=== PATIENT | female | born 1970 | race African-American/Black ===

== ENCOUNTER 2016-07-04 17:17 | Emergency (ER) | payer OTHER ==
[~2016-07-04] VITALS: Ht 149.9 cm; Wt 104.3 kg
[~2016-07-04 17:17] MED LIST: ALPR2TAB2 PO; ASPI-498 PO; CARI-277 PO; CITA-77 PO; DOCU100T15 PO; ENAL20TA70 PO; GABA-339 PO; HYDR25TA4 PO; IBUP-1174 PO; INSLANTI; LIRA18IN2 SUBCUT; LUBI8CAP4 PO; MELO-86 PO; METF-312 PO; PREG50CA PO; SIME80CH6 PO; TEMA30CA PO; ZIPR80CA8 PO
[2016-07-04] MEDS ORDERED: DEXTROSE (50%) 50ML SYRG IV PRN (18:30)
[2016-07-04] MEDS ORDERED: IBUPROFEN 600 MG TAB PO PRN (22:00)
[2016-07-04] MEDS: ACCU-CHEK COMFORT CURVE STRIP VI SCH (22:00)
[2016-07-04] MEDS: AMITIZA 8 MCG PO SCH ×2 (22:00→22:45)
[2016-07-04] MEDS: INSULIN DETEMIR(LEVEMIR) 1unit/0.01ml Soln (100units/ml) SC SCH (22:00)
[2016-07-05] MEDS: metFORMIN HYDROCHLORIDE 500 MG TAB PO SCH ×3 (02:57→20:31)
[2016-07-05] MEDS: GABAPENTIN 400 MG CAP PO SCH ×4 (02:58→22:45)
[2016-07-05] MEDS: PREGABALIN CAPSULE 75 MG CAP PO SCH ×4 (02:58→22:45)
[2016-07-05] MEDS: CARISOPRODOL 350 MG TAB PO SCH ×2 (02:59→10:00)
[2016-07-05] MEDS: InsuLIN REG 1unit/0.01ml Soln (100units/ml) SC SCH ×5 (02:59→22:45)
[2016-07-05] MEDS: ACCU-CHEK COMFORT CURVE STRIP VI SCH ×4 (07:30→22:06)
[2016-07-05] MEDS: HCTZ 25 MG TAB PO SCH (07:45)
[2016-07-05] MEDS: ENALAPRIL MALEATE 10 MG TAB PO SCH (07:45)
[2016-07-05] MEDS: ASPirin-EC 81 mg tab PO SCH (07:45)
[2016-07-05] MEDS: CITALOPRAM HYDROBR 20 MG TAB PO SCH (07:45)
[2016-07-05] MEDS: INSULIN DETEMIR(LEVEMIR) 1unit/0.01ml Soln (100units/ml) SC SCH ×2 (08:30→22:44)
[2016-07-05] MEDS ORDERED: PRE FILLED SC SCH (10:00)
[2016-07-05] MEDS ORDERED: VICTOZA 18 MG/3 ML SC SCH (10:00)
[2016-07-05] MEDS: HYDROcodone-ACET 5/325MG TAB PO PRN (10:00)
[2016-07-05] MEDS: AMITIZA 8 MCG PO SCH (10:08)
[2016-07-05] MEDS: MELOXICAM 15MG PO SCH (10:08)
[2016-07-05 21:04] VITALS: BP 144/86
[2016-07-05] MEDS: VICTOZA 18 MG/3 ML SC SCH (22:45)
[2016-07-05] MEDS: PRE FILLED SC SCH (22:45)
[2016-07-06] MEDS ORDERED: GABAPENTIN 400 MG CAP ONE (06:27)
[2016-07-06] MEDS: GABAPENTIN 400 MG CAP PO SCH ×3 (06:34→23:00)
[2016-07-06] MEDS: PREGABALIN CAPSULE 75 MG CAP PO SCH ×3 (06:34→23:00)
[2016-07-06] MEDS: ACCU-CHEK COMFORT CURVE STRIP VI SCH ×4 (06:40→23:00)
[2016-07-06] MEDS: InsuLIN REG 1unit/0.01ml Soln (100units/ml) SC SCH ×4 (06:40→22:00)
[2016-07-06] MEDS: metFORMIN HYDROCHLORIDE 500 MG TAB PO SCH ×2 (08:58→18:17)
[2016-07-06] MEDS: HYDROcodone-ACET 5/325MG TAB PO PRN ×2 (09:40→23:01)
[2016-07-06] MEDS: AMITIZA 8 MCG PO SCH ×2 (09:41→23:00)
[2016-07-06] MEDS: MELOXICAM 15MG PO SCH (09:41)
[2016-07-06] MEDS: CITALOPRAM HYDROBR 20 MG TAB PO SCH (09:44)
[2016-07-06] MEDS: HCTZ 25 MG TAB PO SCH (09:46)
[2016-07-06] MEDS: ASPirin-EC 81 mg tab PO SCH (09:46)
[2016-07-06] MEDS: ENALAPRIL MALEATE 10 MG TAB PO SCH (09:46)
[2016-07-06] MEDS: INSULIN DETEMIR(LEVEMIR) 1unit/0.01ml Soln (100units/ml) SC SCH ×2 (09:49→22:00)
[2016-07-06] MEDS: ALPRAZolam 0.5 MG TAB PO PRN ×2 (09:53→23:01)
[2016-07-06] MEDS ORDERED: TEMAZEPAM 15 MG CAP PO ONE (22:45)
[2016-07-06] MEDS: VICTOZA 18 MG/3 ML SC SCH (23:00)
[2016-07-06] MEDS: CARISOPRODOL 350 MG TAB PO SCH (23:00)
[2016-07-06] MEDS: PRE FILLED SC SCH (23:00)
[2016-07-07] MEDS: PREGABALIN CAPSULE 75 MG CAP PO SCH ×2 (06:08→15:18)
[2016-07-07] MEDS: GABAPENTIN 400 MG CAP PO SCH ×2 (06:08→15:18)
[2016-07-07] MEDS: InsuLIN REG 1unit/0.01ml Soln (100units/ml) SC SCH ×2 (10:10→15:18)
[2016-07-07] MEDS: ACCU-CHEK COMFORT CURVE STRIP VI SCH ×2 (10:10→15:18)
[2016-07-07] MEDS: ASPirin-EC 81 mg tab PO SCH (10:30)
[2016-07-07] MEDS: AMITIZA 8 MCG PO SCH (10:30)
[2016-07-07] MEDS: metFORMIN HYDROCHLORIDE 500 MG TAB PO SCH (10:30)
[2016-07-07] MEDS: CITALOPRAM HYDROBR 20 MG TAB PO SCH (10:30)
[2016-07-07] MEDS: ENALAPRIL MALEATE 10 MG TAB PO SCH (10:30)
[2016-07-07] MEDS: INSULIN DETEMIR(LEVEMIR) 1unit/0.01ml Soln (100units/ml) SC SCH (10:30)
[2016-07-07] MEDS: HCTZ 25 MG TAB PO SCH (10:30)
[2016-07-07] MEDS: MELOXICAM 15MG PO SCH (10:30)
[2016-07-07] MEDS: HYDROcodone-ACET 5/325MG TAB PO PRN (15:19)
[2016-07-07 16:55] VITALS: BP 111/67
== END 2016-07-07 17:00 | disposition home or self-care (01) ==
LOC: ER 17:21
DX: F32.9 Major depressive disorder, single episode, unspecified (principal); F20.9 Schizophrenia, unspecified; M19.90 Unspecified osteoarthritis, unspecified site; R45.851 Suicidal ideations; E11.9 Type 2 diabetes mellitus without complications; E78.5 Hyperlipidemia, unspecified; I10 Essential (primary) hypertension; Z90.49 Acquired absence of other specified parts of digestive tract
CPT/HCPCS: 82962; 94660; 96372; 99285; J1815

== ENCOUNTER 2016-10-02 14:36 | Emergency (ER) | payer OTHER ==
[~2016-10-02] VITALS: Ht 162.6 cm; Wt 107.0 kg
[~2016-10-02 14:36] MED LIST changes: -METF-312 PO; +METF-370 PO
[2016-10-02] MEDS ORDERED: ONDANSETRON HCL 4 MG/2 ML VIAL IV ONE (19:45)
[2016-10-02] MEDS ORDERED: HYDROmorphone HCL 2 MG/ML VL IM ONE (19:45)
[2016-10-02] MEDS ORDERED: cefTRIAXone SOD 1,000 MG VL IM ONE (19:45)
[2016-10-02 20:04] VITALS: BP 124/87
== END 2016-10-02 20:44 | disposition home or self-care (01) ==
LOC: EDBD 14:36 → ER 14:43
DX: M54.12 Radiculopathy, cervical region (principal); M25.512 Pain in left shoulder; M79.602 Pain in left arm; G89.29 Other chronic pain; M19.90 Unspecified osteoarthritis, unspecified site; E11.9 Type 2 diabetes mellitus without complications; E78.5 Hyperlipidemia, unspecified; I10 Essential (primary) hypertension; Z90.49 Acquired absence of other specified parts of digestive tract; Z79.82 Long term (current) use of aspirin; Z79.4 Long term (current) use of insulin
CPT/HCPCS: 72040; 72070; 96372; 96374; 99284; J0696; J1170; J2405

== ENCOUNTER 2017-01-24 18:27 | Emergency (ER) | payer OTHER ==
[~2017-01-24] VITALS: Ht 167.6 cm; Wt 99.8 kg
[~2017-01-24 18:27] MED LIST changes: -MELO-86 PO; +MELO15TA4 PO
[2017-01-24] MEDS ORDERED: SODIUM CHLORIDE 0.9% 1,000 ML IVB ONE (18:32)
[2017-01-24] MEDS ORDERED: LORazepam 2MG/ML-1ML VIAL IV ONE (18:45)
[2017-01-24 18:55] VITALS: BP 133/68
[2017-01-24 19:54] LABS: Basophils # (auto) 0 uL; Basophils % (auto) 0.5 % (0.0-2.0); Eosinophils # (auto) 0.2 uL; Hematocrit 37.3 % (36.0-46.0); Hemoglobin 12.2 g/dL (12.2-16.2); Lymphocytes # (auto) 3.6 uL; Lymphocytes % (auto) 46.2 % (10.0-50.0); Mean Corpuscular Hemoglobin 30.1 pg (28.0-32.0); Mean Corpuscular Hgb Conc. 32.6 g/dL (32.0-36.0); Mean Corpuscular Volume 92.3 fL (80.0-100.0); Mean Platelet Volume 8.3 fL (6.9-10.8); Monocytes # (auto) 0.4 uL; Monocytes % (auto) 5.1 % (0.0-12.0); Neutrophils # (auto) 3.5 uL; Neutrophils % (auto) 45.2 % (37.0-80.0); Nucleated Red Blood Cells % 0.1 %; Platelet Count (auto) 324 10^3/uL (140-450); Red Cell Distribution Width 15.1 % (11.8-14.3); White Blood Cell 7.8 10^3/uL (4.4-10.8)
[2017-01-24 20:04] LABS: Albumin 3.5 g/dL (3.4-5.0); Anion Gap 10 (5-15); Aspartate Aminotransferase 19 U/L (15-37); BUN/Creatinine Ratio 20.6; Blood Urea Nitrogen 14 mg/dL (7-18); Calcium 8.7 mg/dL (8.5-10.1); Carbon Dioxide 23 mmol/L (21-32); Chloride 111 mmol/L (98-107); GFR African American 120 mL/min; GFR Non-African American 99 mL/min; Glucose 186 mg/dL (74-106); Potassium 3.5 mmol/L (3.5-5.1); Sodium 144 mmol/L (136-145)
[2017-01-24 20:06] LABS: Alkaline Phosphatase 76 U/L (45-117); Bilirubin, Total < 0.1 mg/dL (0.2-1.0); Total Protein 7.7 g/dL (6.4-8.2)
== END 2017-01-24 20:59 | disposition home or self-care (01) ==
LOC: EDBD 18:27 → ER 18:29
DX: F10.120 Alcohol abuse with intoxication, uncomplicated (principal); E11.9 Type 2 diabetes mellitus without complications; E78.5 Hyperlipidemia, unspecified; I10 Essential (primary) hypertension; M19.90 Unspecified osteoarthritis, unspecified site; Z90.49 Acquired absence of other specified parts of digestive tract; Z79.4 Long term (current) use of insulin; Z79.899 Other long term (current) drug therapy
CPT/HCPCS: 36415; 80053; 80320; 85025; 94761; 96361; 96374

== ENCOUNTER 2017-03-20 11:41 | Emergency (ER) | payer OTHER ==
[~2017-03-20] VITALS: Ht 149.9 cm; Wt 104.3 kg
[~2017-03-20 11:41] MED LIST changes: -MELO15TA4 PO; +MELO1TAB56 PO
[2017-03-20 11:50] VITALS: BP 135/76
[2017-03-20 12:53] LABS: Basophils # (auto) 0 uL; Basophils % (auto) 0.7 % (0.0-2.0); Eosinophils # (auto) 0.1 uL; Hematocrit 39.2 % (36.0-46.0); Hemoglobin 12.9 g/dL (12.2-16.2); Lymphocytes # (auto) 2.2 uL; Lymphocytes % (auto) 35.9 % (10.0-50.0); Mean Corpuscular Hemoglobin 29.8 pg (28.0-32.0); Mean Corpuscular Volume 90.3 fL (80.0-100.0); Monocytes # (auto) 0.5 uL; Monocytes % (auto) 8.9 % (0.0-12.0); Neutrophils # (auto) 3.2 uL; Neutrophils % (auto) 52.5 % (37.0-80.0); Nucleated Red Blood Cells % 0.1 %; Platelet Count (auto) 363 10^3/uL (140-450); Red Blood Cells 4.35 10^6/uL (4.0-5.20); Red Cell Distribution Width 16.2 % (11.8-14.3); White Blood Cell 6.2 10^3/uL (4.4-10.8)
[2017-03-20 13:40] LABS: Alanine Aminotransferase 19 U/L (13-56); Alkaline Phosphatase 70 U/L (45-117); Aspartate Aminotransferase 10 U/L (15-37); BUN/Creatinine Ratio 20.9; Bilirubin, Total 0.3 mg/dL (0.2-1.0); Blood Urea Nitrogen 14 mg/dL (7-18); Calcium 8.9 mg/dL (8.5-10.1); Chloride 105 mmol/L (98-107); GFR African American 122 mL/min; GFR Non-African American 101 mL/min; Glucose 103 mg/dL (74-106); Potassium 3.9 mmol/L (3.5-5.1); Sodium 141 mmol/L (136-145); Total Protein 7.5 g/dL (6.4-8.2)
[2017-03-20 13:41] LABS: Albumin 3.4 g/dL (3.4-5.0); Magnesium 2.3 mg/dL (1.6-2.6)
[2017-03-20 14:13] LABS: Anion Gap 10 (5-15); Carbon Dioxide 26 mmol/L (21-32)
== END 2017-03-20 14:00 | disposition left against medical advice (07) ==
LOC: ER 11:41 → EDBD 11:41 → ER 14:00
DX: R53.1 Weakness (principal); G89.29 Other chronic pain; M54.2 Cervicalgia; Z53.21 Procedure and treatment not carried out due to patient leaving prior to being seen by health care provider
CPT/HCPCS: 36415; 80053; 83735; 84484; 84702; 85025; 93005

== ENCOUNTER 2017-05-22 15:14 | Emergency (ER) | payer OTHER ==
[~2017-05-22] VITALS: Ht 149.9 cm; Wt 103.0 kg
[2017-05-22 15:33] VITALS: BP 138/95
[2017-05-22] MEDS ORDERED: HYDROcodone-ACET 10/325MG TAB PO ONE (17:45)
== END 2017-05-22 18:20 | disposition home or self-care (01) ==
LOC: ER 15:14 → EDBD 15:14 → ER 18:20
DX: J32.9 Chronic sinusitis, unspecified (principal); M54.2 Cervicalgia; E11.9 Type 2 diabetes mellitus without complications; I10 Essential (primary) hypertension; Z79.82 Long term (current) use of aspirin; Z79.4 Long term (current) use of insulin; Z90.49 Acquired absence of other specified parts of digestive tract; V49.50XA Passenger injured in collision with unspecified motor vehicles in traffic accident, initial encounter; Y93.89 Activity, other specified; Y92.488 Other paved roadways as the place of occurrence of the external cause; Y99.8 Other external cause status
CPT/HCPCS: 70450; 72125; 73502

== ENCOUNTER 2017-07-09 22:20 | Emergency (ER) | payer OTHER ==
[~2017-07-09] VITALS: Ht 149.9 cm; Wt 99.8 kg
[2017-07-09 22:41] VITALS: BP 141/68
[2017-07-10] MEDS ORDERED: cefTRIAXone SOD 1,000 MG VL IM ONE (01:15)
== END 2017-07-10 01:50 | disposition home or self-care (01) ==
LOC: ER 22:20
DX: N61.0 Mastitis without abscess (principal); I10 Essential (primary) hypertension; E11.9 Type 2 diabetes mellitus without complications; E78.5 Hyperlipidemia, unspecified; Z79.4 Long term (current) use of insulin; Z79.82 Long term (current) use of aspirin; Z90.49 Acquired absence of other specified parts of digestive tract
CPT/HCPCS: 82962; 96372; 99283; J0696

== ENCOUNTER 2019-02-10 17:00 | Emergency (ER) | payer OTHER ==
[~2019-02-10] VITALS: Ht 149.9 cm; Wt 107.5 kg
[~2019-02-10 17:00] MED LIST changes: +ENAL20TA PO; -ENAL20TA70 PO
[2019-02-10] MEDS ORDERED: KETOROLAC TROMETH 60MG/2ML VIAL IM ONE (21:30)
[2019-02-10] MEDS ORDERED: HYDROcodone-ACET 10/325MG TAB PO ONE ×2 (22:00)
[2019-02-10 23:50] VITALS: BP 151/70
== END 2019-02-10 23:54 | disposition home or self-care (01) ==
LOC: ER 17:00 → EDSEX 17:00 → EDBD 17:00 → ER 23:54
DX: M54.5 Low back pain (principal); G89.29 Other chronic pain; J45.909 Unspecified asthma, uncomplicated; I10 Essential (primary) hypertension; E11.9 Type 2 diabetes mellitus without complications; G62.9 Polyneuropathy, unspecified; F41.9 Anxiety disorder, unspecified; F32.9 Major depressive disorder, single episode, unspecified; F20.9 Schizophrenia, unspecified; E78.5 Hyperlipidemia, unspecified; Z79.899 Other long term (current) drug therapy; Z79.4 Long term (current) use of insulin; Z79.82 Long term (current) use of aspirin; Z90.49 Acquired absence of other specified parts of digestive tract; Z98.890 Other specified postprocedural states
CPT/HCPCS: 72128; 72131; 93005

== ENCOUNTER 2021-08-01 13:28 | Emergency (ER) | payer OTHER ==
[~2021-08-01] VITALS: Ht 149.9 cm; Wt 78.5 kg
[~2021-08-01 13:28] MED LIST changes: -ENAL20TA PO; +ENAL20TA8 PO; +ZIPR80CA37 PO; -ZIPR80CA8 PO
[2021-08-01 14:34] VITALS: BP 128/71
[2021-08-01] MEDS ORDERED: IBUP800T27 PO (14:34)
== END 2021-08-01 14:39 | disposition home or self-care (01) ==
LOC: ER 13:28
DX: S63.501A Unspecified sprain of right wrist, initial encounter (principal); I10 Essential (primary) hypertension; E11.9 Type 2 diabetes mellitus without complications; E78.5 Hyperlipidemia, unspecified; Z90.49 Acquired absence of other specified parts of digestive tract; Z79.82 Long term (current) use of aspirin; Z79.4 Long term (current) use of insulin; Z79.899 Other long term (current) drug therapy; Y92.89 Other specified places as the place of occurrence of the external cause; Y99.8 Other external cause status
CPT/HCPCS: 73110

== ENCOUNTER 2021-12-27 13:19 | Inpatient (IN) | payer OTHER ==
[~2021-12-27] VITALS: Ht 149.9 cm; Wt 79.8 kg
[~2021-12-27 13:19] MED LIST changes: +IBUP800T27 PO
[2021-12-27 14:00] LABS: Basophils # (auto) 0 10 ^3/uL (0-0.2); Basophils % (auto) 0.6 % (0.0-2.0); Eosinophils # (auto) 0 10 ^3/uL (0-0.8); Eosinophils % (auto) 0.6 % (0.0-7.0); Hematocrit 43.9 % (36.0-46.0); Hemoglobin 14.8 g/dL (12.2-16.2); Lymphocytes # (auto) 3.2 10 ^3/uL (0.4-5.4); Lymphocytes % (auto) 44.5 % (10.0-50.0); Mean Corpuscular Hemoglobin 32.5 pg (28.0-32.0); Mean Corpuscular Hgb Conc. 33.6 g/dL (32.0-36.0); Mean Corpuscular Volume 96.7 fL (80.0-100.0); Monocytes # (auto) 0.6 10 ^3/uL (0-1.3); Monocytes % (auto) 8.5 % (0.0-12.0); Neutrophils # (auto) 3.2 10 ^3/uL (1.6-8.6); Neutrophils % (auto) 45.8 % (37.0-80.0); Red Blood Cells 4.54 10^6/uL (4.0-5.20); Red Cell Distribution Width 13.9 % (11.8-14.3); White Blood Cell 7.1 10^3/uL (4.4-10.8)
[2021-12-27 14:17] LABS: INR 1.03 (0.9-1.15); Partial Thromboplastin Time 22.4 sec (24.6-33.4)
[2021-12-27 14:19] LABS: Albumin 3.3 g/dL (3.4-5.0); BUN/Creatinine Ratio 25.3; Calcium 8.3 mg/dL (8.5-10.1); Magnesium 2.6 mg/dL (1.6-2.6); Potassium 4.1 mmol/L (3.5-5.1)
[2021-12-27 14:21] LABS: Bilirubin, Total 0.3 mg/dL (0.2-1.0); Total Protein 6.6 g/dL (6.4-8.2)
[2021-12-27] MEDS ORDERED: LACTATED RINGER'S 1,000 ML IV ONE (14:30)
[2021-12-27] MEDS ORDERED: NITROGLYCERIN 0.4 MG SL TAB SL PRN (15:30)
[2021-12-27] MEDS ORDERED: ONDANSETRON HCL 4 MG/2 ML VIAL IV PRN (15:30)
[2021-12-27] MEDS ORDERED: ACETAMINOPHEN 325 MG TAB PO PRN (15:30)
[2021-12-27] MEDS ORDERED: MORPHINE SULFATE INJ 2 MG/ml SYRG IV PRN (15:30)
[2021-12-27] MEDS ORDERED: PANTOPRAZOLE 40 MG/10 ML VIAL INJ IV ONE (15:30)
[2021-12-27] MEDS ORDERED: KETOROLAC TROMETH 30 MG/ML 1ML VIAL IV ONE (16:00)
[2021-12-27] MEDS ORDERED: KETOROLAC TROMETH 30 MG/ML 1ML VIAL IV PRN (16:00)
[2021-12-27] MEDS ORDERED: ALBUTEROL SULF 2.5 MG/0.5ML(0.5%) NEB SOLN NEB PRN (16:15)
[2021-12-27] MEDS ORDERED: DEXTROSE (50%) 50ML SYRG IV PRN (16:15)
[2021-12-27] MEDS: SODIUM CHLORIDE 0.9% 1,000 ML IV SCH (16:21)
[2021-12-27 16:26] VITALS: BP 135/74
[2021-12-27 16:52] LABS: Cholesterol 149 mg/dL (< 200)
[2021-12-27 16:55] LABS: HDL Cholesterol 102 mg/dL (40-59); LDL Cholesterol 34 mg/dL (< 100); Triglycerides 106 mg/dL (< 150)
[2021-12-27] MEDS: InsuLIN REG 1unit/0.01ml Soln (100units/ml) SC SCH ×2 (18:31→21:44)
[2021-12-27] MEDS: ACCU-CHEK COMFORT CURVE STRIP VI SCH ×2 (18:32→21:44)
[2021-12-27] MEDS ORDERED: TRAZ100T3 PO (21:42)
[2021-12-27] MEDS ORDERED: EMPA1TAB PO (21:42)
[2021-12-27] MEDS ORDERED: POTA1TAB4 PO (21:42)
[2021-12-27] MEDS ORDERED: LISI-275 PO (21:42)
[2021-12-27] MEDS ORDERED: ATOR10TA52 PO (21:42)
[2021-12-27] MEDS ORDERED: PANT40T PO (21:42)
[2021-12-27] MEDS ORDERED: FURO40TA4 PO (21:42)
[2021-12-27 22:00] VITALS: BP 144/72
[2021-12-27] MEDS: ZIPRASIDONE HYDROCHLORIDE 80 MG PO SCH (22:00)
[2021-12-27] MEDS: PREGABALIN CAPSULE 75 MG CAP PO SCH (22:00)
[2021-12-27] MEDS: ATORVASTATIN 20 MG TAB PO SCH (22:02)
[2021-12-27] MEDS: METOPROLOL TARTRATE 25 MG TAB PO SCH (22:03)
[2021-12-28 05:00] VITALS: BP 138/77
[2021-12-28] MEDS: PREGABALIN CAPSULE 75 MG CAP PO SCH ×3 (05:52→20:38)
[2021-12-28 06:56] LABS: Basophils # (auto) 0 10 ^3/uL (0-0.2); Basophils % (auto) 0.5 % (0.0-2.0); Eosinophils # (auto) 0.1 10 ^3/uL (0-0.8); Hemoglobin 12.6 g/dL (12.2-16.2); Lymphocytes # (auto) 2.2 10 ^3/uL (0.4-5.4); Lymphocytes % (auto) 45.7 % (10.0-50.0); Mean Corpuscular Hemoglobin 33.1 pg (28.0-32.0); Mean Corpuscular Hgb Conc. 33.9 g/dL (32.0-36.0); Mean Corpuscular Volume 97.6 fL (80.0-100.0); Monocytes # (auto) 0.4 10 ^3/uL (0-1.3); Monocytes % (auto) 8.6 % (0.0-12.0); Neutrophils # (auto) 2.1 10 ^3/uL (1.6-8.6); Neutrophils % (auto) 43.2 % (37.0-80.0); Nucleated Red Blood Cells % 0.1 %; Red Blood Cells 3.79 10^6/uL (4.0-5.20); Red Cell Distribution Width 13.5 % (11.8-14.3); White Blood Cell 4.9 10^3/uL (4.4-10.8)
[2021-12-28] MEDS: ACCU-CHEK COMFORT CURVE STRIP VI SCH ×4 (06:57→21:04)
[2021-12-28] MEDS: InsuLIN REG 1unit/0.01ml Soln (100units/ml) SC SCH ×4 (06:57→21:29)
[2021-12-28 07:08] LABS: Albumin 2.6 g/dL (3.4-5.0); Calcium 7.9 mg/dL (8.5-10.1); Potassium 3.8 mmol/L (3.5-5.1)
[2021-12-28 07:12] LABS: Bilirubin, Total 0.4 mg/dL (0.2-1.0); Total Protein 5.6 g/dL (6.4-8.2)
[2021-12-28 08:00] VITALS: BP 147/82
[2021-12-28] MEDS: CITALOPRAM HYDROBR 20 MG TAB PO SCH (08:29)
[2021-12-28] MEDS: ENOXAPARIN SOD 40 MG/0.4 ML SYRINGE SC SCH (08:31)
[2021-12-28] MEDS: ENALAPRIL MALEATE 10 MG TAB PO SCH (08:32)
[2021-12-28] MEDS: ASPirin-EC 81 mg tab PO SCH (08:32)
[2021-12-28] MEDS: METOPROLOL TARTRATE 25 MG TAB PO SCH ×2 (08:32→21:03)
[2021-12-28] MEDS: CARISOPRODOL 350 MG TAB PO SCH (08:33)
[2021-12-28] MEDS: SODIUM CHLORIDE 0.9% 1,000 ML IV SCH (08:34)
[2021-12-28] MEDS ORDERED: HCTZ 25 MG TAB PO SCH (10:00)
[2021-12-28] MEDS ORDERED: PANTOPRAZOLE 40 MG/10 ML VIAL INJ IV SCH (10:00)
[2021-12-28] MEDS ORDERED: Meloxicam 15MG TAB PO SCH (10:00)
[2021-12-28 12:00] VITALS: BP 141/79
[2021-12-28 16:00] VITALS: BP 151/73
[2021-12-28] MEDS: GABAPENTIN 400 MG CAP PO SCH ×2 (17:50→21:04)
[2021-12-28] MEDS: FUROSEMIDE 40 MG TAB PO SCH (17:55)
[2021-12-28 19:10] VITALS: BP 149/82
[2021-12-28] MEDS: ATORVASTATIN 20 MG TAB PO SCH (20:38)
[2021-12-28] MEDS: ZIPRASIDONE HYDROCHLORIDE 80 MG PO SCH (20:38)
[2021-12-28 22:00] VITALS: BP 125/77
[2021-12-28] MEDS ORDERED: traZODone HCL 50 MG TAB PO SCH (22:00)
[2021-12-29 05:20] VITALS: BP 99/59
[2021-12-29] MEDS: GABAPENTIN 400 MG CAP PO SCH ×2 (05:36→12:32)
[2021-12-29] MEDS: PREGABALIN CAPSULE 75 MG CAP PO SCH (05:37)
[2021-12-29] MEDS: FUROSEMIDE 40 MG TAB PO SCH (05:37)
[2021-12-29] MEDS: ACCU-CHEK COMFORT CURVE STRIP VI SCH ×2 (06:19→12:29)
[2021-12-29] MEDS: InsuLIN REG 1unit/0.01ml Soln (100units/ml) SC SCH ×2 (06:20→11:30)
[2021-12-29] MEDS ORDERED: EMPAGLIFLOZIN 10 MG TAB PO SCH (07:00)
[2021-12-29 08:45] VITALS: BP 121/64
[2021-12-29] MEDS: ENOXAPARIN SOD 40 MG/0.4 ML SYRINGE SC SCH (09:47)
[2021-12-29] MEDS: ASPirin-EC 81 mg tab PO SCH (09:48)
[2021-12-29] MEDS: CITALOPRAM HYDROBR 20 MG TAB PO SCH (09:52)
[2021-12-29] MEDS: METOPROLOL TARTRATE 25 MG TAB PO SCH (09:52)
[2021-12-29] MEDS: CARISOPRODOL 350 MG TAB PO SCH (09:53)
[2021-12-29] MEDS: ENALAPRIL MALEATE 10 MG TAB PO SCH (09:53)
[2021-12-29] MEDS ORDERED: PANTOPRAZOLE 40 MG TAB PO SCH (10:00)
[2021-12-29] MEDS ORDERED: INSULIN LANTUS (GLARGINE) 1 /0.01ml (100units/ml) SC SCH (10:00)
[2021-12-29 12:36] VITALS: BP 130/78
[2021-12-29 13:00] VITALS: BP 130/78
== END 2021-12-29 15:23 | disposition home or self-care (01) | DRG 48 ==
LOC: EDUNIT# 13:19 → ER 13:19 → EDBD 13:19 → TELE 15:32 → TELE-WESTW 21:04
PROVIDERS: ADMIT Nurse Practitioner Family; ATTEND Student in an Organized Health Care Education/Training Program
DX: M54.12 Radiculopathy, cervical region (principal); E87.0 Hyperosmolality and hypernatremia; E11.40 Type 2 diabetes mellitus with diabetic neuropathy, unspecified; E86.0 Dehydration; I48.91 Unspecified atrial fibrillation; E11.319 Type 2 diabetes mellitus with unspecified diabetic retinopathy without macular edema; E11.9 Type 2 diabetes mellitus without complications; I50.9 Heart failure, unspecified; I11.0 Hypertensive heart disease with heart failure; E78.5 Hyperlipidemia, unspecified; I44.7 Left bundle-branch block, unspecified; F32.A Depression, unspecified; R20.0 Anesthesia of skin; Z20.822 Contact with and (suspected) exposure to COVID-19; F41.9 Anxiety disorder, unspecified; M19.90 Unspecified osteoarthritis, unspecified site; Z79.4 Long term (current) use of insulin; Z82.49 Family history of ischemic heart disease and other diseases of the circulatory system; Z82.5 Family history of asthma and other chronic lower respiratory diseases; Z83.3 Family history of diabetes mellitus; Z98.84 Bariatric surgery status; Z68.35 Body mass index [BMI] 35.0-35.9, adult; Z90.49 Acquired absence of other specified parts of digestive tract
CPT/HCPCS: 36415; 71045; 80053; 80061; 82962; 83036; 83735; 83880; 84443; 84484; 85025; 85379; 85610; 85730; 87426; 93005; 93306; 96361; 96374; 96375; C9113; G0378; J1815; J1885; J2405

== ENCOUNTER 2023-05-21 19:14 | Emergency (ER) | payer OTHER ==
[~2023-05-21] VITALS: Ht 149.9 cm; Wt 71.0 kg
[~2023-05-21 19:14] MED LIST changes: +ATOR10TA52 PO; -CARI-277 PO; +EMPA1TAB PO; +ENAL1TAB48 PO; -ENAL20TA8 PO; +FURO40TA4 PO; +IBUP-1456 PO; -IBUP800T27 PO; +LISI-275 PO; +MELO-335 PO; -MELO1TAB56 PO; +PANT40T PO; +POTA1TAB4 PO; -PREG50CA PO; +SIME80CH49 PO; -SIME80CH6 PO; +TRAZ-228 PO; -ZIPR80CA37 PO
[2023-05-21] MEDS: SODIUM CHLORIDE 0.9% 2,150 ML IV ONE (19:57)
[2023-05-21] MEDS: cefTRIAXone 1GM/50ML D5W 50 ML IV ONE (19:59)
[2023-05-21 20:18] LABS: Basophils # (auto) 0 10 ^3/uL (0-0.2); Basophils % (auto) 0.1 % (0.0-2.0); Eosinophils # (auto) 0 10 ^3/uL (0-0.8); Hematocrit 39.4 % (36.0-46.0); Hemoglobin 13.2 g/dL (12.2-16.2); Lymphocytes # (auto) 0.5 10 ^3/uL (0.4-5.4); Lymphocytes % (auto) 5.4 % (10.0-50.0); Mean Corpuscular Hemoglobin 33.4 pg (28.0-32.0); Mean Corpuscular Hgb Conc. 33.5 g/dL (32.0-36.0); Mean Corpuscular Volume 99.6 fL (80.0-100.0); Monocytes # (auto) 0.4 10 ^3/uL (0-1.3); Monocytes % (auto) 4.3 % (0.0-12.0); Neutrophils # (auto) 7.6 10 ^3/uL (1.6-8.6); Neutrophils % (auto) 90.2 % (37.0-80.0); Nucleated Red Blood Cells % 0.1 %; Red Blood Cells 3.96 10^6/uL (4.0-5.20); Red Cell Distribution Width 14.3 % (11.8-14.3); White Blood Cell 8.5 10^3/uL (4.4-10.8)
[2023-05-21 20:29] LABS: Alanine Aminotransferase 28 U/L (7-40); Albumin 3.9 g/dL (3.2-4.8); Alkaline Phosphatase 92 U/L (46-116); Anion Gap 9 (5-15); Aspartate Aminotransferase 48 U/L (13-40); BUN/Creatinine Ratio 14.7 (10.0-20.0); Bilirubin, Total 0.6 mg/dL (0.2-1.0); Blood Urea Nitrogen 21 mg/dL (9-23); Calcium 8.5 mg/dL (8.5-10.1); Carbon Dioxide 26 mmol/L (20-30); Chloride 105 mmol/L (98-107); Glucose 269 mg/dL (74-106); Potassium 3.8 mmol/L (3.5-5.1); Sodium 140 mmol/L (136-145); Total Protein 5.9 g/dL (5.7-8.2)
[2023-05-21] MEDS: ONDANSETRON ODT 4 MG TAB PO ONE (21:25)
[2023-05-21] MEDS: KETOROLAC TROMETH 30 MG/ML 1ML VIAL IV ONE (21:27)
[2023-05-21 21:49] LABS: Urine Bacteria NONE SEEN /hpf (None Seen); Urine Blood 1+ /uL (Negative); Urine Clarity HAZY (Clear); Urine Color Yellow (Yellow); Urine Protein, UAD 1+ (Negative); Urine Specific Gravity 1.018 (1.001-1.035); Urine Urobilinogen Normal (Negative); Urine WBC 233 /hpf (0 - 5); Urine WBC Clumps PRESENT /hpf (None Seen); Urine pH 5.5 (5.0-8.0)
[2023-05-21] MEDS ORDERED: ZOFR4T PO (22:51)
[2023-05-21] MEDS ORDERED: BACDST PO (22:51)
[2023-05-21] MEDS ORDERED: ACET500T58 PO (22:52)
[2023-05-21] MEDS: cefTRIAXone SOD 1,000 MG VL IM ONE (23:20)
[2023-05-21] MEDS: levoFLOXacin 250 MG TAB PO ONE (23:26)
[2023-05-21 23:29] VITALS: BP 93/59; PULSE 76; RESP 16; TEMP 98.3; O2SAT 95
== END 2023-05-21 23:40 | disposition home or self-care (01) ==
LOC: ER 19:14
DX: N12 Tubulo-interstitial nephritis, not specified as acute or chronic (principal); E11.9 Type 2 diabetes mellitus without complications; E78.5 Hyperlipidemia, unspecified; I10 Essential (primary) hypertension; Z90.49 Acquired absence of other specified parts of digestive tract
CPT/HCPCS: 36415; 80053; 81001; 83605; 85025; 87040; 87077; 87186; 96365; 96375; 99284; J0696; J1885; J7030; Q0162

== ENCOUNTER 2023-08-24 18:50 | Inpatient (IN) | payer OTHER ==
[~2023-08-24] VITALS: Ht 160 cm; Wt 73.9 kg
[~2023-08-24 18:50] MED LIST changes: +ACET500T58 PO; +BACDST PO; -MELO-335 PO; +MELO15TA29 PO; +ZOFR4T PO
[2023-08-24] MEDS: VANCOMYCIN 1GM/200ML 200 ML IV ONE (19:45)
[2023-08-24] MEDS: SODIUM CHLORIDE 0.9% 1,000 ML IV ONE ×3 (19:45→22:15)
[2023-08-24] MEDS: PIPERACILLIN-TAZOB 3.375GM 100 ML IV ONE (20:00)
[2023-08-24 20:09] LABS: Basophils # (auto) 0 10 ^3/uL (0-0.2); Basophils % (auto) 0.1 % (0.0-2.0); Eosinophils # (auto) 0.1 10 ^3/uL (0-0.8); Eosinophils % (auto) 0.5 % (0.0-7.0); Hematocrit 21.6 % (36.0-46.0); Hemoglobin 7.2 g/dL (12.2-16.2); Lymphocytes # (auto) 0.4 10 ^3/uL (0.4-5.4); Lymphocytes % (auto) 3.3 % (10.0-50.0); Mean Corpuscular Hemoglobin 32.9 pg (28.0-32.0); Mean Corpuscular Hgb Conc. 33.1 g/dL (32.0-36.0); Mean Corpuscular Volume 99.3 fL (80.0-100.0); Monocytes # (auto) 0.6 10 ^3/uL (0-1.3); Monocytes % (auto) 5.9 % (0.0-12.0); Neutrophils # (auto) 9.7 10 ^3/uL (1.6-8.6); Neutrophils % (auto) 90.2 % (37.0-80.0); Nucleated Red Blood Cells % 0.2 %; Red Blood Cells 2.18 10^6/uL (4.0-5.20); Red Cell Distribution Width 14.7 % (11.8-14.3); White Blood Cell 10.7 10^3/uL (4.4-10.8)
[2023-08-24 20:13] LABS: Urine Bacteria None Seen /hpf (None Seen)
[2023-08-24 20:15] VITALS: PULSE 88; RESP 16; O2SAT 96
[2023-08-24] MEDS: ACETAMINOPHEN 325 MG TAB PO ONE (20:17)
[2023-08-24 20:28] LABS: Alanine Aminotransferase 18 U/L (7-40); Albumin 2.7 g/dL (3.2-4.8); Alkaline Phosphatase 88 U/L (46-116); Anion Gap 7 (5-15); Aspartate Aminotransferase 23 U/L (13-40); BUN/Creatinine Ratio 15.3 (10.0-20.0); Blood Urea Nitrogen 13 mg/dL (9-23); Calcium 7.9 mg/dL (8.7-10.4); Carbon Dioxide 24 mmol/L (20-30); Chloride 109 mmol/L (98-107); Glucose 260 mg/dL (74-106); Sodium 140 mmol/L (136-145)
[2023-08-24 20:29] LABS: Bilirubin, Total 0.2 mg/dL (0.2-1.0); Total Protein 4.8 g/dL (5.7-8.2)
[2023-08-24 20:33] LABS: Urine Blood Negative /uL (Negative); Urine Clarity Clear (Clear); Urine Color Light-Yellow (Yellow); Urine Protein, UAD Negative (Negative); Urine Specific Gravity 1.021 (1.001-1.035); Urine Urobilinogen Normal (Negative); Urine WBC 1 /hpf (0 - 5); Urine pH 5.5 (5.0-9.0)
[2023-08-24 20:35] LABS: Potassium 5.7 mmol/L (3.5-5.1)
[2023-08-24] MEDS: IOHEXOL 300 MG/ML 100ML BOTTLE IJ ONE (21:29)
[2023-08-24 22:45] VITALS: BP 82/44; PULSE 86; RESP 20; TEMP 98.1
[2023-08-24] MEDS ORDERED: DEXTROSE (50%) 50ML SYRG IV PRN (22:45)
[2023-08-24] MEDS ORDERED: NITROGLYCERIN 0.4 MG SL TAB SL PRN (22:45)
[2023-08-24] MEDS ORDERED: DOCUSATE SOD 100 MG CAP PO PRN (22:45)
[2023-08-24] MEDS ORDERED: VANCOMYCIN PER PHARMACY 0 MG IV SCH (22:45)
[2023-08-24 23:10] VITALS: BP 90/55; PULSE 96; RESP 23; TEMP 98.2
[2023-08-24] MEDS: ALBUMIN 25% 100 ML IV ONE (23:15)
[2023-08-24] MEDS: ONDANSETRON HCL 4 MG/2 ML VIAL IV ONE (23:28)
[2023-08-24] MEDS: SODIUM ZIRCONIUM CYCL 10 GM PAK PO ONE (23:35)
[2023-08-25] VITALS (10 sets, daily range): BP systolic 104–128; BP diastolic 47–70; PULSE 82–106; RESP 14–24; TEMP 97.9–99; O2SAT 96–99
[2023-08-25] MEDS: ACCU-CHEK COMFORT CURVE STRIP VI SCH
[2023-08-25] MEDS: NOREPINEPHRINE 8 MG/250ML KIT 250 ML IV SCH (00:03)
[2023-08-25] MEDS: InsuLIN REG 1unit/0.01ml Soln (100units/ml) SC SCH (00:37)
[2023-08-25] MEDS: ACETAMINOPHEN 325 MG TAB PO PRN (02:45)
[2023-08-25] MEDS: PIPERACILLIN-TAZOB 3.375GM 100 ML IV SCH (06:08)
[2023-08-25 07:07] LABS: Basophils # (auto) 0 10 ^3/uL (0-0.2); Lymphocytes # (auto) 1.2 10 ^3/uL (0.4-5.4); Lymphocytes % (auto) 10.3 % (10.0-50.0); Mean Corpuscular Volume 95.2 fL (80.0-100.0); Monocytes # (auto) 0.9 10 ^3/uL (0-1.3)
[2023-08-25 07:11] LABS: Basophils % (auto) 0.1 % (0.0-2.0); Eosinophils # (auto) 0 10 ^3/uL (0-0.8); Eosinophils % (auto) 0.3 % (0.0-7.0); Hematocrit 28.5 % (36.0-46.0); Hemoglobin 9.7 g/dL (12.2-16.2); Mean Corpuscular Hemoglobin 32.3 pg (28.0-32.0); Neutrophils # (auto) 9.6 10 ^3/uL (1.6-8.6); Neutrophils % (auto) 81.3 % (37.0-80.0); Nucleated Red Blood Cells % 0.2 %; Red Blood Cells 2.99 10^6/uL (4.0-5.20); Red Cell Distribution Width 15.9 % (11.8-14.3); White Blood Cell 11.8 10^3/uL (4.4-10.8)
[2023-08-25 07:25] LABS: Alanine Aminotransferase 16 U/L (7-40); Albumin 3.3 g/dL (3.2-4.8); Alkaline Phosphatase 80 U/L (46-116); Anion Gap 7 (5-15); Aspartate Aminotransferase 21 U/L (13-40); BUN/Creatinine Ratio 10.6 (10.0-20.0); Bilirubin, Total 0.3 mg/dL (0.2-1.0); Blood Urea Nitrogen 7 mg/dL (9-23); Calcium 7.9 mg/dL (8.5-10.1); Carbon Dioxide 24 mmol/L (20-30); Chloride 112 mmol/L (98-107); Glucose 136 mg/dL (74-106); Potassium 4.4 mmol/L (3.5-5.1); Sodium 143 mmol/L (136-145); Total Protein 5.5 g/dL (5.7-8.2)
[2023-08-25] MEDS: MORPHINE SULFATE INJ 2 MG/ml SYRG IV PRN (08:21)
[2023-08-25] MEDS: ZINC SULFATE 220mg CAP or TAB PO SCH (09:28)
[2023-08-25] MEDS: ASCORBIC ACID 500 MG TAB PO SCH (09:29)
[2023-08-25] MEDS: MULTIPLE VITAMIN TAB PO SCH (09:29)
[2023-08-25] MEDS: ENOXAPARIN SOD 40 MG/0.4 ML SYRINGE SC SCH (09:48)
[2023-08-25] MEDS: FAMOTIDINE (10MG/ML) 2ML VL IV SCH (09:48)
[2023-08-25] MEDS: VANCOMYCIN 1GM/200ML 200 ML IV SCH (11:59)
[2023-08-25] MEDS: TEMAZEPAM 15 MG CAP PO ONE (23:48)
[2023-08-26] VITALS (10 sets, daily range): BP systolic 115–135; BP diastolic 51–67; PULSE 83–107; RESP 19–22; TEMP 98.1–102.3; O2SAT 92–100
[2023-08-26 06:18] LABS: Basophils # (auto) 0 10 ^3/uL (0-0.2); Basophils % (auto) 0.1 % (0.0-2.0); Eosinophils # (auto) 0.1 10 ^3/uL (0-0.8); Eosinophils % (auto) 1.5 % (0.0-7.0); Hematocrit 28.8 % (36.0-46.0); Hemoglobin 9.2 g/dL (12.2-16.2); Lymphocytes # (auto) 1.1 10 ^3/uL (0.4-5.4); Lymphocytes % (auto) 13.5 % (10.0-50.0); Mean Corpuscular Hemoglobin 32.2 pg (28.0-32.0); Mean Corpuscular Hgb Conc. 31.9 g/dL (32.0-36.0); Monocytes # (auto) 0.7 10 ^3/uL (0-1.3); Neutrophils # (auto) 6.6 10 ^3/uL (1.6-8.6); Neutrophils % (auto) 76.9 % (37.0-80.0); Nucleated Red Blood Cells % 0.1 %; Red Blood Cells 2.86 10^6/uL (4.0-5.20); Red Cell Distribution Width 16.7 % (11.8-14.3); White Blood Cell 8.5 10^3/uL (4.4-10.8)
[2023-08-26] MEDS: HYDROcodone-ACET 7.5/325MG TAB PO PRN (10:19)
[2023-08-26] MEDS: VANCOMYCIN 1GM/200ML 200 ML IV SCH (21:03)
[2023-08-26] MEDS: AMPICILLIN & SULBACTAM SODIUM 3 GM in SODIUM CHL 0.9% 100 ML IV SCH (22:00)
[2023-08-27] VITALS (8 sets, daily range): BP systolic 106–163; BP diastolic 61–68; PULSE 68–112; RESP 14–18; TEMP 98–98.5; O2SAT 95–99
[2023-08-27] MEDS: AMPICILLIN & SULBACTAM SODIUM 3 GM in SODIUM CHL 0.9% 100 ML IV SCH (06:04)
[2023-08-27] MEDS ORDERED: ACCU-CHEK COMFORT CURVE STRIP VI ONE (13:00)
[2023-08-27] MEDS ORDERED: InsuLIN REG 1unit/0.01ml Soln (100units/ml) SC ONE (13:00)
[2023-08-27] MEDS ORDERED: DOXY1CAP57 PO (16:16)
[2023-08-27] MEDS: IOHEXOL 300 MG/ML 100ML BOTTLE IJ ONE (17:25)
[2023-08-27] MEDS: ACCU-CHEK COMFORT CURVE STRIP VI SCH (20:18)
[2023-08-27] MEDS: InsuLIN REG 1unit/0.01ml Soln (100units/ml) SC SCH (20:19)
[2023-08-27] MEDS: LACTULOSE 20Gm/30ML SOLN PO SCH (21:25)
[2023-08-27] MEDS: VANCOMYCIN 1GM/200ML 200 ML IV SCH (21:25)
[2023-08-28] VITALS (8 sets, daily range): BP systolic 102–141; BP diastolic 49–81; PULSE 68–110; RESP 14–18; TEMP 98–99.7; O2SAT 94–98
[2023-08-28 06:36] LABS: Chloride 107 mmol/L (98-107); Potassium 4.9 mmol/L (3.5-5.1); Sodium 138 mmol/L (136-145)
[2023-08-28 06:37] LABS: Anion Gap 11 (5-15); Carbon Dioxide 20 mmol/L (20-30)
[2023-08-28 06:41] LABS: Calcium 8.4 mg/dL (8.5-10.1)
[2023-08-28 06:42] LABS: Glucose 94 mg/dL (74-106)
[2023-08-28 06:49] LABS: BUN/Creatinine Ratio 12.5 (10.0-20.0); Blood Urea Nitrogen < 5 mg/dL (9-23)
[2023-08-28] MEDS: AMPICILLIN & SULBACTAM SODIUM 3 GM in SODIUM CHL 0.9% 100 ML IV SCH (08:30)
[2023-08-28 10:16] LABS: Basophils # (auto) 0 10 ^3/uL (0-0.2); Basophils % (auto) 0.1 % (0.0-2.0); Eosinophils # (auto) 0.1 10 ^3/uL (0-0.8); Eosinophils % (auto) 1.4 % (0.0-7.0); Hemoglobin 9.7 g/dL (12.2-16.2); Lymphocytes # (auto) 1.1 10 ^3/uL (0.4-5.4); Lymphocytes % (auto) 16.7 % (10.0-50.0); Mean Corpuscular Hemoglobin 32.3 pg (28.0-32.0); Mean Corpuscular Hgb Conc. 33.5 g/dL (32.0-36.0); Mean Corpuscular Volume 96.4 fL (80.0-100.0); Monocytes # (auto) 1.1 10 ^3/uL (0-1.3); Monocytes % (auto) 16.6 % (0.0-12.0); Neutrophils # (auto) 4.1 10 ^3/uL (1.6-8.6); Neutrophils % (auto) 65.2 % (37.0-80.0); Nucleated Red Blood Cells % 0.1 %; White Blood Cell 6.3 10^3/uL (4.4-10.8)
[2023-08-29] VITALS (7 sets, daily range): BP systolic 106–138; BP diastolic 54–74; PULSE 89–108; RESP 16–20; TEMP 98–99; O2SAT 92–100
[2023-08-30] VITALS (7 sets, daily range): BP systolic 101–132; BP diastolic 61–67; PULSE 86–109; RESP 16–18; TEMP 97.8–98.6; O2SAT 94–100
[2023-08-30 06:23] LABS: Chloride 109 mmol/L (98-107); Potassium 4.4 mmol/L (3.5-5.1); Sodium 136 mmol/L (136-145)
[2023-08-30 06:24] LABS: Anion Gap 6 (5-15); Calcium 8.8 mg/dL (8.5-10.1); Carbon Dioxide 21 mmol/L (20-30)
[2023-08-30 06:29] LABS: Glucose 129 mg/dL (74-106)
[2023-08-30 06:30] LABS: BUN/Creatinine Ratio 12.8 (10.0-20.0); Blood Urea Nitrogen < 5 mg/dL (9-23)
[2023-08-30 10:54] LABS: Basophils # (auto) 0 10 ^3/uL (0-0.2); Basophils % (auto) 0.3 % (0.0-2.0); Eosinophils # (auto) 0.1 10 ^3/uL (0-0.8); Eosinophils % (auto) 2.2 % (0.0-7.0); Hematocrit 28.8 % (36.0-46.0); Hemoglobin 9.8 g/dL (12.2-16.2); Lymphocytes # (auto) 1.2 10 ^3/uL (0.4-5.4); Lymphocytes % (auto) 19.5 % (10.0-50.0); Mean Corpuscular Volume 94.1 fL (80.0-100.0); Monocytes # (auto) 1.2 10 ^3/uL (0-1.3); Neutrophils # (auto) 3.7 10 ^3/uL (1.6-8.6); Neutrophils % (auto) 59.4 % (37.0-80.0); Red Blood Cells 3.06 10^6/uL (4.0-5.20); White Blood Cell 6.3 10^3/uL (4.4-10.8)
[2023-08-30 11:02] LABS: Monocytes % (auto) 18.6 % (0.0-12.0)
[2023-08-31] VITALS (7 sets, daily range): BP systolic 99–126; BP diastolic 52–71; PULSE 78–102; RESP 16–20; TEMP 97.8–98.7; O2SAT 95–99
[2023-09-01] VITALS (7 sets, daily range): BP systolic 115–139; BP diastolic 63–80; PULSE 77–97; RESP 17–19; TEMP 97.4–98.6; O2SAT 96–99
[2023-09-01 13:52] LABS: Basophils # (auto) 0 10 ^3/uL (0-0.2); Basophils % (auto) 0.3 % (0.0-2.0); Eosinophils # (auto) 0.1 10 ^3/uL (0-0.8); Eosinophils % (auto) 2.4 % (0.0-7.0); Hematocrit 28.8 % (36.0-46.0); Hemoglobin 9.7 g/dL (12.2-16.2); Lymphocytes # (auto) 1.8 10 ^3/uL (0.4-5.4); Lymphocytes % (auto) 29.9 % (10.0-50.0); Mean Corpuscular Hemoglobin 31.8 pg (28.0-32.0); Mean Corpuscular Hgb Conc. 33.6 g/dL (32.0-36.0); Mean Corpuscular Volume 94.5 fL (80.0-100.0); Monocytes % (auto) 16.9 % (0.0-12.0); Neutrophils % (auto) 50.5 % (37.0-80.0); Red Blood Cells 3.05 10^6/uL (4.0-5.20); Red Cell Distribution Width 14.9 % (11.8-14.3)
[2023-09-01 14:01] LABS: Anisocytosis Slight; Platelet Estimate Markedly Increased
[2023-09-01] MEDS: ONDANSETRON HCL 4 MG/2 ML VIAL IV PRN (20:39)
[2023-09-02] VITALS (7 sets, daily range): BP systolic 109–137; BP diastolic 59–73; PULSE 69–102; RESP 17–18; TEMP 97.5–98.7; O2SAT 95–98
[2023-09-03 01:00] VITALS: BP 131/74; PULSE 87; RESP 18; TEMP 99.5; O2SAT 95
[2023-09-03] MEDS: AMPICILLIN & SULBACTAM SODIUM 3 GM in SODIUM CHL 0.9% 100 ML IV SCH ×2 (02:52→09:35)
[2023-09-03 05:00] VITALS: BP 132/65; PULSE 84; RESP 16; TEMP 97.9; O2SAT 97
[2023-09-03 08:00] VITALS: PULSE 79; PULSE 82; RESP 20; O2SAT 96
[2023-09-03 09:00] VITALS: BP 127/58; PULSE 79; RESP 20; TEMP 98.8; O2SAT 96
[2023-09-03 13:27] VITALS: BP 121/69; PULSE 95; RESP 20; TEMP 98.3; O2SAT 95
[2023-09-03] MEDS ORDERED: OMNIPAQUE 12mg/ml 500ml ORAL SOLUTION PO ONE (15:33)
[2023-09-03 17:22] VITALS: BP 145/77; PULSE 90; RESP 20; TEMP 97.6; O2SAT 99
== END 2023-09-03 20:00 | disposition left against medical advice (07) | DRG 721 ==
LOC: EDBD 18:50 → ER 18:50 → TELE 22:51 → UNDOADMIN 22:51 → TELE 23:45 → TELE-CENTR 08-25 16:51
PROVIDERS: ADMIT Nurse Practitioner Family; ATTEND Internal Medicine Geriatric Medicine
PROC: 30233N1 Transfusion of Nonautologous Red Blood Cells into Peripheral Vein, Percutaneous Approach (ICD-10-PCS; principal; 2023-08-24)
DX: T81.41XA Infection following a procedure, superficial incisional surgical site, initial encounter (principal); R65.21 Severe sepsis with septic shock; A41.89 Other specified sepsis; L76.32 Postprocedural hematoma of skin and subcutaneous tissue following other procedure; L02.211 Cutaneous abscess of abdominal wall; E11.9 Type 2 diabetes mellitus without complications; D64.9 Anemia, unspecified; Z53.29 Procedure and treatment not carried out because of patient's decision for other reasons; E78.00 Pure hypercholesterolemia, unspecified; I10 Essential (primary) hypertension; E86.1 Hypovolemia; Z98.84 Bariatric surgery status; Z90.49 Acquired absence of other specified parts of digestive tract; Z83.3 Family history of diabetes mellitus; Z82.5 Family history of asthma and other chronic lower respiratory diseases; Z82.49 Family history of ischemic heart disease and other diseases of the circulatory system; Y84.8 Other medical procedures as the cause of abnormal reaction of the patient, or of later complication, without mention of misadventure at the time of the procedure; Y92.89 Other specified places as the place of occurrence of the external cause
CPT/HCPCS: 36415; 74177; 74178; 76705; 80048; 80053; 80202; 81001; 82550; 82565; 82962; 83036; 83605; 84484; 85025; 86850; 86900; 86901; 86920; 87040; 87076; 87077; 87186; 87205; 93005; 96361; 96365; 96368; 96375; 99291; G0378; J1815; J2405; J2543; J3490; P9047

== ENCOUNTER 2023-12-24 12:04 | Inpatient (IN) | payer OTHER ==
[~2023-12-24] VITALS: Ht 149.9 cm; Wt 68.0 kg
[~2023-12-24 12:04] MED LIST changes: +DOXY1CAP57 PO
[2023-12-24 13:32] LABS: Basophils # (auto) 0 10 ^3/uL (0-0.2); Basophils % (auto) 0.4 % (0.0-2.0); Eosinophils # (auto) 0.1 10 ^3/uL (0-0.8); Eosinophils % (auto) 1.7 % (0.0-7.0); Hematocrit 43.8 % (36.0-46.0); Hemoglobin 14.8 g/dL (12.2-16.2); Lymphocytes % (auto) 31.2 % (10.0-50.0); Mean Corpuscular Hemoglobin 32.9 pg (28.0-32.0); Mean Corpuscular Hgb Conc. 33.8 g/dL (32.0-36.0); Mean Corpuscular Volume 97.2 fL (80.0-100.0); Monocytes # (auto) 0.6 10 ^3/uL (0-1.3); Monocytes % (auto) 9.3 % (0.0-12.0); Neutrophils # (auto) 3.7 10 ^3/uL (1.6-8.6); Neutrophils % (auto) 57.4 % (37.0-80.0); Platelet Count (auto) 303 10^3/uL (140-450); Red Cell Distribution Width 12.7 % (11.8-14.3); White Blood Cell 6.4 10^3/uL (4.4-10.8)
[2023-12-24 13:41] LABS: Alanine Aminotransferase 28 U/L (7-40); Albumin 4.3 g/dL (3.2-4.8); Alkaline Phosphatase 90 U/L (46-116); Anion Gap 4 (5-15); Aspartate Aminotransferase 21 U/L (13-40); Bilirubin, Total 0.3 mg/dL (0.2-1.0); Blood Urea Nitrogen 9 mg/dL (9-23); Calcium 9.8 mg/dL (8.7-10.4); Carbon Dioxide 30 mmol/L (20-31); Chloride 104 mmol/L (98-107); Glucose 133 mg/dL (74-106); Potassium 3.7 mmol/L (3.5-5.1); Sodium 138 mmol/L (136-145); Total Protein 7.4 g/dL (5.7-8.2)
[2023-12-24] MEDS: ONDANSETRON HCL 4 MG/2 ML VIAL IV ONE (15:15)
[2023-12-24] MEDS: IOHEXOL 300 MG/ML 100ML BOTTLE IJ ONE (15:15)
[2023-12-24] MEDS: PANTOPRAZOLE 40 MG/10 ML VIAL INJ IV ONE (15:15)
[2023-12-24] MEDS: SODIUM CHLORIDE 0.9% 1,000 ML IV ONE (15:15)
[2023-12-24] MEDS: MORPHINE SULFATE 4 MG/ML SYR/VIAL IV ONE ×2 (15:16→20:20)
[2023-12-24 16:00] VITALS: PULSE 101; RESP 16; O2SAT 97
[2023-12-24 16:49] LABS: Urine Bacteria FEW /hpf (None Seen); Urine Blood Negative /uL (Negative); Urine Clarity Clear (Clear); Urine Color Light-Yellow (Yellow); Urine Protein, UAD Negative (Negative); Urine Specific Gravity 1.019 (1.001-1.035); Urine Urobilinogen Normal (Negative); Urine WBC 3 /hpf (0 - 5)
[2023-12-24] MEDS: VANCOMYCIN 1GM/200ML PREMIX 200 ML IV ONE (17:38)
[2023-12-24] MEDS ORDERED: DOCUSATE SOD 100 MG CAP PO PRN (20:45)
[2023-12-24] MEDS ORDERED: VANCOMYCIN PER PHARMACY 0 MG IV SCH (20:45)
[2023-12-24] MEDS ORDERED: HYDROcodone-ACET 5/325MG TAB PO PRN (20:45)
[2023-12-24] MEDS ORDERED: ATOR40TA52 PO (20:49)
[2023-12-24] MEDS ORDERED: EMPA1TAB3 PO (21:09)
[2023-12-24] MEDS ORDERED: GABA800T97 PO (21:09)
[2023-12-24] MEDS ORDERED: CLOP75TA70 PO (21:09)
[2023-12-24] MEDS ORDERED: TRAZ-181 PO (21:13)
[2023-12-24 21:29] LABS: INR 1.02 (0.9-1.15); Partial Thromboplastin Time 25.6 SEC (24.5-34.5); Prothrombin Time 10.8 sec (9.3-11.8)
[2023-12-24] MEDS ORDERED: DEXTROSE (50%) 50ML SYRG IV PRN (21:30)
[2023-12-24] MEDS ORDERED: PATIENTS OWN MEDICATION (Gabapentin 1 TAB) PO SCH (22:00)
[2023-12-24] MEDS: InsuLIN REG 1unit/0.01ml Soln (100units/ml) SC SCH (22:00)
[2023-12-24] MEDS: ACCU-CHEK COMFORT CURVE STRIP VI SCH (22:17)
[2023-12-24] MEDS: FUROSEMIDE 40 MG TAB PO SCH (22:28)
[2023-12-24] MEDS: GABAPENTIN 400 MG CAP PO SCH (22:28)
[2023-12-24] MEDS: CLINDAMYCIN 600MG IV 50 ML IV SCH (22:28)
[2023-12-24 23:00] VITALS: PULSE 98; RESP 18; O2SAT 98
[2023-12-25 04:28] LABS: Alanine Aminotransferase 26 U/L (7-40); Albumin 4.1 g/dL (3.2-4.8); Alkaline Phosphatase 90 U/L (46-116); Anion Gap 6 (5-15); Aspartate Aminotransferase 22 U/L (13-40); BUN/Creatinine Ratio 10.7 (10.0-20.0); Blood Urea Nitrogen 8 mg/dL (9-23); Calcium 8.9 mg/dL (8.7-10.4); Carbon Dioxide 27 mmol/L (20-31); Chloride 106 mmol/L (98-107); Glucose 157 mg/dL (74-106); Potassium 3.1 mmol/L (3.5-5.1); Sodium 139 mmol/L (136-145)
[2023-12-25 04:29] LABS: Bilirubin, Total 0.3 mg/dL (0.2-1.0); Total Protein 6.8 g/dL (5.7-8.2)
[2023-12-25 04:30] LABS: Basophils # (auto) 0 10 ^3/uL (0-0.2); Basophils % (auto) 0.3 % (0.0-2.0); Eosinophils # (auto) 0.1 10 ^3/uL (0-0.8); Eosinophils % (auto) 1.7 % (0.0-7.0); Hematocrit 41.2 % (36.0-46.0); Hemoglobin 14.2 g/dL (12.2-16.2); Lymphocytes # (auto) 1.9 10 ^3/uL (0.4-5.4); Lymphocytes % (auto) 29.2 % (10.0-50.0); Mean Corpuscular Hemoglobin 33.7 pg (28.0-32.0); Mean Corpuscular Hgb Conc. 34.3 g/dL (32.0-36.0); Monocytes # (auto) 0.6 10 ^3/uL (0-1.3); Monocytes % (auto) 8.7 % (0.0-12.0); Neutrophils # (auto) 3.8 10 ^3/uL (1.6-8.6); Neutrophils % (auto) 60.1 % (37.0-80.0); Nucleated Red Blood Cells % 0.1 %; Platelet Count (auto) 273 10^3/uL (140-450); Red Blood Cells 4.21 10^6/uL (4.0-5.20); Red Cell Distribution Width 13.1 % (11.8-14.3); White Blood Cell 6.4 10^3/uL (4.4-10.8)
[2023-12-25 06:39] VITALS: BP 117/69; PULSE 98; RESP 16; TEMP 97.9; O2SAT 93
[2023-12-25] MEDS: VANCOMYCIN 750mg/150ml 150 ML IV SCH (06:59)
[2023-12-25] MEDS: InsuLIN REG 1unit/0.01ml Soln (100units/ml) SC SCH (07:07)
[2023-12-25 07:33] VITALS: PULSE 94; RESP 14; O2SAT 99
[2023-12-25] MEDS: PANTOPRAZOLE 40 MG TAB PO SCH (09:48)
[2023-12-25] MEDS: CLOPIDOGREL BISULFATE 75 MG TAB PO SCH (09:48)
[2023-12-25] MEDS ORDERED: PATIENTS OWN MEDICATION (Empagliflozin (Jardiance) 1 TAB) PO SCH (10:00)
[2023-12-25] MEDS ORDERED: INSULIN LANTUS (GLARGINE) 1 /0.01ml (100units/ml) SC SCH (10:00)
[2023-12-25] MEDS: INSULIN LANTUS (GLARGINE) 1 /0.01ml (100units/ml) SC SCH (10:34)
[2023-12-25] MEDS: ASPirin-EC 81 mg tab PO SCH (10:37)
[2023-12-25] MEDS: EMPAGLIFLOZIN 10 MG TAB PO SCH (10:37)
[2023-12-25] MEDS: ONDANSETRON HCL 4 MG/2 ML VIAL IV PRN (11:00)
[2023-12-25] MEDS: MORPHINE SULFATE INJ 2 MG/ml SYRG IV PRN (11:01)
[2023-12-25] MEDS ORDERED: levETIRAcetam 500 MG TAB PO SCH (12:30)
[2023-12-25] MEDS ORDERED: TOPIRAMATE 25 MG TAB PO SCH (12:30)
[2023-12-25 13:50] VITALS: BP 127/72; PULSE 90; RESP 17; TEMP 98; O2SAT 99
[2023-12-25] MEDS: traMADol HCL 50 MG TAB PO SCH (17:15)
[2023-12-25 21:49] VITALS: BP 127/78; PULSE 107; RESP 18; TEMP 98; O2SAT 92
[2023-12-25] MEDS ORDERED: ALBUAER3 IN (22:36)
[2023-12-25] MEDS ORDERED: INSU300I5 SC (22:36)
[2023-12-25] MEDS ORDERED: SEMA4INJ SC (22:36)
[2023-12-25] MEDS ORDERED: ARTISOL13 EACHEYE (22:36)
[2023-12-25] MEDS ORDERED: INSU100I4 SC (22:36)
[2023-12-25] MEDS ORDERED: TRAM50TA2 PO (22:36)
[2023-12-25] MEDS ORDERED: LATA0.008 OP (22:36)
[2023-12-25] MEDS ORDERED: UMEC1INH IN (22:36)
[2023-12-25] MEDS ORDERED: HYDR50TA69 PO (22:36)
[2023-12-25] MEDS: ATORVASTATIN 20 MG TAB PO SCH (23:02)
[2023-12-26] VITALS (9 sets, daily range): BP systolic 125–133; BP diastolic 73–84; PULSE 88–103; RESP 16–20; TEMP 97.6–98.2; O2SAT 92–98
[2023-12-26] MEDS: MELATONIN 5 MG TAB PO ONE (01:05)
[2023-12-26 05:31] LABS: Chloride 101 mmol/L (98-107); Potassium 3.4 mmol/L (3.5-5.1); Sodium 139 mmol/L (136-145)
[2023-12-26 05:32] LABS: Anion Gap 7 (5-15); Calcium 9.9 mg/dL (8.7-10.4); Carbon Dioxide 31 mmol/L (20-31)
[2023-12-26 05:37] LABS: BUN/Creatinine Ratio 16.7 (10.0-20.0); Blood Urea Nitrogen 16 mg/dL (9-23); Glucose 150 mg/dL (74-106)
[2023-12-26] MEDS: ACETAMINOPHEN 325 MG TAB PO PRN (09:10)
[2023-12-26] MEDS: VANCOMYCIN 750mg/150ml 150 ML IV SCH (09:11)
[2023-12-26] MEDS: ONDANSETRON HCL 4 MG/2 ML VIAL IV ONE (17:35)
[2023-12-27] VITALS (10 sets, daily range): BP systolic 119–137; BP diastolic 67–78; PULSE 91–102; RESP 14–18; TEMP 97.9–99.3; O2SAT 90–99
[2023-12-27 08:11] LABS: Basophils # (auto) 0 10 ^3/uL (0-0.2); Basophils % (auto) 0.4 % (0.0-2.0); Eosinophils # (auto) 0.2 10 ^3/uL (0-0.8); Hematocrit 40.9 % (36.0-46.0); Hemoglobin 13.6 g/dL (12.2-16.2); Lymphocytes # (auto) 2.3 10 ^3/uL (0.4-5.4); Lymphocytes % (auto) 41.9 % (10.0-50.0); Mean Corpuscular Hemoglobin 32.3 pg (28.0-32.0); Mean Corpuscular Hgb Conc. 33.2 g/dL (32.0-36.0); Mean Corpuscular Volume 97.4 fL (80.0-100.0); Monocytes # (auto) 0.6 10 ^3/uL (0-1.3); Monocytes % (auto) 10.5 % (0.0-12.0); Neutrophils # (auto) 2.4 10 ^3/uL (1.6-8.6); Neutrophils % (auto) 44.2 % (37.0-80.0); Nucleated Red Blood Cells % 0.1 %; Platelet Count (auto) 293 10^3/uL (140-450); Red Cell Distribution Width 13.1 % (11.8-14.3); White Blood Cell 5.5 10^3/uL (4.4-10.8)
[2023-12-27 08:30] LABS: Anion Gap 7 (5-15); Carbon Dioxide 33 mmol/L (20-31); Chloride 101 mmol/L (98-107); Potassium 3.9 mmol/L (3.5-5.1); Sodium 141 mmol/L (136-145)
[2023-12-27 08:32] LABS: Calcium 9.7 mg/dL (8.7-10.4)
[2023-12-27 08:36] LABS: BUN/Creatinine Ratio 19.3 (10.0-20.0); Blood Urea Nitrogen 16 mg/dL (9-23); Glucose 87 mg/dL (74-106)
[2023-12-27] MEDS: IPRATROPIUM BROM 0.5 MG/2.5ML INH SOL NEB PRN (12:10)
[2023-12-27] MEDS: ALBUTEROL SULF 2.5 MG/0.5ML(0.5%) NEB SOLN NEB PRN (12:10)
[2023-12-27] MEDS ORDERED: MAALOX PLUS or MAALOX 30 ML PO PRN (16:30)
[2023-12-27] MEDS: ONDANSETRON HCL 4 MG/2 ML VIAL IV ONE (17:04)
[2023-12-28] VITALS (12 sets, daily range): BP systolic 100–141; BP diastolic 65–82; PULSE 84–106; RESP 12–18; TEMP 97.4–98.8; O2SAT 91–100
[2023-12-28] MEDS: LIDOCAINE 1% HCL (LOCAL ANESTH.) INJ 20ML MDV ONE (10:08)
[2023-12-28] MEDS: BUPIVACAINE 0.5% P/F INJ 10 ML VIAL ONE (10:08)
[2023-12-28] MEDS ORDERED: KETAMINE 50mg/ML 1ml syringe ONE (10:10)
[2023-12-28] MEDS ORDERED: PROPOFOL 10 MG/ML 20 ML IV ONE (10:10)
[2023-12-28] MEDS ORDERED: KETOROLAC TROMETH 30 MG/ML 1ML VIAL ONE (11:52)
[2023-12-29] VITALS (9 sets, daily range): BP systolic 123–138; BP diastolic 71–76; PULSE 82–92; RESP 18–20; TEMP 97.9–98.5; O2SAT 94–99
[2023-12-29] MEDS ORDERED: CLIN-203 PO (10:42)
[2023-12-29] MEDS ORDERED: FAMO20TA10 PO (10:42)
[2023-12-29] MEDS ORDERED: IBU600T PO (10:42)
[2023-12-29] MEDS: ONDANSETRON ODT 4 MG TAB PO ONE (11:23)
== END 2023-12-29 14:30 | disposition home or self-care (01) | DRG 364 ==
LOC: ER 12:04 → OVERFLOW 20:31 → WEST WING 12-25 21:40
PROVIDERS: ADMIT Nurse Practitioner Family; ATTEND Student in an Organized Health Care Education/Training Program
PROC: 0W9F0ZZ Drainage of Abdominal Wall, Open Approach (ICD-10-PCS; principal; 2023-12-28 10:10)
DX: L02.211 Cutaneous abscess of abdominal wall (principal); I11.0 Hypertensive heart disease with heart failure; I50.9 Heart failure, unspecified; E11.9 Type 2 diabetes mellitus without complications; E78.5 Hyperlipidemia, unspecified; F41.9 Anxiety disorder, unspecified; J44.89 Other specified chronic obstructive pulmonary disease; G89.29 Other chronic pain; L03.311 Cellulitis of abdominal wall; Z90.49 Acquired absence of other specified parts of digestive tract; Z86.73 Personal history of transient ischemic attack (TIA), and cerebral infarction without residual deficits
CPT/HCPCS: 36415; 74177; 80048; 80053; 80202; 81001; 82962; 84484; 85025; 85610; 85730; 87070; 87075; 87077; 87186; 87205; 94640; 99291; G0378; J1815; J1885; J2003; J2405; J2470; J2704; J3490; Q0162

== ENCOUNTER 2024-05-04 09:26 | Inpatient (IN) | payer MEDICAID, OTHER ==
[~2024-05-04] VITALS: Ht 149.9 cm; Wt 68.3 kg
[~2024-05-04 09:26] MED LIST changes: -ACET500T58 PO; +ALBUAER3 IN; -ALPR2TAB2 PO; +ARTISOL13 EACHEYE; -ATOR10TA52 PO; +ATOR40TA52 PO; -BACDST PO; -CITA-77 PO; +CLIN-203 PO; +CLOP75TA70 PO; -DOCU100T15 PO; -DOXY1CAP57 PO; -EMPA1TAB PO; +EMPA1TAB3 PO; -ENAL1TAB48 PO; +FAMO20TA10 PO; -GABA-339 PO; +GABA800T97 PO; -HYDR25TA4 PO; +HYDR50TA69 PO; +IBU600T PO; -IBUP-1174 PO; -IBUP-1456 PO; -INSLANTI; +INSU100I4 SC; +INSU300I5 SC; +LATA0.008 OP; -LIRA18IN2 SUBCUT; -LUBI8CAP4 PO; -METF-370 PO; +SEMA4INJ SC; -SIME80CH49 PO; -TEMA30CA PO; +TRAM50TA2 PO; +TRAZ-181 PO; -TRAZ-228 PO; +UMEC1INH IN; -ZOFR4T PO
--- NOTE | 2024-05-04 09:31 | ECG ---
[facility] Test Date: 2024-05-04 Test Time: 09:28:02 Pat Name: TYESHA MUELLER Department: ER Room: [address] [place] [address] Gender: F Hearing Therapist: NAOMI : 1970 Requested By: ANGELO HEARN Order Number: [id number] Reading MD: Hao Mohan Measurements Intervals [place] Rate: 104 P: 53 NE: 131 QRS: 98 QRSD: 137 T: -21 QT: 364 QTc: 479 Interpretive Statements Sinus tachycardia Ventricular premature complex Aberrant complex Left bundle branch block Electronically Signed On 05-09-2024 17:10:55 PST by Hao Mohan Please click the below link to view image of tracing.
[2024-05-04 09:45] LABS: Basophils # (auto) 0 10 ^3/uL (0-0.2); Basophils % (auto) 0.9 % (0.0-2.0); Eosinophils # (auto) 0.1 10 ^3/uL (0-0.8); Eosinophils % (auto) 1.2 % (0.0-7.0); Hematocrit 41.8 % (36.0-46.0); Hemoglobin 13.9 g/dL (12.2-16.2); Lymphocytes # (auto) 1.8 10 ^3/uL (0.4-5.4); Lymphocytes % (auto) 36.3 % (10.0-50.0); Mean Corpuscular Hemoglobin 32.4 pg (28.0-32.0); Mean Corpuscular Hgb Conc. 33.3 g/dL (32.0-36.0); Mean Corpuscular Volume 97.3 fL (80.0-100.0); Monocytes # (auto) 0.5 10 ^3/uL (0-1.3); Monocytes % (auto) 10.1 % (0.0-12.0); Neutrophils # (auto) 2.5 10 ^3/uL (1.6-8.6); Neutrophils % (auto) 51.5 % (37.0-80.0); Nucleated Red Blood Cells % 0.2 %; Platelet Count (auto) 291 10^3/uL (140-450); Red Blood Cells 4.29 10^6/uL (4.0-5.20); Red Cell Distribution Width 13.5 % (11.8-14.3); White Blood Cell 4.9 10^3/uL (4.4-10.8)
[2024-05-04 09:53] VITALS: RESP 18; O2SAT 98
[2024-05-04 09:53] LABS: Chloride 105 mmol/L (98-107); Potassium 3.8 mmol/L (3.5-5.1); Sodium 142 mmol/L (136-145)
--- NOTE | 2024-05-04 09:53 | ED.PDOC ---
HPI Comments 53 year old female presents to the ED with a chief complaint of chest pain onset today (05/04/24). Patient was sitting in main lobby, came to [facility] to speak with medical records when she began experiencing chest pain, code ASSIST was called. Patient states she is experiencing chest pain rates 10/10 described as sharp pain, as well as anxiety. BP is 176/98, BS 247. PMHx TIA, DM, anxiety, asthma, HTN, depression, HLD. Denies headache, dizziness, blurry vision, nausea, vomitin g, diarrhea, abdominal pain. No other symptos or modifying factors present at this time. Chief Complaint: Chest Pain Time Seen by MD: 09:29 Primary Care Provider: DASHAWN Reviewed Notes: Medications, Allergies Allergies: Coded Allergies: NO KNOWN ALLERGIES (Unverified , 03/24/11) Home Meds Active Scripts Famotidine (PEPCID TABLET) 20 Mg Tb, 1 TAB PO BID PRN for 30 Days, #60 TAB 3 Refills Prov:HILARIO REAL MD 12/29/23 Ibuprofen Micronized (MOTRIN TABLET) 600 Mg Tb, 600 MG PO TID PRN for 7 Days, #21 TAB *Black box warning-NSAIDS can increase risk of KS & hypertension, GI irritation, ulceration, bleed, perferation. Do not use post cardiac surgery. Use short duration/lowest effective dose. Prov:HILARIO REAL MD 12/29/23 Clindamycin HCl (Clindamycin Hydrochloride) 300 Mg Cap, 300 MG PO QID for 7 Days, #28 CAP Prov:HILARIO REAL MD 12/29/23 Reported Medications Hydroxyzine Hcl (Hydroxyzine Hcl) 50 Mg Tab, 50 MG PO HS, TAB 12/25/23 Umeclidinium [place] (Incruse Ellipta) 62.5 Mcg/Inh Inh, 1 PUFF IN PRN for SHORTNESS OF BREATH, INHALER 12/25/23 Albuterol Sulfate (VENTOLIN MDI) 90 Mcg Ih, 2 PUFF IN PRN for SHORTNESS OF BREATH, INH 12/25/23 Artificial Tear Solution (ARTIFICIAL TEARS) Tears Blaire, 1 DROP EACHEYE QID for DRY EYES, ML 12/25/23 Latanoprost (LATANOPROST) 0.005 % Blaire, 0.005 % OP HS, ML 12/25/23 Tramadol Hcl (Tramadol Hcl) 50 Mg Tab, 1 TAB PO TID 12/25/23 Semaglutide (Ozempic) 4 Mg/3 Ml Inj, 0.1 UNIT SC QWEEKLY 12/25/23 Insulin Glargine (Insulin Glargine Solostar) 300 Unit/Ml Inj, 40 UNIT SC QAM 12/25/23 Insulin Lispro (Humalog Kwikpen) 100 Unit/Ml Inj, 8-12 UNITS SC TIDBM 12/25/23 Trazodone HCl (Trazodone Hydrochloride) 50 Mg Tab, 50 MG PO HS, TAB 12/24/23 Gabapentin (Gabapentin) 800 Mg Tab, 1 TAB PO QID 12/24/23 Empagliflozin (Jardiance) 25 Mg Tab, 1 TAB PO DAILY 12/24/23 Clopidogrel Bisulfate (CLOPIDOGREL) 75 Mg Tab, 1 TAB PO DAILY 12/24/23 Atorvastatin Calcium (ATORVASTATIN CALCIUM) 40 Mg Tab, 1 TAB PO HS 12/24/23 Furosemide (Furosemide) 40 Mg Tab, 1 TAB PO BID 12/27/21 Lisinopril (Lisinopril) 5 Mg Tab, 1 TAB PO DAILY 12/27/21 Potassium Chloride (K-Tab) 20 Meq Tab, 1 TAB PO DAILY 12/27/21 Pantoprazole Sodium Sesquihydr (Pantoprazole Sodium) 40 Mg Tab, 1 TAB PO DAILY 12/27/21 Meloxicam (Meloxicam) 15 Mg Tab, 7.5 MG PO DAILY, #30 TAB 07/01/16 Aspirin (ASPIRIN 81) 81 Mg Tab, 81 MG PO DAILY, TAB 11/10/14 Information Source: Patient Mode of Arrival: Ambulatory Severity: Moderate Timing: Minutes Duration: Since onset Prehospital treatment: None Location: Chest (L) Radiation: No Radiation Quality: Sharp Onset: At Rest Cardiac Risk Factors: Hyperlipidemia, HTN, Diabetes PE Risk Factors: None History of: Similar pain in past Modifying Factors: Nothing Past Medical History PAST MEDICAL HISTORY: Anxiety, Arthritis, Depression, DM, High Lipids, HTN, TIA Surgical History: Cholecystectomy, CROSS TIE TURNER History: No Pertinent CROSS TIE TURNER History Family History Family History: Unknown Social History Smoker: Non-Smoker Alcohol: Occasionally Drugs: Denies Drug Use Lives In: Home Constitutional: denies: chills, diaphoresis, fatigue, fever, malaise, sweats, weakness, others EENTM: denies: blurred vision, double vision, ear bleeding, ear discharge, ear drainage, ear pain, ear ringing, eye pain, eye redness, hearing loss, mouth pain, mouth swelling, nasal discharge, nose bleeding, nose congestion, nose pain, photophobia, tearing, throat pain, throat swelling, voice changes, others Respiratory: denies: cough, hemoptysis, orthopnea, SOB at rest, shortness of breath, SOB with excertion, stridor, wheezing, others Cardiovascular: reports: chest pain; denies: dizzy spells, diaphoresis, Dyspnea on exertion, edema, irregular heart beat, left arm pain, lightheadedness, palpitations, PND, syncope, others Gastrointestinal: denies: abdomen distended, abdominal pain, blood streaked bowels, constipated, diarrhea, dysphagia, difficulty swallowing, hematemesis, melena, nausea, poor appetite, poor fluid intake, rectal bleeding, rectal pain, vomiting, others Genitourinary: denies: abnormal vagina bleeding, burning, dyspareunia, dysuria, flank pain, frequency, hematuria, incontinence, pain, , vagina discharge, urgency, others Neurological: denies: dizziness, fainting, headache, left sided numbness, left sided weakness, numbness, paresthesia, pre-existing deficit, right sided numbness, right sided weakness, seizure, speech problems, tingling, tremors, weakness, others Musculoskeletal: denies: back pain, gout, joint pain, joint swelling, muscle pain, muscle stiffness, neck pain, others Integumetry: denies: bruises, change in color, change in hair/nails, dryness, laceration, lesions, lumps, rash, wounds, others Allergic/Immunocompromised: denies: Difficulty Healing, Frequent Infections, Hives, Itching, others Hematologic/Lymphatic: denies: anemia, blood clots, easy bleeding, easy bruising, swollen glands, others Endocrine: denies: excessive hunger, excessive sweating, excessive thirst, excessive urination, flushing, intolerance to cold, intolerance to heat, unexplained weight gain, unexplained weight loss, others Psychiatric: reports: anxiety; denies: bipolar disorder, depression, hopeless, panic disorder, schizophrenia, sleepless, suicidal, others All Other Systems: Reviewed and Negative Physical Exam General Appearance: Moderate Distress HEENT: Normal ENT Inspection, Pharynx Normal, TMs Normal Neck: Full Range of Motion, Non-Tender, Normal, Normal Inspection Respiratory: Chest Non-Tender, Lungs Clear, No Accessory Muscle Use, No Respiratory Distress, Normal Breath Sounds Cardiovascular: No Edema, No JVD, No Murmur, No Gallop, Normal Peripheral Pulses, Regular Rate/Rhythm Breast Exam: Deferred Gastrointestinal: No Organomegaly, Non Tender, No Pulsatile Mass, Normal Bowel Sounds, Soft Genitalia: Deferred Pelvic: Deferred Rectal: Deferred Extremities: No calf tenderness, Normal capillary refill, Normal inspection, Normal range of motion, Non-tender, No pedal edema Musculoskeletal : Apperance: Normal Neurologic: Alert, No Motor Deficits, No Sensory Deficits Cerebellar Function: NOT DONE Reflexes: NOT DONE Skin: Normal Color Peripheral Pulses: 3+ Radial (R), 3+ Radial (L) Lymphatic: No Adenopathy Was a procedure done? Was a procedure done?: No CP Differential Dx Differential Diagnosis: A-fib, A-Flutter, Angina, Anxiety / Panic Attack, Atrial Dysrhythmia, Electrolyte Disorder X-Ray, Labs, Meds, VS Vital Signs Date Time Temp Pulse Resp B/P (MAP) Pulse Ox O2 Delivery O2 Flow Rate FiO2 05/04/24 10:25 94 05/04/24 09:53 18 98 Room Air* 0 21 05/04/24 09:28 104 05/04/24 09:27 98.4 105 24 176/84 (114) 100 Lab Test 05/04/24 09:32 Range/Units White Blood Count 4.9 4.4-10.8 10^3/uL Red Blood Count 4.29 4.0-5.20 10^6/uL Hemoglobin 13.9 12.2-16.2 g/dL Hematocrit 41.8 36.0-46.0 % Mean Corpuscular Volume 97.3 80.0-100.0 fL Mean Corpuscular Hemoglobin 32.4 H 28.0-32.0 pg Mean Corpuscular Hemoglobin Concent 33.3 32.0-36.0 g/dL Red Cell Distribution Width 13.5 11.8-14.3 % Platelet Count 291 140-450 10^3/uL Mean Platelet Volume 8.1 6.9-10.8 fL Neutrophils (%) (Auto) 51.5 37.0-80.0 % Lymphocytes (%) (Auto) 36.3 10.0-50.0 % Monocytes (%) (Auto) 10.1 0.0-12.0 % Eosinophils (%) (Auto) 1.2 0.0-7.0 % Basophils (%) (Auto) 0.9 0.0-2.0 % Neutrophils # (Auto) 2.5 1.6-8.6 10 ^3/uL Lymphocytes # (Auto) 1.8 0.4-5.4 10 ^3/uL Monocytes # (Auto) 0.5 0-1.3 10 ^3/uL Eosinophils # (Auto) 0.1 0-0.8 10 ^3/uL Basophils # (Auto) 0 0-0.2 10 ^3/uL Nucleated Red Blood Cells 0.2 % Sodium Level 142 136-145 mmol/L Potassium Level 3.8 3.5-5.1 mmol/L Chloride Level 105 98-107 mmol/L Carbon Dioxide Level 24 20-31 mmol/L Anion Gap 13 5-15 Blood Urea Nitrogen 15 9-23 mg/dL Creatinine 1.12 H 0.550-1.02 mg/dL Glomerular Filtration Rate Calc 59 >90 mL/min BUN/Creatinine Ratio 13.4 10.0-20.0 Serum Glucose 235 H 74-106 mg/dL Calcium Level 9.3 8.7-10.4 mg/dL Troponin I High Sensitivity < 3 L </=34 ng/L Patient alert. Complaining of chest pain. Has cardiac risk factors. Vitals stable. Blood sugar elevated. Establish intravenous access. Was given fluids. WBC within normal limits. Blood pressure elevated. EKG does show left bundle branch block. Explained to the patient. Continue monitoring. Time of 1ST Reevaluation: 09:59 Reevaluation 1ST: Unchanged Patient Education/Counseling: Diagnosis, Treatment, Prognosis Family Education/Counseling: No Family Present Additional Information The following tests were ordered, and results were reviewed by me: EKG -x2, TROP, CBC, UA, BMP I discussed treatment and results with medical personnel and: patient Departure 1 Departure Time of Disposition: 12:26 Impression: Primary Impression: Chest pain of unknown etiology Additional Impressions: Hypertension Qualified Codes: I10 - Essential (primary) hypertension ST segment abnormality Uncontrolled diabetes mellitus Qualified Codes: E13.65 - Other specified diabetes mellitus with hyperglycemia Disposition: ADMITTED INPATIENT Admit to: Med Surg Condition: Guarded Critical Care Note Critical Care Time?: Yes (45 min-critical care time only) Critical care comment: Continues to have chest pain. Stability Stability form required: No Heart Score Heart Score: Heart Score Response (Comments) Value History Slightly Suspicious 0 EKG Normal 0 Age 45-64 1 Risk Factors >3 or Hx ASHD 2 Troponin Normal limit 0 Total 3 I personally scribed for ANGELO HEARN MD ([email or web address]) on 05/04/24 at 09:53. Electronically submitted by Ritu Thakur ([email or web address]). I personally scribed for ANGELO HEARN MD ([email or web address]) on 05/04/24 at 11:02. Electronically submitted by Ritu Thakur ([email or web address]). ANGELO HEARN MD May 04, 2024 09:53
[2024-05-04 09:54] LABS: Anion Gap 13 (5-15); Calcium 9.3 mg/dL (8.7-10.4); Carbon Dioxide 24 mmol/L (20-31)
[2024-05-04 09:59] LABS: BUN/Creatinine Ratio 13.4 (10.0-20.0); Blood Urea Nitrogen 15 mg/dL (9-23)
[2024-05-04 10:00] LABS: Glucose 235 mg/dL (74-106)
--- NOTE | 2024-05-04 10:27 | ECG ---
[facility] Test Date: 2024-05-04 Test Time: 10:25:36 Pat Name: TYESHA MUELLER Department: ER Room: [address] [place] [address] Gender: F Pastry Cook: LEIDA : 1970 Requested By: ANGELO HEARN Order Number: [id number] Reading MD: Hao Mohan Measurements Intervals [place] Rate: 94 P: 68 TN: 137 QRS: 115 QRSD: 138 T: -20 QT: 384 QTc: 481 Interpretive Statements Sinus rhythm Consider left ventricular hypertrophy Abnormal T, consider ischemia, diffuse leads ST elevation, consider lateral injury Electronically Signed On 05-09-2024 17:11:54 PST by Hao Mohan Please click the below link to view image of tracing.
[2024-05-04 12:54] LABS: Urine Bacteria MOD /hpf (None Seen); Urine Blood Negative /uL (Negative); Urine Clarity Clear (Clear); Urine Color Light-Yellow (Yellow); Urine Hyaline Cast MOD /lpf (0 - 2); Urine Mucus FEW (None Seen); Urine Protein, UAD Negative (Negative); Urine Specific Gravity 1.022 (1.001-1.035); Urine Squamous Epithelial Cell FEW /hpf (<5); Urine Urobilinogen Normal (Negative); Urine WBC 1 /HPF (0-5); Urine pH 5.5 (5.0-9.0)
[2024-05-04] MEDS ORDERED: DEXTROSE (50%) 50ML SYRG IV PRN (14:30)
[2024-05-04] MEDS ORDERED: NITROGLYCERIN 0.4 MG SL TAB SL PRN (14:30)
[2024-05-04] MEDS ORDERED: MORPHINE SULFATE INJ 2 MG/ml SYRG IV PRN (14:30)
[2024-05-04] MEDS ORDERED: MORPHINE SULFATE 4 MG/ML SYR/VIAL IV PRN (14:30)
[2024-05-04] MEDS ORDERED: IPRATROPIUM BROM 0.5 MG/2.5ML INH SOL NEB PRN (15:00)
[2024-05-04] MEDS ORDERED: ALBUTEROL SULF 2.5 MG/0.5ML(0.5%) NEB SOLN NEB PRN (15:00)
--- NOTE | 2024-05-04 15:08 | DVHHP2 ---
History of Present Illness Reason for Visit: Chest pain History of Present Illness Steffi Moon is a 53-year-old female with past medical history of hypertension, hyperlipidemia, diabetes type 2, asthma, anxiety, arthritis, hiatal hernia, osteoarthritis, CVA, TIA, depression, cholecystectomy, bilateral cataract removal, x4, gastric sleeve, panniculectomy on August 08, 2023, and abdominal I&D who presents to the ED with shortness of breath and chest pain that is radiating to her right jaw tingling sharp and pressure-like 8/10. Patient also reports that she has had nausea vomiting and diarrhea that has been brown now yellowish in color. Patient denies any recent trauma or injury, recent ingestion of spoiled food, fever, chills, lightheadedness, weakness, dizziness, abdominal pain, wheezing, urinary symptoms, or vomiting blood. Patient reports that she was obtaining medical records when the suddenly came about today. Cardiovascular: HTN, hyperipidemia Pulmonary: Asthma GI: Other (Hiatal hernia) Psych: Anxiety Endocrine: Diabetes Past Medical History Arthritis Osteoarthritis CVA TIA Depression Past Surgical History: Cholecystectomy, Cataract Removal, , Other (Gastric sleeve, gastric sleeve, and panniculectomy) Family History: None Smoke: No ALCOHOL: occassional Drugs: None Lives: with Family Domestic Violence: Neg Review of Systems ENT: Other (Right jaw pain and tingling) Respiratory: Shortness of breath Cardiovascular: Chest Pain Gastrointestinal: Nausea, Vomiting, Diarrhea Allergies: Coded Allergies: NO KNOWN ALLERGIES (Unverified , 03/24/11) Medications Current Medications Medications Dose Ordered Sig/Kevin Route Start Time Stop Time Status Last Admin Dose Admin Diagnostic Test (Pha) 1 strip ACHS 05/04/24 17:00 UNV Insulin Human Regular ACHS SC 05/04/24 17:00 UNV Dextrose 50 ml UD PRN IV 05/04/24 14:30 UNV Morphine Sulfate 2 mg Q30MP PRN IV 05/04/24 14:30 UNV Ondansetron HCl 4 mg Q4HP PRN IV 05/04/24 14:30 UNV Nitroglycerin 0.4 mg Q5MINP PRN SL 05/04/24 14:30 UNV Morphine Sulfate 2 mg Q30M PRN IV 05/04/24 14:30 UNV Sodium Chloride 1,000 ml @ 100 mls/hr Q10H IV 05/04/24 15:00 UNV Aspirin 81 mg DAILY PO 05/05/24 10:00 UNV Clopidogrel Bisulfate 75 mg DAILY PO 05/05/24 10:00 UNV Furosemide 40 mg BID PO 05/04/24 22:00 UNV Latanoprost 0.005 drop HS OP 05/04/24 22:00 UNV Lisinopril 5 mg DAILY PO 05/05/24 10:00 UNV Pantoprazole Sodium 40 mg DAILY PO 05/05/24 10:00 UNV Trazodone HCl 50 mg HS PO 05/04/24 22:00 UNV Patient Own Medication 1 drop QID EACHEYE 05/04/24 18:00 UNV Patient Own Medication 1 tab HS PO 05/04/24 22:00 UNV Patient Own Medication 1 tab DAILY PO 05/05/24 10:00 UNV Patient Own Medication 1 tab QID PO 05/04/24 18:00 UNV Patient Own Medication 50 mg HS PO 05/04/24 22:00 UNV Patient Own Medication 7.5 mg DAILY PO 05/05/24 10:00 UNV Patient Own Medication 1 tab DAILY PO 05/05/24 10:00 UNV Exam Vital Signs Vital Signs Date Time Temp Pulse Resp B/P (MAP) Pulse Ox O2 Delivery O2 Flow Rate FiO2 05/04/24 12:46 98.5 94 17 164/70 (101) 99 98.5 05/04/24 09:53 Room Air* 0 21 General Appearance: Alert, Oriented X3, Cooperative, No acute distress HEENT: Atraumatic, PERRLA, EOMI, Mucous membr. moist/pink Respiratory: Clear to auscultation, Normal air movement Cardiovascular: Normal S1, Normal S2, No murmurs Abdominal: Normal bowel sounds, Soft, No tenderness, No hepatospenomegaly, No masses Extremities: No clubbing, No cyanosis, No edema, Normal pulses, No tenderness/swelling Skin: No rashes, No breakdown, No significant lesion Neuro: Normal speech, Strength at 5/5 X4 ext, Normal tone, Sensation intact Psych/Mental Status: Mental status NL, Mood NL Labs/Xrays Labs Test 05/04/24 09:48 05/04/24 09:32 Range/Units Urine Color Light-yellow Yellow Urine Clarity Clear Clear Urine pH 5.5 5.0-9.0 Urine Specific Saline 1.022 1.001-1.035 Urine Protein Negative Negative Urine Ketones Negative Negative Urine Blood Negative Negative /uL Urine Nitrite Negative Negative Urine Bilirubin Negative Negative Urine Urobilinogen Normal Negative mg/dL Urine Leukocyte Esterase Negative Negative /uL Urine RBC <1 0 - 4 /hpf Urine Microscopic WBC 1 0-5 /HPF Urine Squamous Epithelial Cells Few <5 /hpf Urine Bacteria Mod H None Seen /hpf Urine Hyaline Casts Mod 0 - 2 /lpf Urine Mucus Few None Seen Urine Glucose Trace Normal mg/dL White Blood Count 4.9 4.4-10.8 10^3/uL Red Blood Count 4.29 4.0-5.20 10^6/uL Hemoglobin 13.9 12.2-16.2 g/dL Hematocrit 41.8 36.0-46.0 % Mean Corpuscular Volume 97.3 80.0-100.0 fL Mean Corpuscular Hemoglobin 32.4 H 28.0-32.0 pg Mean Corpuscular Hemoglobin Concent 33.3 32.0-36.0 g/dL Red Cell Distribution Width 13.5 11.8-14.3 % Platelet Count 291 140-450 10^3/uL Mean Platelet Volume 8.1 6.9-10.8 fL Neutrophils (%) (Auto) 51.5 37.0-80.0 % Lymphocytes (%) (Auto) 36.3 10.0-50.0 % Monocytes (%) (Auto) 10.1 0.0-12.0 % Eosinophils (%) (Auto) 1.2 0.0-7.0 % Basophils (%) (Auto) 0.9 0.0-2.0 % Neutrophils # (Auto) 2.5 1.6-8.6 10 ^3/uL Lymphocytes # (Auto) 1.8 0.4-5.4 10 ^3/uL Monocytes # (Auto) 0.5 0-1.3 10 ^3/uL Eosinophils # (Auto) 0.1 0-0.8 10 ^3/uL Basophils # (Auto) 0 0-0.2 10 ^3/uL Nucleated Red Blood Cells 0.2 % Sodium Level 142 136-145 mmol/L Potassium Level 3.8 3.5-5.1 mmol/L Chloride Level 105 98-107 mmol/L Carbon Dioxide Level 24 20-31 mmol/L Anion Gap 13 5-15 Blood Urea Nitrogen 15 9-23 mg/dL Creatinine 1.12 H 0.550-1.02 mg/dL Glomerular Filtration Rate Calc 59 >90 mL/min BUN/Creatinine Ratio 13.4 10.0-20.0 Serum Glucose 235 H 74-106 mg/dL Calcium Level 9.3 8.7-10.4 mg/dL Troponin I High Sensitivity < 3 L </=34 ng/L Assessment/Plan Assessment/Plan Assessment Chest pain tingling to the right jaw YAYO Diabetes type 2 uncontrolled History of hypertension History of hyperlipidemia History of asthma History of anxiety History of arthritis History of hiatal hernia History of osteoarthritis History of CVA no deficits History of TIA ?History of depression Plan Admit to tele ACS workup ACS protocol Echo ordered UA Troponin negative EKG noted IV fluids Hemoglobin A1c ISS and Accu-Cheks Chest x-ray ordered TSH ordered Lipid panel UDS Echo ordered Last echo on 12/27/2021 EF 55% Mag level Respiratory treatments Diet Antiemetics Pain management Home medications reconciled Plan discussed with: Patient, Spouse My Orders Orders - DARWIN QUIÑONES JUNK REMOVAL SPECIALIST Procedure Category Date Status Time Chest Xray 1 View XY 05/04/24 Logged 14:22 Thyroid Stimulating LAB 05/04/24 Logged Hormone 14:22 Lipid Panel LAB 05/04/24 Logged 14:22 Drug Screen LAB 05/04/24 Logged 14:22 Echo 2d Mode Cardiac US 05/04/24 Logged DOP 14:22 Glucose Blood PHA 05/04/24 Logged (Accu-Chek Comfort 17:00 Insulin R (Human) PHA 05/04/24 Logged (Insulin R) 17:00 Dextrose 50% Syringe PHA 05/04/24 Logged 14:30 Admit ADMIT 05/04/24 Transmitted 14:22 Code Status CODE 05/04/24 Transmitted 14:22 Vital Signs ESTRELLA 05/04/24 In Process 14:22 Ink Printer ESTRELLA 05/04/24 In Process 14:22 Cardiac DIET 05/04/24 Transmitted Diet-2gna,Lofat,Lochol Dinner Morphine Sulfate PHA 05/04/24 Logged Injection 14:30 Complete Blood Count LAB 05/05/24 Verified 04:00 Basic Metabolic Panel LAB 05/05/24 Verified 04:00 Magnesium LAB 05/05/24 Verified 04:00 Ondansetron Hcl PHA 05/04/24 Logged (Zofran) 14:30 Electrocardigram EKG 05/05/24 Logged 04:00 Alum & Mag PHA 05/04/24 Logged Hydrox-Simethicone 14:30 Troponin-I Hs LAB 05/04/24 Logged 14:22 Cardiac ESTRELLA 05/04/24 In Process Rehabilitation - Outpa Nitroglycerin PHA 05/04/24 Logged Sublingual (Ntrostat 14:30 Morphine Sulfate PHA 05/04/24 Logged Injection 14:30 Stat Ekg For Chest [facility] 05/04/24 In Process Pain 14:22 Notify Of Changes [facility] 05/04/24 In Process From Base 14:22 Machine Brush Maker For [facility] 05/04/24 In Process 24 Hours 14:22 Emergency Dysrhythmia [facility] 05/04/24 In Process Protocol 14:22 Rhythm Strips Once [facility] 05/04/24 In Process Every Shift 14:22 Oxygen By Nasal RT 05/04/24 Transmitted Cannula 14:22 Hemoglobin A1c LAB 05/04/24 In Process 14:51 Sodium Chloride 0.9% PHA 05/04/24 Logged 15:00 Magnesium LAB 05/04/24 Transmitted 14:52 Aspirin Enteric PHA 05/05/24 Logged Coated Tablet 10:00 Clopidogrel Bisulfate PHA 05/05/24 Logged (Plavix) 10:00 Furosemide Tablet PHA 05/04/24 Logged (Lasix Tablet) 22:00 Latanoprost (Xalatan) PHA 05/04/24 Logged 22:00 Lisinopril Tablet PHA 05/05/24 Logged (Zestril Tablet) 10:00 Pantoprazole Tablet PHA 05/05/24 Logged (Protonix Tablet) 10:00 Trazodone Hcl PHA 05/04/24 Logged (Desyrel) 22:00 (Nf) Artificial Tear PHA 05/04/24 Logged Solution (Artificia 18:00 (Nf) Atorvastatin PHA 05/04/24 Logged Calcium 22:00 (Nf) Empagliflozin PHA 05/05/24 Logged (Jardiance) 10:00 (Nf) Gabapentin PHA 05/04/24 Logged 18:00 (Nf) Hydroxyzine Hcl PHA 05/04/24 Logged 22:00 (Nf) Meloxicam PHA 05/05/24 Logged 10:00 (Nf) Potassium PHA 05/05/24 Logged Chloride (K-Tab) 10:00 Albuterol Medneb PHA 05/04/24 Verified (Ventolin Medneb) 15:00 Ipratropium Medneb PHA 05/04/24 Verified (Atrovent Medneb) 15:00 Budesonide PHA 05/04/24 Verified (Inhalation) 22:00 Date of Service: May 04, 2024 Billing Provider: DARWIN QUIÑONES Common Visit Codes: [id number] INP/OBS CARE (HIGH) DARWIN QUIÑONES May 04, 2024 15:08
--- NOTE | 2024-05-04 15:13 | DVH ---
CHEST RADIOGRAPH Indication: cp Technique: Single frontal view of the chest was obtained COMPARISON: EKG on DOS: 12/27/21, CHEST PORTABLE on DOS: 12/27/21, EKG on DOS: 12/27/21, CXRP on DOS: 12/27/21, EKG on DOS: 12/27/21 FINDINGS: Lines and Tubes: None Lungs: Clear Pleura: No effusion. No pneumothorax. Cardiomediastinal contours: Unremarkable Bones: Unremarkable IMPRESSION: No acute disease.
[2024-05-04 15:25] VITALS: BP 138/84; PULSE 98; RESP 20; O2SAT 99
[2024-05-04 15:25] LABS: Amphetamine Screen, Urine Neg (NEGATIVE); Barbiturate Scree,Urine Neg (NEGATIVE); Opiate Scree,Urine Neg (NEGATIVE); Phencyclidine Screen, Urine Neg (NEGATIVE)
[2024-05-04 15:26] LABS: Benzodiazephine Screen, Urine Neg (NEGATIVE); Cannabinoid Screen, Urine Neg (NEGATIVE); Cocaine Screen, Urine Neg (NEGATIVE)
[2024-05-04 15:32] LABS: LDL Cholesterol 20 mg/dL (< 100)
[2024-05-04 15:33] LABS: Cholesterol 126 mg/dL (< 200)
[2024-05-04 15:37] LABS: HDL Cholesterol 69 mg/dL (40-59); Triglycerides 265 mg/dL (< 150)
[2024-05-04] MEDS: MAALOX PLUS or MAALOX 30 ML PO ONE (15:59)
[2024-05-04] MEDS: SODIUM CHLORIDE 0.9% 1,000 ML IV SCH (16:36)
[2024-05-04] MEDS: POTASSIUM CHL 20 Meq TABLET PO ONE (17:08)
[2024-05-04] MEDS: InsuLIN REG 1unit/0.01ml Soln (100units/ml) SC SCH (17:08)
[2024-05-04] MEDS: ACCU-CHEK COMFORT CURVE STRIP VI SCH (17:08)
[2024-05-04] MEDS: ARTIFICIAL TEARS 15ml EACHEYE SCH (18:00)
[2024-05-04] MEDS: FUROSEMIDE 40 MG TAB PO SCH (18:13)
[2024-05-04] MEDS: GABAPENTIN 400 MG CAP PO SCH (18:13)
[2024-05-04 18:28] VITALS: O2SAT 98
[2024-05-04] MEDS: BUDESONIDE (INHALATION) 0.5 MG/2 ML NEB NEB SCH (18:30)
[2024-05-04] MEDS: LATANOPROST 0.005 % OPTH(EYE) SOL 2.5ML OP SCH (22:00)
[2024-05-04] MEDS: hydrOXYzine 25 MG TAB or CAP PO SCH (22:23)
[2024-05-04] MEDS: traZODone HCL 50 MG TAB PO SCH (22:23)
[2024-05-04] MEDS: ATORVASTATIN 20 MG TAB PO SCH (22:23)
[2024-05-04 22:53] VITALS: BP 147/79; PULSE 96; RESP 18; TEMP 98.2; O2SAT 97
[2024-05-05] VITALS (8 sets, daily range): BP systolic 113–147; BP diastolic 67–80; PULSE 81–97; RESP 16–19; TEMP 97.3–98.2; O2SAT 93–100
[2024-05-05 06:30] LABS: Basophils # (auto) 0 10 ^3/uL (0-0.2); Basophils % (auto) 0.3 % (0.0-2.0); Eosinophils # (auto) 0.1 10 ^3/uL (0-0.8); Eosinophils % (auto) 1.8 % (0.0-7.0); Hematocrit 39.8 % (36.0-46.0); Hemoglobin 12.9 g/dL (12.2-16.2); Lymphocytes # (auto) 1.8 10 ^3/uL (0.4-5.4); Lymphocytes % (auto) 42.3 % (10.0-50.0); Mean Corpuscular Hemoglobin 32.3 pg (28.0-32.0); Mean Corpuscular Hgb Conc. 32.5 g/dL (32.0-36.0); Mean Corpuscular Volume 99.5 fL (80.0-100.0); Monocytes # (auto) 0.4 10 ^3/uL (0-1.3); Monocytes % (auto) 10.7 % (0.0-12.0); Neutrophils # (auto) 1.9 10 ^3/uL (1.6-8.6); Neutrophils % (auto) 44.9 % (37.0-80.0); Nucleated Red Blood Cells % 0.1 %; Platelet Count (auto) 224 10^3/uL (140-450); Red Cell Distribution Width 13.3 % (11.8-14.3); White Blood Cell 4.2 10^3/uL (4.4-10.8)
[2024-05-05 06:45] LABS: Potassium 3.6 mmol/L (3.5-5.1); Sodium 145 mmol/L (136-145)
[2024-05-05 06:46] LABS: Anion Gap 10 (5-15); Calcium 9.1 mg/dL (8.7-10.4); Carbon Dioxide 27 mmol/L (20-31)
[2024-05-05 06:51] LABS: BUN/Creatinine Ratio 19.2 (10.0-20.0); Blood Urea Nitrogen 14 mg/dL (9-23)
[2024-05-05 06:52] LABS: Magnesium 2.1 mg/dL (1.6-2.6)
[2024-05-05 07:05] LABS: Chloride 108 mmol/L (98-107); Glucose 142 mg/dL (74-106)
[2024-05-05] MEDS: ASPirin-EC 81 mg tab PO SCH (09:30)
[2024-05-05] MEDS: EMPAGLIFLOZIN 10 MG TAB PO SCH (09:30)
[2024-05-05] MEDS: LISINOPRIL 5 MG TAB PO SCH (09:31)
[2024-05-05] MEDS: PANTOPRAZOLE 40 MG TAB PO SCH (09:31)
[2024-05-05] MEDS: CLOPIDOGREL BISULFATE 75 MG TAB PO SCH (09:31)
[2024-05-05] MEDS: POTASSIUM CHL 20 Meq TABLET PO SCH (09:31)
--- NOTE | 2024-05-05 14:42 | DVHPN2 ---
Reviewed: Care Plan, H&P, Labs, Medications, Previous Orders, Radiology Changes from previous H/P or p: No Changes ENT: Other (Right jaw pain and tingling) Cardiovascular: Chest Pain Respiratory: Shortness of breath Gastrointestinal: Nausea, Vomiting, Diarrhea Objective Vitals Vital Signs Date Time Temp Pulse Resp B/P (MAP) Pulse Ox O2 Delivery O2 Flow Rate FiO2 05/05/24 14:12 97.3 90 16 139/80 (99) 100 97.3 05/04/24 22:53 Room Air* 0 21 Intake/Output Intake and Output 05/05/24 07:00 Intake Total 500 ml Balance 500 ml Intake Oral 0 ml IV Total 500 ml Medications Current Medications Medications Dose Ordered Sig/Kevin Route Start Time Stop Time Status Last Admin Dose Admin Diagnostic Test (Pha) 1 strip ACHS 05/04/24 17:00 05/05/24 11:24 1 STRIP Insulin Human Regular ACHS SC 05/04/24 17:00 05/05/24 11:46 3 UNITS Dextrose 50 ml UD PRN IV 05/04/24 14:30 Ondansetron HCl 4 mg Q4HP PRN IV 05/04/24 14:30 Nitroglycerin 0.4 mg Q5MINP PRN SL 05/04/24 14:30 Morphine Sulfate 2 mg Q30M PRN IV 05/04/24 14:30 Sodium Chloride 1,000 ml @ 100 mls/hr Q10H IV 05/04/24 15:00 05/05/24 01:14 100 MLS/HR Aspirin 81 mg DAILY PO 05/05/24 10:00 05/05/24 09:30 81 MG Clopidogrel Bisulfate 75 mg DAILY PO 05/05/24 10:00 05/05/24 09:31 75 MG Furosemide 40 mg BIDD PO 05/04/24 18:00 05/05/24 06:13 40 MG Latanoprost 1 drop HS OP 05/04/24 22:00 Lisinopril 5 mg DAILY PO 05/05/24 10:00 05/05/24 09:31 5 MG Pantoprazole Sodium 40 mg DAILY PO 05/05/24 10:00 05/05/24 09:31 40 MG Trazodone HCl 50 mg HS PO 05/04/24 22:00 05/04/24 22:23 50 MG Artificial Tears 1 drop QID EACHEYE 05/04/24 18:00 05/05/24 06:12 1 DROP Atorvastatin Calcium 40 mg HS PO 05/04/24 22:00 05/04/24 22:23 40 MG Empaglifozin 25 mg DAILY PO 05/05/24 10:00 05/05/24 09:30 25 MG Gabapentin 800 mg QID PO 05/04/24 18:00 05/05/24 12:49 800 MG Hydroxyzine Pamoate 50 mg HS PO 05/04/24 22:00 05/04/24 22:23 50 MG Patient Own Medication 7.5 mg DAILY PO 05/05/24 10:00 Potassium Chloride 20 meq DAILY PO 05/05/24 10:00 05/05/24 09:31 20 MEQ Albuterol 2.5 mg Q4HPRN PRN NEB 05/04/24 15:00 Ipratropium [place] 0.5 mg Q4HPRN PRN NEB 05/04/24 15:00 Budesonide 0.5 mg BID NEB 05/04/24 22:00 Laboratory Results Laboratory Tests 05/05/24 05:33 Chemistry Test 05/05/24 05:33 Calcium Level 9.1 mg/dL (8.7-10.4) Magnesium Level 2.1 mg/dL (1.6-2.6) Urinalysis Test 05/04/24 09:48 Urine Color Light-yellow (Yellow) Urine Clarity Clear (Clear) Urine pH 5.5 (5.0-9.0) Urine Specific [place] 1.022 (1.001-1.035) Urine Protein Negative (Negative) Urine Ketones Negative (Negative) Urine Blood Negative /uL (Negative) Urine Nitrite Negative (Negative) Urine Bilirubin Negative (Negative) Urine Urobilinogen Normal mg/dL (Negative) Urine Leukocyte Esterase Negative /uL (Negative) Urine RBC <1 /hpf (0 - 4) Urine Microscopic WBC 1 /HPF (0-5) Urine Squamous Epithelial Cells Few /hpf (<5) Urine Bacteria Mod /hpf (None Seen) H Urine Hyaline Casts Mod /lpf (0 - 2) Urine Mucus Few (None Seen) Urine Glucose Trace mg/dL (Normal) Labs and/or images reviewed: Labs reviewed by me, Image(s) reviewed by me Assessment/Plan Assessment/Plan Chest pain rule out coronary artery disease: Troponin negative x3, treatment per ACS protocol, cardiology consult for Uncontrolled diabetes: Insulin sliding scale Hypertension Asthma Anxiety Arthritis Osteoarthritis History of CVA no deficits Depression Plan discussed with: Patient Date of Service: May 05, 2024 Billing Provider: MICHAEL OAKES MD Common Visit Codes: [id number] INP/OBS CARE(HIGH) MICHAEL OAKES MD May 05, 2024 14:42
--- NOTE | 2024-05-05 16:14 | DVHINCON2 ---
JOSEPH DORAN [facility] 05/05/24 1614: Date Seen: May 05, 2024 Referring Physician MD Saulo Reason for Consultation Chest pain History of Present Illness This is a 53-year-old female who presented to the emergency room with a chief complaint of chest pain. Describes her chest pain as left-sided, nonradiating, intermittent, stabbing/sharp in nature, worse with movement/inspiration, and with some relief with Pepto-Bismol. The patient endorses she has deal with this pain for many years secondary to esophagitis. This time the pain is not any better or any worse. Denies shortness of breath, palpitations, diaphoresis, dizziness, or syncopal events. Upon arrival she was found with a systolic blood pressure in the 170s mmHg. States she takes lisinopril for renal protection and not hypertension. She used to follow up in the outpatient setting with Dr. Quigley, Cardiology, approximately 4 years ago for a cardiac risk stratification. At that time, she was found with a newly diagnosed left bundle branch block undergoing a non-ischemic stress test. Denies any invasive cardiac interventions in the past. Reports she was cleared by cardiology with no further follow-ups. She underwent multiple 12 lead electrocardiogram revealing sinus rhythm with a associated LBBB and nonspecific ST changes to lateral leads. Significant medical history includes known left bundle branch block, dyslipidemia, insulin-dependent diabetes mellitus, recent TIA on 01/22/2024 on Plavix therapy, esophagitis with GI follow-up later on this month, osteoarthritis, and anxiety. Past Medical History Past medical history reviewed. No other significant than mentioned above. Past Surgical History Cholecystectomy Bilateral cataract removal C-sections x4 Gastric sleeve Panniculectomy Abdominal I&D Family History: FHx: chronic obstructive pulmonary disease G8 MOTHER Family history: Diabetes mellitus G8 MOTHER Family history: Glaucoma G8 FATHER Family history: Hypertension G8 MOTHER Heart murmur grandma No Family History of: Family history: Congenital anomaly Family History Family history reviewed. Social History Denies the use of illicit drugs or tobacco use. Admits to occasional alcohol use. Allergies: Coded Allergies: NO KNOWN ALLERGIES (Unverified , 03/24/11) Home Meds Active Scripts Famotidine (PEPCID TABLET) 20 Mg Tb, 1 TAB PO BID PRN for 30 Days, #60 TAB 3 Refills Prov:HILARIO REAL MD 12/29/23 Ibuprofen Micronized (MOTRIN TABLET) 600 Mg Tb, 600 MG PO TID PRN for 7 Days, #21 TAB *Black box warning-NSAIDS can increase risk of [place] & hypertension, GI irritation, ulceration, bleed, perferation. Do not use post cardiac surgery. Use short duration/lowest effective dose. Prov:HILARIO REAL MD 12/29/23 Clindamycin HCl (Clindamycin Hydrochloride) 300 Mg Cap, 300 MG PO QID for 7 Days, #28 CAP Prov:HILARIO REAL MD 12/29/23 Reported Medications Hydroxyzine Hcl (Hydroxyzine Hcl) 50 Mg Tab, 50 MG PO HS, TAB 12/25/23 Umeclidinium [place] (Incruse Ellipta) 62.5 Mcg/Inh Inh, 1 PUFF IN PRN for SHORTNESS OF BREATH, INHALER 12/25/23 Albuterol Sulfate (VENTOLIN MDI) 90 Mcg Ih, 2 PUFF IN PRN for SHORTNESS OF BREATH, INH 12/25/23 Artificial Tear Solution (ARTIFICIAL TEARS) Tears Blaire, 1 DROP EACHEYE QID for DRY EYES, ML 12/25/23 Latanoprost (LATANOPROST) 0.005 % Blaire, 0.005 % OP HS, ML 12/25/23 Tramadol Hcl (Tramadol Hcl) 50 Mg Tab, 1 TAB PO TID 12/25/23 Semaglutide (Ozempic) 4 Mg/3 Ml Inj, 0.1 UNIT SC QWEEKLY 12/25/23 Insulin Glargine (Insulin Glargine Solostar) 300 Unit/Ml Inj, 40 UNIT SC QAM 12/25/23 Insulin Lispro (Humalog Kwikpen) 100 Unit/Ml Inj, 8-12 UNITS SC TIDBM 12/25/23 Trazodone HCl (Trazodone Hydrochloride) 50 Mg Tab, 50 MG PO HS, TAB 12/24/23 Gabapentin (Gabapentin) 800 Mg Tab, 1 TAB PO QID 12/24/23 Empagliflozin (Jardiance) 25 Mg Tab, 1 TAB PO DAILY 12/24/23 Clopidogrel Bisulfate (CLOPIDOGREL) 75 Mg Tab, 1 TAB PO DAILY 12/24/23 Atorvastatin Calcium (ATORVASTATIN CALCIUM) 40 Mg Tab, 1 TAB PO HS 10/22/24 Furosemide (Furosemide) 40 Mg Tab, 1 TAB PO BID 12/27/21 Lisinopril (Lisinopril) 5 Mg Tab, 1 TAB PO DAILY 12/27/21 Potassium Chloride (K-Tab) 20 Meq Tab, 1 TAB PO DAILY 12/27/21 Pantoprazole Sodium Sesquihydr (Pantoprazole Sodium) 40 Mg Tab, 1 TAB PO DAILY 12/27/21 Meloxicam (Meloxicam) 15 Mg Tab, 7.5 MG PO DAILY, #30 TAB 07/01/16 Aspirin (ASPIRIN 81) 81 Mg Tab, 81 MG PO DAILY, TAB 11/10/14 Home Meds Home medications reviewed. Current Medications Current Medications Medications (Trade) Dose Ordered Sig/Kevin Route PRN Reason Start Time Stop Time Status Last Admin Diagnostic Test (Pha) (Accu-Chek Comfort Curve T) 1 strip ACHS 05/04/24 17:00 05/05/24 11:24 Insulin Human Regular (InsuLIN R) ACHS SC 05/04/24 17:00 05/05/24 11:46 Aspirin (Ecotrin Enteric Coated Tablet) 81 mg DAILY PO 05/05/24 10:00 05/05/24 09:30 Clopidogrel Bisulfate (Plavix) 75 mg DAILY PO 05/05/24 10:00 05/05/24 09:31 Furosemide (Lasix Tablet) 40 mg BIDD PO 05/04/24 18:00 05/05/24 06:13 Latanoprost (Xalatan) 1 drop HS OP 05/04/24 22:00 Lisinopril (Zestril Tablet) 5 mg DAILY PO 05/05/24 10:00 05/05/24 09:31 Pantoprazole Sodium (Protonix Tablet) 40 mg DAILY PO 05/05/24 10:00 05/05/24 09:31 Trazodone HCl (Desyrel) 50 mg HS PO 05/04/24 22:00 05/04/24 22:23 Artificial Tears (Tears Naturale) 1 drop QID EACHEYE 05/04/24 18:00 05/05/24 06:12 Atorvastatin Calcium (Lipitor) 40 mg HS PO 05/04/24 22:00 05/04/24 22:23 Empaglifozin (Jardiance) 25 mg DAILY PO 05/05/24 10:00 05/05/24 09:30 Gabapentin (Neurontin Capsule) 800 mg QID PO 05/04/24 18:00 05/05/24 12:49 Hydroxyzine Pamoate (Vistaril Oral) 50 mg HS PO 05/04/24 22:00 05/04/24 22:23 Patient Own Medication 7.5 mg DAILY PO 05/05/24 10:00 Potassium Chloride (Klor-Con Tablet) 20 meq DAILY PO 05/05/24 10:00 05/05/24 09:31 Budesonide (Pulmicort) 0.5 mg BID NEB 05/04/24 22:00 Review of Systems Constitutional: No symptom reported Ears, Nose, & Throat: No symptom reported Eyes: No symptom reported Neurological: No symptoms reported Pulmonary/Respiratory: No symptom reported Cardiovascular: Chest pain Gastrointestinal: No symptom reported Genitourinary: No symptom reported Musculoskeletal: No symptom reported Skin: No symptom reported Psychiatric: No symptom reported Endocrine: No symptom reported Hemotologic/Lymphatic: No symptom reported Vital Signs Vital Signs Date Time Temp Pulse Resp B/P (MAP) Pulse Ox O2 Delivery O2 Flow Rate FiO2 05/05/24 14:12 97.3 90 16 139/80 (99) 100 97.3 05/05/24 08:00 Room Air* 0 21 Physical Exam General Appearance: Cooperative. Well developed. Well nourished. In no acute distress Head Exam: Normal inspection Neck Exam: Normal inspection. Non-tender. Normal alignment Pulmonary/Respiratory: Chest non-tender. Clear bilateral breath sounds Cardiovascular/Chest: Regular rate and rhythm. S1, S2. Sinus rhythm with a associated LBBB and nonspecific ST changes to lateral leads. No murmurs. No JVD. Peripheral Pulses: 2+ Radial (R). 2+ Radial (L). 2+ Pedal (R). 2+ Pedal (L) Abdominal Exam: Normal bowel sounds. Soft. Nontender. No hepatospenomegaly. No masses Ankle Exam: Negative ankle edema Lower extremities: Negative lower extremity edema Neuro/Mental Status: A&O x4. Coherent Thoughts/Psych: Normal thought pattern. Appropriate mood and affect. Good judgement and insight Appearance: In no acute distress Skin Exam: Normal inspection. Normal color. Warm. Dry Labs/Diagnostic Data Labs Test 05/05/24 11:05 05/05/24 05:33 05/04/24 16:04 3/3/25 09:48 Range/Units POC Glucose 185 H 70-106 mg/dl White Blood Count 4.2 L 4.4-10.8 10^3/uL Red Blood Count 4.00 4.0-5.20 10^6/uL Hemoglobin 12.9 12.2-16.2 g/dL Hematocrit 39.8 36.0-46.0 % Mean Corpuscular Volume 99.5 80.0-100.0 fL Mean Corpuscular Hemoglobin 32.3 H 28.0-32.0 pg Mean Corpuscular Hemoglobin Concent 32.5 32.0-36.0 g/dL Red Cell Distribution Width 13.3 11.8-14.3 % Platelet Count 224 140-450 10^3/uL Mean Platelet Volume 8.2 6.9-10.8 fL Neutrophils (%) (Auto) 44.9 37.0-80.0 % Lymphocytes (%) (Auto) 42.3 10.0-50.0 % Monocytes (%) (Auto) 10.7 0.0-12.0 % Eosinophils (%) (Auto) 1.8 0.0-7.0 % Basophils (%) (Auto) 0.3 0.0-2.0 % Neutrophils # (Auto) 1.9 1.6-8.6 10 ^3/uL Lymphocytes # (Auto) 1.8 0.4-5.4 10 ^3/uL Monocytes # (Auto) 0.4 0-1.3 10 ^3/uL Eosinophils # (Auto) 0.1 0-0.8 10 ^3/uL Basophils # (Auto) 0 0-0.2 10 ^3/uL Nucleated Red Blood Cells 0.1 % Sodium Level 145 136-145 mmol/L Potassium Level 3.6 3.5-5.1 mmol/L Chloride Level 108 H 98-107 mmol/L Carbon Dioxide Level 27 20-31 mmol/L Anion Gap 10 5-15 Blood Urea Nitrogen 14 9-23 mg/dL Creatinine 0.73 # 0.550-1.02 mg/dL Glomerular Filtration Rate Calc 99 >90 mL/min BUN/Creatinine Ratio 19.2 10.0-20.0 Serum Glucose 142 H 74-106 mg/dL Calcium Level 9.1 8.7-10.4 mg/dL Magnesium Level 2.1 1.6-2.6 mg/dL Troponin I High Sensitivity < 3 L </=34 ng/L Urine Color Light-yellow Yellow Urine Clarity Clear Clear Urine pH 5.5 5.0-9.0 Urine Specific [place] 1.022 1.001-1.035 Urine Protein Negative Negative Urine Ketones Negative Negative Urine Blood Negative Negative /uL Urine Nitrite Negative Negative Urine Bilirubin Negative Negative Urine Urobilinogen Normal Negative mg/dL Urine Leukocyte Esterase Negative Negative /uL Urine RBC <1 0 - 4 /hpf Urine Microscopic WBC 1 0-5 /HPF Urine Squamous Epithelial Cells Few <5 /hpf Urine Bacteria Mod H None Seen /hpf Urine Hyaline Casts Mod 0 - 2 /lpf Urine Mucus Few None Seen Urine Glucose Trace Normal mg/dL Urine Opiates Screen Neg NEGATIVE Urine Fentanyl Screen Neg NEGATIVE Urine Barbiturates Screen Neg NEGATIVE Urine Phencyclidine Screen Neg NEGATIVE Urine Amphetamines Screen Neg NEGATIVE Urine Benzodiazepines Screen Neg NEGATIVE Urine Cocaine Screen Neg NEGATIVE Urine Cannabinoids Screen Neg NEGATIVE Test 05/04/24 09:32 Range/Units Hemoglobin A1c 8.5 H <5.7 % A1C Triglycerides Level 265 H < 150 mg/dL Cholesterol Level 126 < 200 mg/dL LDL Cholesterol 20 < 100 mg/dL HDL Cholesterol 69 H 40-59 mg/dL Thyroid Stimulating Hormone (TSH) 0.90 0.55-4.78 uIU/mL Assessment Non-cardiac chest pain rule out [place] Known left-bundle branch block Hypertensive urgency HX of esophagitis Recent TIA on Plavix therapy Insulin-dependent diabetes mellitus Dyslipidemia Obesity Plan/Recommendation (Dr. Enrique) Case discussed in detail and patient examined by Dr. Enrique. The patient presents with non-cardiac chest pain. We will continue further assessment with a transthoracic echocardiogram to rule out structural heart disease. Continue blood pressure control. Continue Plavix therapy given recent TIA. Continue PPI and lipid lowering agent. Recommendations are for patient to follow-up with a primary Reading Intervention Teacher given history of LBBB. In the setting of an unremarkable echocardiogram there is no further cardiac work-up indicated at this time. Consider GI consult. Thank you for allowing us to participate in this patient's care. Please call if you have any questions or concerns. This medical document was created using an electronic medical record system with voice recognition software and computerized dictation system. Although this document has been carefully reviewed, there might still be some phonetic and typographical errors. Occasional wrong-word or ``sound-alike substitutions may have occurred due to the inherent limitations of voice recognition software. These areas are purely typographical due to imperfections of the software programs and do not reflect any compromise in the patient's medical care. Please read the chart carefully and recognize, using context, where these substitutions have occurred. Plan discussed with: Patient, Other [place] Physical activity limitations: NA Date of Service: May 05, 2024 Billing Provider: JOSEPH DORAN CHANGE CONTROL ANALYST Cardiology Common Codes: [id number] INP/OBS CARE (High) GETACHEW ENRIQUE MD 05/05/242020: Date Seen: May 05, 2024 Family History: FHx: chronic obstructive pulmonary disease G8 MOTHER Family history: Diabetes mellitus G8 MOTHER Family history: Glaucoma G8 FATHER Family history: Hypertension G8 MOTHER Heart murmur grandma No Family History of: Family history: Congenital anomaly Allergies: Coded Allergies: NO KNOWN ALLERGIES (Unverified , 03/24/11) Home Meds Active Scripts Famotidine (PEPCID TABLET) 20 Mg Tb, 1 TAB PO BID PRN for 30 Days, #60 TAB 3 Refills Prov:HILARIO REAL MD 12/29/23 Ibuprofen Micronized (MOTRIN TABLET) 600 Mg Tb, 600 MG PO TID PRN for 7 Days, #21 TAB *Black box warning-NSAIDS can increase risk of [place] & hypertension, GI irritation, ulceration, bleed, perferation. Do not use post cardiac surgery. Use short duration/lowest effective dose. Prov:HILARIO REAL MD 12/29/23 Clindamycin HCl (Clindamycin Hydrochloride) 300 Mg Cap, 300 MG PO QID for 7 Days, #28 CAP Prov:HILARIO REAL MD 12/29/23 Reported Medications Hydroxyzine Hcl (Hydroxyzine Hcl) 50 Mg Tab, 50 MG PO HS, TAB 12/25/23 Umeclidinium [place] (Incruse Ellipta) 62.5 Mcg/Inh Inh, 1 PUFF IN PRN for SHORTNESS OF BREATH, INHALER 12/25/23 Albuterol Sulfate (VENTOLIN MDI) 90 Mcg Ih, 2 PUFF IN PRN for SHORTNESS OF BREATH, INH 12/25/23 Artificial Tear Solution (ARTIFICIAL TEARS) Tears [place], 1 DROP EACHEYE QID for DRY EYES, ML 12/25/23 Latanoprost (LATANOPROST) 0.005 % [place], 0.005 % OP HS, ML 12/25/23 Tramadol Hcl (Tramadol Hcl) 50 Mg Tab, 1 TAB PO TID 12/25/23 Semaglutide (Ozempic) 4 Mg/3 Ml Inj, 0.1 UNIT SC QWEEKLY 12/25/23 Insulin Glargine (Insulin Glargine Solostar) 300 Unit/Ml Inj, 40 UNIT SC QAM 12/25/23 Insulin Lispro (Humalog Kwikpen) 100 Unit/Ml Inj, 8-12 UNITS SC TIDBM 12/25/23 Trazodone HCl (Trazodone Hydrochloride) 50 Mg Tab, 50 MG PO HS, TAB 12/24/23 Gabapentin (Gabapentin) 800 Mg Tab, 1 TAB PO QID 12/24/23 Empagliflozin (Jardiance) 25 Mg Tab, 1 TAB PO DAILY 12/24/23 Clopidogrel Bisulfate (CLOPIDOGREL) 75 Mg Tab, 1 TAB PO DAILY 12/24/23 Atorvastatin Calcium (ATORVASTATIN CALCIUM) 40 Mg Tab, 1 TAB PO HS 12/24/23 Furosemide (Furosemide) 40 Mg Tab, 1 TAB PO BID 12/27/21 Lisinopril (Lisinopril) 5 Mg Tab, 1 TAB PO DAILY 12/27/21 Potassium Chloride (K-Tab) 20 Meq Tab, 1 TAB PO DAILY 12/27/21 Pantoprazole Sodium Sesquihydr (Pantoprazole Sodium) 40 Mg Tab, 1 TAB PO DAILY 12/27/21 Meloxicam (Meloxicam) 15 Mg Tab, 7.5 MG PO DAILY, #30 TAB 07/01/16 Aspirin (ASPIRIN 81) 81 Mg Tab, 81 MG PO DAILY, TAB 11/10/14 Plan/Recommendation non-cardiac chest pain patient with known LBBB since atleast 2021 presenting with central chest pain similar to all her previous gastritis episodes. pending trial of GI cocktail while inpatient. no other cardiac symptoms illicit. ekg neg for Sgar[place]ossa criteria. trop ruled out [place]. she does have progression of her LBBB and she will need EP follow up. Differential of LBBB in young female must include sarcoidosis. I have discussed the above with the patient at bedside. Limitations to access healthcare include her insurance plan requiring referrals. She should get a CT coronary chest as outpatient (assess for lung granuloma as well as CAD assessment). Plan discussed with: Patient JOSEPH DORAN May 05, 2024 16:14 GETACHEW ENRIQUE MD May 05, 2024 20:21
--- NOTE | 2024-05-05 17:44 | DVHINCON2 ---
Date of service: May 05, [address] Jose Antonio sy Reason for Consultation Upper abdominal pain History of Present Illness This is a 53-year-old female who presented to the emergency room with a chief complaint of chest pain. Describes her chest pain as left-sided, nonradiating, intermittent, stabbing/sharp in nature, worse with movement/inspiration, and with some relief with Pepto-Bismol. The patient endorses she has deal with this pain for many years secondary to esophagitis. This time the pain is not any better or any worse. Denies shortness of breath, palpitations, diaphoresis, dizziness, or syncopal events. Patient has also been seen by cardiology consult. Upon arrival she was found with a systolic blood pressure in the 170s mmHg. States she takes lisinopril for renal protection and not hypertension. She used to follow up in the outpatient setting with Dr. Quigley, Cardiology, approximately 4 years ago for a cardiac risk stratification. At that time, she was found with a newly diagnosed left bundle branch block undergoing a non-ischemic stress test. Denies any invasive cardiac interventions in the past. Reports she was cleared by cardiology with no further follow-ups. She underwent multiple 12 lead electrocardiogram revealing sinus rhythm with a associated LBBB and nonspecific ST changes to lateral leads. Significant medical history includes known left bundle branch block, dyslipidemia, insulin-dependent diabetes mellitus, recent TIA on 01/22/2024 on Plavix therapy, esophagitis with GI follow-up later on this month, osteoarthritis, and anxiety. Past Medical History Cardiovascular: HTN, hyperipidemia Pulmonary: Asthma GI: Other (Hiatal hernia) Psych: Anxiety Endocrine: Diabetes Past Medical History Arthritis Osteoarthritis CVA TIA Depression Past Surgical History Past Surgical History: Cholecystectomy, Cataract Removal, , Other (Gastric sleeve, gastric sleeve, and panniculectomy) Family History: FHx: chronic obstructive pulmonary disease G8 MOTHER Family history: Diabetes mellitus G8 MOTHER Family history: Glaucoma G8 FATHER Family history: Hypertension G8 MOTHER Heart murmur grandma No Family History of: Family history: Congenital anomaly Allergies: Coded Allergies: NO KNOWN ALLERGIES (Unverified , 03/24/11) Home Meds Active Scripts Famotidine (PEPCID TABLET) 20 Mg Tb, 1 TAB PO BID PRN for 30 Days, #60 TAB 3 Refills Prov:HILARIO REAL MD 12/29/23 Ibuprofen Micronized (MOTRIN TABLET) 600 Mg Tb, 600 MG PO TID PRN for 7 Days, #21 TAB *Black box warning-NSAIDS can increase risk of CT & hypertension, GI irritation, ulceration, bleed, perferation. Do not use post cardiac surgery. Use short duration/lowest effective dose. Prov:HILARIO REAL MD 12/29/23 Clindamycin HCl (Clindamycin Hydrochloride) 300 Mg Cap, 300 MG PO QID for 7 Days, #28 CAP Prov:HILARIO REAL MD 12/29/23 Reported Medications Hydroxyzine Hcl (Hydroxyzine Hcl) 50 Mg Tab, 50 MG PO HS, TAB 12/25/23 Umeclidinium [place] (Incruse Ellipta) 62.5 Mcg/Inh Inh, 1 PUFF IN PRN for SHORTNESS OF BREATH, INHALER 12/25/23 Albuterol Sulfate (VENTOLIN MDI) 90 Mcg Ih, 2 PUFF IN PRN for SHORTNESS OF BREATH, INH 12/25/23 Artificial Tear Solution (ARTIFICIAL TEARS) Tears [place], 1 DROP EACHEYE QID for DRY EYES, ML 12/25/23 Latanoprost (LATANOPROST) 0.005 % [place], 0.005 % OP HS, ML 12/25/23 Tramadol Hcl (Tramadol Hcl) 50 Mg Tab, 1 TAB PO TID 12/25/23 Semaglutide (Ozempic) 4 Mg/3 Ml Inj, 0.1 UNIT SC QWEEKLY 12/25/23 Insulin Glargine (Insulin Glargine Solostar) 300 Unit/Ml Inj, 40 UNIT SC QAM 12/25/23 Insulin Lispro (Humalog Kwikpen) 100 Unit/Ml Inj, 8-12 UNITS SC TIDBM 12/25/23 Trazodone HCl (Trazodone Hydrochloride) 50 Mg Tab, 50 MG PO HS, TAB 12/24/23 Gabapentin (Gabapentin) 800 Mg Tab, 1 TAB PO QID 12/24/23 Empagliflozin (Jardiance) 25 Mg Tab, 1 TAB PO DAILY 12/24/23 Clopidogrel Bisulfate (CLOPIDOGREL) 75 Mg Tab, 1 TAB PO DAILY 12/24/23 Atorvastatin Calcium (ATORVASTATIN CALCIUM) 40 Mg Tab, 1 TAB PO HS 12/24/23 Furosemide (Furosemide) 40 Mg Tab, 1 TAB PO BID 12/27/21 Lisinopril (Lisinopril) 5 Mg Tab, 1 TAB PO DAILY 12/27/21 Potassium Chloride (K-Tab) 20 Meq Tab, 1 TAB PO DAILY 12/27/21 Pantoprazole Sodium Sesquihydr (Pantoprazole Sodium) 40 Mg Tab, 1 TAB PO DAILY 12/27/21 Meloxicam (Meloxicam) 15 Mg Tab, 7.5 MG PO DAILY, #30 TAB 07/01/16 Aspirin (ASPIRIN 81) 81 Mg Tab, 81 MG PO DAILY, TAB 11/10/14 Current Medications Current Medications Medications (Trade) Dose Ordered Sig/Kevin Route PRN Reason Start Time Stop Time Status Last Admin Aspirin (Ecotrin Enteric Coated Tablet) 81 mg DAILY PO 05/05/24 10:00 05/05/24 09:30 Clopidogrel Bisulfate (Plavix) 75 mg DAILY PO 05/05/24 10:00 05/05/24 09:31 Furosemide (Lasix Tablet) 40 mg BIDD PO 05/04/24 18:00 05/05/24 06:13 Latanoprost (Xalatan) 1 drop HS OP 05/04/24 22:00 Lisinopril (Zestril Tablet) 5 mg DAILY PO 05/05/24 10:00 05/05/24 09:31 Pantoprazole Sodium (Protonix Tablet) 40 mg DAILY PO 05/05/24 10:00 05/05/24 09:31 Trazodone HCl (Desyrel) 50 mg HS PO 05/04/24 22:00 05/04/24 22:23 Artificial Tears (Tears Naturale) 1 drop QID EACHEYE 05/04/24 18:00 05/05/24 06:12 Atorvastatin Calcium (Lipitor) 40 mg HS PO 05/04/24 22:00 05/04/24 22:23 Empaglifozin (Jardiance) 25 mg DAILY PO 05/05/24 10:00 05/05/24 09:30 Gabapentin (Neurontin Capsule) 800 mg QID PO 05/04/24 18:00 05/05/24 12:49 Hydroxyzine Pamoate (Vistaril Oral) 50 mg HS PO 05/04/24 22:00 05/04/24 22:23 Patient Own Medication 7.5 mg DAILY PO 05/05/24 10:00 Potassium Chloride (Klor-Con Tablet) 20 meq DAILY PO 05/05/24 10:00 05/05/24 09:31 Budesonide (Pulmicort) 0.5 mg BID NEB 05/04/24 22:00 Vital Signs Vital Signs Date Time Temp Pulse Resp B/P (MAP) Pulse Ox O2 Delivery O2 Flow Rate FiO2 05/05/24 17:20 97.3 91 16 121/72 (88) 96 97.3 05/05/24 08:00 Room Air* 0 21 Physical Exam General Appearance: Alert, Oriented X3, Cooperative, No acute distress HEENT: Atraumatic, PERRLA, EOMI, Mucous membr. moist/pink Respiratory: Clear to auscultation, Normal air movement Cardiovascular: Normal S1, Normal S2, No murmurs Abdominal: Normal bowel sounds, Soft, No tenderness, No hepatospenomegaly, No masses Extremities: No clubbing, No cyanosis, No edema, Normal pulses, No tenderness/swelling Skin: No rashes, No breakdown, No significant lesion Neuro: Normal speech, Strength at 5/5 X4 ext, Normal tone, Sensation intact Psych/Mental Status: Mental status NL, Mood NL Labs/Diagnostic Data Labs Test 05/05/24 16:49 05/05/24 05:33 05/04/24 16:04 05/04/24 09:48 Range/Units POC Glucose 180 H 70-106 mg/dl White Blood Count 4.2 L 4.4-10.8 10^3/uL Red Blood Count 4.00 4.0-5.20 10^6/uL Hemoglobin 12.9 12.2-16.2 g/dL Hematocrit 39.8 36.0-46.0 % Mean Corpuscular Volume 99.5 80.0-100.0 fL Mean Corpuscular Hemoglobin 32.3 H 28.0-32.0 pg Mean Corpuscular Hemoglobin Concent 32.5 32.0-36.0 g/dL Red Cell Distribution Width 13.3 11.8-14.3 % Platelet Count 224 140-450 10^3/uL Mean Platelet Volume 8.2 6.9-10.8 fL Neutrophils (%) (Auto) 44.9 37.0-80.0 % Lymphocytes (%) (Auto) 42.3 10.0-50.0 % Monocytes (%) (Auto) 10.7 0.0-12.0 % Eosinophils (%) (Auto) 1.8 0.0-7.0 % Basophils (%) (Auto) 0.3 0.0-2.0 % Neutrophils # (Auto) 1.9 1.6-8.6 10 ^3/uL Lymphocytes # (Auto) 1.8 0.4-5.4 10 ^3/uL Monocytes # (Auto) 0.4 0-1.3 10 ^3/uL Eosinophils # (Auto) 0.1 0-0.8 10 ^3/uL Basophils # (Auto) 0 0-0.2 10 ^3/uL Nucleated Red Blood Cells 0.1 % Sodium Level 145 136-145 mmol/L Potassium Level 3.6 3.5-5.1 mmol/L Chloride Level 108 H 98-107 mmol/L Carbon Dioxide Level 27 20-31 mmol/L Anion Gap 10 5-15 Blood Urea Nitrogen 14 9-23 mg/dL Creatinine 0.73 # 0.550-1.02 mg/dL Glomerular Filtration Rate Calc 99 >90 mL/min BUN/Creatinine Ratio 19.2 10.0-20.0 Serum Glucose 142 H 74-106 mg/dL Calcium Level 9.1 8.7-10.4 mg/dL Magnesium Level 2.1 1.6-2.6 mg/dL Troponin I High Sensitivity < 3 L </=34 ng/L Urine Color Light-yellow Yellow Urine Clarity Clear Clear Urine pH 5.5 5.0-9.0 Urine Specific [place] 1.022 1.001-1.035 Urine Protein Negative Negative Urine Ketones Negative Negative Urine Blood Negative Negative /uL Urine Nitrite Negative Negative Urine Bilirubin Negative Negative Urine Urobilinogen Normal Negative mg/dL Urine Leukocyte Esterase Negative Negative /uL Urine RBC <1 0 - 4 /hpf Urine Microscopic WBC 1 0-5 /HPF Urine Squamous Epithelial Cells Few <5 /hpf Urine Bacteria Mod H None Seen /hpf Urine Hyaline Casts Mod 0 - 2 /lpf Urine Mucus Few None Seen Urine Glucose Trace Normal mg/dL Urine Opiates Screen Neg NEGATIVE Urine Fentanyl Screen Neg NEGATIVE Urine Barbiturates Screen Neg NEGATIVE Urine Phencyclidine Screen Neg NEGATIVE Urine Amphetamines Screen Neg NEGATIVE Urine Benzodiazepines Screen Neg NEGATIVE Urine Cocaine Screen Neg NEGATIVE Urine Cannabinoids Screen Neg NEGATIVE Test 05/04/24 09:32 Range/Units Hemoglobin A1c 8.5 H <5.7 % A1C Triglycerides Level 265 H < 150 mg/dL Cholesterol Level 126 < 200 mg/dL LDL Cholesterol 20 < 100 mg/dL HDL Cholesterol 69 H 40-59 mg/dL Thyroid Stimulating Hormone (TSH) 0.90 0.55-4.78 uIU/mL Problems(with codes): (1) ST segment abnormality (2) Chest pain of unknown etiology Plan/Recommendation Plan Patient has been seen by cardiology consult and their recommendations are Cardiolite stress test; patient is NPO after midnight for the same Transthoracic echocardiogram Blood pressure control Continue Plavix Continue PPI lipid lowering agent and monitoring EKG changes Patient is on chest pain protocol Once the patient has had a cardiac evaluation then there can be consideration given for a possible repeat endoscopy I will discuss this with the patient to see when her last procedure was Continue Protonix 40 mg p.o. daily Carafate 1 g p.o. 4 times a day I will follow this patient with you Once again thank you for allowing me to participate in the care of this patient Plan discussed with: Patient DARLING VIDAL MD May 05, 2024 17:44
[2024-05-05] MEDS: ONDANSETRON HCL 4 MG/2 ML VIAL IV PRN (20:01)
[2024-05-05] MEDS: SUCRALFATE 1 GM/10 ML ORAL SUSP PO SCH (21:33)
[2024-05-06 01:00] VITALS: BP 92/54; PULSE 84; RESP 17; TEMP 98.3; O2SAT 96
[2024-05-06 05:00] VITALS: BP 95/60; PULSE 73; RESP 17; TEMP 97.5; O2SAT 96
[2024-05-06 08:00] VITALS: O2SAT 97
[2024-05-06 09:00] VITALS: BP 119/68; PULSE 77; RESP 18; TEMP 97.9; O2SAT 100
--- NOTE | 2024-05-06 12:01 | DVHSR ---
APPROVED REPORT EXAM: Two-dimensional and M-mode echocardiogram with Doppler and color Doppler. Blood Pressure: 113/67 mmHg INDICATION Chest Pain RISK FACTORS Height: 50, Weight: 146 DIMENSIONS LVDd3.4 (3.8-5.7cm)LA (2D)3.7 (1.9-4.0cm)Aortic Root3.0 (2.0-3.7cm) LVDs2.4 (2.5-4.0cm)LA (MM) (1.9-4.0cm)Aortic Cusp Exc1.8 (1.5-2.0cm) EF (%) 58.0 (55-70%)Rt. Atrium3.5 (1.9-4.0cm)Asc. Aorta cm IVSd1.3 (0.7-1.1cm)RV (D) (1.8-2.4cm) PWd1.2 (0.7-1.1cm) Mitral Valve MitralMitral Stenosis E wave0.63m/sMV Mean GR.2mmHg A wave0.95m/sMV Peak GR.5mmHg E/A ratio0.72D MVAcm2 DECEL [id number] 1/2 [id number] IVRTmsDop MVA5.13cm2 Aortic Valve Aortic ValveAortic Stenosis V11.08m/S[place] Mean GR.4mmHg V21.51m/[place] Peak GR.9mmHg LVOT Diameter2.1 (1.8-2.4cm)Doppler AVA2.48cm2 Pulmonic Valve V21.06m/s Tricuspid Valve TR Velocity2.64m/s [id number] Other Information Technically limited study due to body habitus. Conclusion Technically good study sinus rhythm. Concentric LVH. Valves appear to be structurally normal. Left ventricular function is preserved. EF is 60% with normal RV function. Abnormal septal motion g iven left bundle branch block. Mild tricuspid regurgitation No pericardial effusion masses or vegetations.
--- NOTE | 2024-05-06 12:37 | DVHPN2 ---
Reviewed: Care Plan, H&P, Labs, Medications, Previous Orders, Radiology Changes from previous H/P or p: No Changes ENT: Other (Right jaw pain and tingling) Cardiovascular: Chest Pain Respiratory: Shortness of breath Gastrointestinal: Nausea, Vomiting, Diarrhea Objective Vitals Vital Signs Date Time Temp Pulse Resp B/P (MAP) Pulse Ox O2 Delivery O2 Flow Rate FiO2 05/06/24 10:25 120/68 05/06/24 09:00 97.9 77 18 100 97.9 05/06/24 08:00 Room Air* 0 21 Intake/Output Intake and Output 05/06/24 07:00 Intake Total 2450 ml Balance 2450 ml Intake Oral 1350 ml IV Total 1100 ml # Voids 11 # Bowel Movements 1 Medications Current Medications Medications Dose Ordered Sig/Kevin Route Start Time Stop Time Status Last Admin Dose Admin Diagnostic Test (Pha) 1 strip ACHS 05/04/24 17:00 05/06/24 11:01 1 STRIP Insulin Human Regular ACHS SC 05/04/24 17:00 05/05/24 22:06 6 UNITS Dextrose 50 ml UD PRN IV 05/04/24 14:30 Ondansetron HCl 4 mg Q4HP PRN IV 05/04/24 14:30 05/05/24 20:01 4 MG Nitroglycerin 0.4 mg Q5MINP PRN SL 05/04/24 14:30 Morphine Sulfate 2 mg Q30M PRN IV 05/04/24 14:30 Sodium Chloride 1,000 ml @ 100 mls/hr Q10H IV 05/04/24 15:00 05/06/24 06:43 100 MLS/HR Aspirin 81 mg DAILY PO 05/05/24 10:00 05/06/24 10:24 81 MG Clopidogrel Bisulfate 75 mg DAILY PO 05/05/24 10:00 05/06/24 10:24 75 MG Furosemide 40 mg BIDD PO 05/04/24 18:00 05/05/24 06:13 40 MG Latanoprost 1 drop HS OP 05/04/24 22:00 05/05/24 21:32 1 DROP Lisinopril 5 mg DAILY PO 05/05/24 10:00 05/06/24 10:25 5 MG Pantoprazole Sodium 40 mg DAILY PO 05/05/24 10:00 05/06/24 10:24 40 MG Trazodone HCl 50 mg HS PO 05/04/24 22:00 05/05/24 21:33 50 MG Artificial Tears 1 drop QID EACHEYE 05/04/24 18:00 05/06/24 11:01 1 DROP Atorvastatin Calcium 40 mg HS PO 05/04/24 22:00 05/05/24 21:33 40 MG Empaglifozin 25 mg DAILY PO 05/05/24 10:00 05/06/24 10:25 25 MG Gabapentin 800 mg QID PO 05/04/24 18:00 05/06/24 05:06 800 MG Hydroxyzine Pamoate 50 mg HS PO 05/04/24 22:00 05/05/24 21:34 50 MG Patient Own Medication 7.5 mg DAILY PO 05/05/24 10:00 Potassium Chloride 20 meq DAILY PO 05/05/24 10:00 05/06/24 10:25 20 MEQ Albuterol 2.5 mg Q4HPRN PRN NEB 05/04/24 15:00 Ipratropium [place] 0.5 mg Q4HPRN PRN NEB 05/04/24 15:00 Budesonide 0.5 mg BID NEB 05/04/24 22:00 Sucralfate 1 gm QID@0600,1130,1700,2200 PO 05/05/24 22:00 05/06/24 10:24 1 GM Laboratory Results Laboratory Tests 05/05/24 05:33 Urinalysis Test 05/04/24 09:48 Urine Color Light-yellow (Yellow) Urine Clarity Clear (Clear) Urine pH 5.5 (5.0-9.0) Urine Specific [place] 1.022 (1.001-1.035) Urine Protein Negative (Negative) Urine Ketones Negative (Negative) Urine Blood Negative /uL (Negative) Urine Nitrite Negative (Negative) Urine Bilirubin Negative (Negative) Urine Urobilinogen Normal mg/dL (Negative) Urine Leukocyte Esterase Negative /uL (Negative) Urine RBC <1 /hpf (0 - 4) Urine Microscopic WBC 1 /HPF (0-5) Urine Squamous Epithelial Cells Few /hpf (<5) Urine Bacteria Mod /hpf (None Seen) H Urine Hyaline Casts Mod /lpf (0 - 2) Urine Mucus Few (None Seen) Urine Glucose Trace mg/dL (Normal) Labs and/or images reviewed: Labs reviewed by me, Image(s) reviewed by me Assessment/Plan Assessment/Plan Noncardiac Chest pain Troponin negative x3, treatment per ACS protocol, cardiology consult for appreciated cardiology recommended CT coronary chest as outpatient History of LBBB since 2021 GERD: Pantoprazole Carafate, GI consult by Dr. Teresa Chavez appreciated Uncontrolled diabetes: Insulin sliding scale Hypertension Rule out Sarcoidosis Asthma Anxiety Arthritis Osteoarthritis History of CVA no deficits Depression Plan discussed with: Patient My Orders Orders - MICHAEL OAKES MD Procedure Category Date Status Time * Cardiology Consult CONS 05/05/24 Transmitted 14:38 * Gi Dvh Electrotyper Helper CONS 05/05/24 Transmitted 16:28 Date of Service: May 06, 2024 Billing Provider: MICHAEL OAKES MD Common Visit Codes: [id number] INP/OBS CARE(HIGH) MICHAEL OAKES MD May 06, 2024 12:37
--- NOTE | 2024-05-06 12:45 | DVHDS2 ---
Discharge Summary Date of Admission May 04, 2024 at 14:22 Date of Discharge: May 06, 2024 Admitting Diagnosis Chest pain Wounds: None Labs/Diagnostic Data: Laboratory Results Test 05/06/24 12:08 05/06/24 05:40 05/05/24 05:33 05/04/24 09:48 POC Glucose 224 mg/dl (70-106) Troponin I High Sensitivity < 3 ng/L (</=34) White Blood Count 4.2 10^3/uL (4.4-10.8) Red Blood Count 4.00 10^6/uL (4.0-5.20) Hemoglobin 12.9 g/dL (12.2-16.2) Hematocrit 39.8 % (36.0-46.0) Mean Corpuscular Volume 99.5 fL (80.0-100.0) Mean Corpuscular Hemoglobin 32.3 pg (28.0-32.0) Mean Corpuscular Hemoglobin Concent 32.5 g/dL (32.0-36.0) Red Cell Distribution Width 13.3 % (11.8-14.3) Platelet Count 224 10^3/uL (140-450) Mean Platelet Volume 8.2 fL (6.9-10.8) Neutrophils (%) (Auto) 44.9 % (37.0-80.0) Lymphocytes (%) (Auto) 42.3 % (10.0-50.0) Monocytes (%) (Auto) 10.7 % (0.0-12.0) Eosinophils (%) (Auto) 1.8 % (0.0-7.0) Basophils (%) (Auto) 0.3 % (0.0-2.0) Neutrophils # (Auto) 1.9 10 ^3/uL (1.6-8.6) Lymphocytes # (Auto) 1.8 10 ^3/uL (0.4-5.4) Monocytes # (Auto) 0.4 10 ^3/uL (0-1.3) Eosinophils # (Auto) 0.1 10 ^3/uL (0-0.8) Basophils # (Auto) 0 10 ^3/uL (0-0.2) Nucleated Red Blood Cells 0.1 % Sodium Level 145 mmol/L (136-145) Potassium Level 3.6 mmol/L (3.5-5.1) Chloride Level 108 mmol/L (98-107) Carbon Dioxide Level 27 mmol/L (20-31) Anion Gap 10 (5-15) Blood Urea Nitrogen 14 mg/dL (9-23) Creatinine 0.73 mg/dL (0.550-1.02) Glomerular Filtration Rate Calc 99 mL/min (>90) BUN/Creatinine Ratio 19.2 (10.0-20.0) Serum Glucose 142 mg/dL (74-106) Calcium Level 9.1 mg/dL (8.7-10.4) Magnesium Level 2.1 mg/dL (1.6-2.6) Urine Color Light-yellow (Yellow) Urine Clarity Clear (Clear) Urine pH 5.5 (5.0-9.0) Urine Specific [place] 1.022 (1.001-1.035) Urine Protein Negative (Negative) Urine Ketones Negative (Negative) Urine Blood Negative /uL (Negative) Urine Nitrite Negative (Negative) Urine Bilirubin Negative (Negative) Urine Urobilinogen Normal mg/dL (Negative) Urine Leukocyte Esterase Negative /uL (Negative) Urine RBC <1 /hpf (0 - 4) Urine Microscopic WBC 1 /HPF (0-5) Urine Squamous Epithelial Cells Few /hpf (<5) Urine Bacteria Mod /hpf (None Seen) Urine Hyaline Casts Mod /lpf (0 - 2) Urine Mucus Few (None Seen) Urine Glucose Trace mg/dL (Normal) Urine Opiates Screen Neg (NEGATIVE) Urine Fentanyl Screen Neg (NEGATIVE) Urine Barbiturates Screen Neg (NEGATIVE) Urine Phencyclidine Screen Neg (NEGATIVE) Urine Amphetamines Screen Neg (NEGATIVE) Urine Benzodiazepines Screen Neg (NEGATIVE) Urine Cocaine Screen Neg (NEGATIVE) Urine Cannabinoids Screen Neg (NEGATIVE) Test 05/04/24 09:32 Hemoglobin A1c 8.5 % A1C (<5.7) Triglycerides Level 265 mg/dL (< 150) Cholesterol Level 126 mg/dL (< 200) LDL Cholesterol 20 mg/dL (< 100) HDL Cholesterol 69 mg/dL (40-59) Thyroid Stimulating Hormone (TSH) 0.90 uIU/mL (0.55-4.78) Other Laboratory Tests 05/05/24 05:33 Brief Hx & Hospital Course: 51-year-old female with a history of hypertension asthma anxiety arthritis CVA no deficiency depression GERD came in complaining of chest pain. Troponin negative x3 treated per ACS protocol cardiology consult with Dr. Mohan. History of left bundle branch block cardiology recommended CT coronary chest as an outpatient to rule out coronary artery disease ruled out sarcoidosis seen by GI Dr. Chavez recommended pantoprazole and Carafate for possible gastritis. Patient has already been taking pantoprazole at home. Prescription given for sucralfate She is asymptomatic at the time of discharge with stable vital signs she was advised to follow up with the primary Dr for ordering CT coronary chest Consults/Reason for consult Cardiology Dr. Mohan Operations or Procedures None Condition at Discharge: Fair Final Diagnosis/Problems List Noncardiac Chest pain Troponin negative x3, treatment per ACS protocol, cardiology consult for appreciated cardiology recommended CT coronary chest as outpatient History of LBBB since 2021 GERD: Pantoprazole Carafate, GI consult by Dr. Teresa Chavez appreciated Uncontrolled diabetes: Insulin sliding scale Hypertension Rule out Sarcoidosis Asthma Anxiety Arthritis Osteoarthritis History of CVA no deficits Depression Discharge Disposition: Home Discharge Instruct/Medications Diet: Cardiac 2g Na,low cholest Activity: Light activity Follow Up/Referral: Follow up with your primary Dr Dr Yeimy Gallardo for ordering CT coronary chest to rule out coronary artery disease and sarcoidosis Follow up with the Cardiology Dr. Mohan in two weeks Continued all your home medications Medications: Sucralfate Transmitted to the pharmacy Reviewed all her previous home medications 35 (Time Taken For discharge summary 35 minutes) Discharge Statement: "Patient was advised to return to the ER or call 911 if any headaches, dizziness, shortness of breath, chest pain, abdominal pain, bleeding, fevers, or worsening of medical condition. Patient was counseled about treatment plan, medications, possible side effects, patientverbalized understanding. All questions were answered to the best of my ability. This discharge took greater then 30 minutes in planning, reviewing documentation, counseling the patient, and discussing with other team members." ASSESSMENT ASSESSMENT Hospital Course Improved Assessment Noncardiac Chest pain Troponin negative x3, treatment per ACS protocol, cardiology consult for appreciated cardiology recommended CT coronary chest as outpatient History of LBBB since 2021 GERD: Pantoprazole Carafate, GI consult by Dr. Teresa Chavez appreciated Uncontrolled diabetes: Insulin sliding scale Hypertension Rule out Sarcoidosis Asthma Anxiety Arthritis Osteoarthritis History of CVA no deficits Depression Date of Service: May 06, 2024 Billing Provider: MICHAEL OAKES MD Common Visit Codes: [id number] INP/OBS CARE(HIGH) MICHAEL OAKES MD May 06, 2024 12:45
[2024-05-06 12:53] VITALS: BP 145/73; PULSE 82; RESP 18; TEMP 98; O2SAT 98
--- NOTE | 2024-05-06 22:20 | DVHPN2 ---
Progress Note - Dictate Date Seen: May 06, 2024 (Late entryTime of visit 12 noon) Medical Necessity Reason Pt with a Central, PICC or Fol: No Subjective No new complaints Patient has no further nausea vomiting abdominal pain or chest pain Patient is requesting a discharge home vital signs Vital Sign Date Time Temp Pulse Resp B/P (MAP) Pulse Ox O2 Delivery O2 Flow Rate FiO2 05/06/24 14:00 138/78 05/06/24 12:53 98.0 82 18 98 98.0 05/06/24 08:00 Room Air* 0 21 Total Intake and Output 05/05/24 05/05/24 05/06/24 15:00 23:00 07:00 Intake Total 1650 ml 800 ml Balance 1650 ml 800 ml objective General Appearance: Alert, Oriented X3, Cooperative, No acute distress HEENT: Atraumatic, PERRLA, EOMI, Mucous membr. moist/pink Respiratory: Clear to auscultation, Normal air movement Cardiovascular: Normal S1, Normal S2, No murmurs Abdominal: Normal bowel sounds, Soft, No tenderness, No hepatospenomegaly, No masses Extremities: No clubbing, No cyanosis, No edema, Normal pulses, No tenderness/swelling Skin: No rashes, No breakdown, No significant lesion Neuro: Normal speech, Strength at 5/5 X4 ext, Normal tone, Sensation intact Psych/Mental Status: Mental status NL, Mood NL laboratory and microbiology Laboratory Tests 05/05/24 05:33 Test 05/05/24 05:33 Range/Units Serum Glucose 142 H 74-106 mg/dL Problems(with codes): (1) ST segment abnormality (2) Chest pain of unknown etiology (3) Hypertension (4) Nausea and vomiting Prognosis Plan Discharge planning is in progress Cardiology recommended CT coronary chest as an outpatient to rule out coronary artery disease ruled Patient stated she will follow up with her city marshal at the end of the month and schedule elective endoscopy and a colonoscopy Once again thank you for allowing me to participate in the care of this patient, I will follow this patient with you as needed Plan discussed with: Patient DARLING VIDAL MD May 06, 2024 22:20
--- NOTE | 2024-05-09 17:17 | ECG ---
[facility] Test Date: 2024-05-04 Test Time: 12:29:48 Pat Name: TYESHA MUELLER Department: er Room: [address] [place] [address] Gender: F [employer] Developer: jose manuel : 1970 Requested By: DARWIN QUIÑONES Order Number: [id number] Reading MD: Hao Mohan Measurements Intervals [place] Rate: 87 P: 17 FL: 138 QRS: 117 QRSD: 140 T: -10 QT: 372 QTc: 448 Interpretive Statements Sinus rhythm Consider left ventricular hypertrophy Electronically Signed On 05-09-2024 17:17:32 PST by Hao Mohan Please click the below link to view image of tracing.
== END 2024-05-06 15:00 | disposition home or self-care (01) | DRG 203 ==
LOC: ER 09:26 → OVERFLOW 14:22 → TELE-EAST 22:35
PROVIDERS: ADMIT Family Medicine; ATTEND Family Medicine
DX: M94.0 Chondrocostal junction syndrome [Tietze] (principal); N17.0 Acute kidney failure with tubular necrosis; E11.65 Type 2 diabetes mellitus with hyperglycemia; I44.7 Left bundle-branch block, unspecified; I16.0 Hypertensive urgency; E66.9 Obesity, unspecified; E78.5 Hyperlipidemia, unspecified; F32.A Depression, unspecified; F41.9 Anxiety disorder, unspecified; I10 Essential (primary) hypertension; J45.909 Unspecified asthma, uncomplicated; K44.9 Diaphragmatic hernia without obstruction or gangrene; Z79.02 Long term (current) use of antithrombotics/antiplatelets; Z79.4 Long term (current) use of insulin; Z82.49 Family history of ischemic heart disease and other diseases of the circulatory system; Z82.5 Family history of asthma and other chronic lower respiratory diseases; Z83.3 Family history of diabetes mellitus; Z86.73 Personal history of transient ischemic attack (TIA), and cerebral infarction without residual deficits; Z98.42 Cataract extraction status, left eye; Z98.41 Cataract extraction status, right eye; Z98.891 History of uterine scar from previous surgery; Z98.85 Transplanted organ removal status; Z90.49 Acquired absence of other specified parts of digestive tract; Z79.51 Long term (current) use of inhaled steroids; Z79.82 Long term (current) use of aspirin; Z79.899 Other long term (current) drug therapy
CPT/HCPCS: 36415; 71045; 80048; 80061; 80307; 81001; 82962; 83036; 83735; 84443; 84484; 85025; 93005; 93306; 94640; 99291; G0378; J1815; J2405

== ENCOUNTER 2024-07-25 09:46 | Inpatient (IN) | payer MEDICAID ==
[~2024-07-25] VITALS: Ht 144.8 cm; Wt 60.0 kg
--- NOTE | 2024-07-25 10:03 | ED.PDOC ---
History of Present Illness HPI Comments 53-year-old female brought by paramedics because of chest pain which started at 7:30 a.m. this morning. Patient has a history of esophageal disorder for which she has not been unable to tolerate liquid or solid food for the past several months. She has an appointment with her weight trainer few weeks from now. She does have a history of diabetes neuropathy CVA. She is able to move all extremities. States that chest pain she is experiencing his 10/10 with radiation to the left arm. Denies any other symptoms. Chief Complaint: Chest Pain Time Seen by MD: 09:53 Primary Care Provider: DASHAWN Reviewed Notes: Nurses Notes, Medications, Allergies Allergies: Coded Allergies: NO KNOWN ALLERGIES (Unverified , 03/24/11) Home Meds Active Scripts Famotidine (PEPCID TABLET) 20 Mg Tb, 1 TAB PO BID PRN for 30 Days, #60 TAB 3 Refills Prov:HILARIO REAL MD 12/29/23 Ibuprofen Micronized (MOTRIN TABLET) 600 Mg Tb, 600 MG PO TID PRN for 7 Days, #21 TAB *Black box warning-NSAIDS can increase risk of GA & hypertension, GI irritation, ulceration, bleed, perferation. Do not use post cardiac surgery. Use short duration/lowest effective dose. Prov:HILARIO REAL MD 12/29/23 Clindamycin HCl (Clindamycin Hydrochloride) 300 Mg Cap, 300 MG PO QID for 7 Days, #28 CAP Prov:HILARIO REAL MD 12/29/23 Reported Medications Hydroxyzine Hcl (Hydroxyzine Hcl) 50 Mg Tab, 50 MG PO HS, TAB 12/25/23 Umeclidinium [place] (Incruse Ellipta) 62.5 Mcg/Inh Inh, 1 PUFF IN PRN for SHOR TNESS OF BREATH, INHALER 12/25/23 Albuterol Sulfate (VENTOLIN MDI) 90 Mcg Ih, 2 PUFF IN PRN for SHORTNESS OF BREATH, INH 12/25/23 Artificial Tear Solution (ARTIFICIAL TEARS) Tears Blaire, 1 DROP EACHEYE QID for DRY EYES, ML 12/25/23 Latanoprost (LATANOPROST) 0.005 % Blaire, 0.005 % OP HS, ML 12/25/23 Tramadol Hcl (Tramadol Hcl) 50 Mg Tab, 1 TAB PO TID 12/25/23 Semaglutide (Ozempic) 4 Mg/3 Ml Inj, 0.1 UNIT SC QWEEKLY 12/25/23 Insulin Glargine (Insulin Glargine Solostar) 300 Unit/Ml Inj, 40 UNIT SC QAM 12/25/23 Insulin Lispro (Humalog Kwikpen) 100 Unit/Ml Inj, 8-12 UNITS SC TIDBM 12/25/23 Trazodone HCl (Trazodone Hydrochloride) 50 Mg Tab, 50 MG PO HS, TAB 12/24/23 Gabapentin (Gabapentin) 800 Mg Tab, 1 TAB PO QID 12/24/23 Empagliflozin (Jardiance) 25 Mg Tab, 1 TAB PO DAILY 12/24/23 Clopidogrel Bisulfate (CLOPIDOGREL) 75 Mg Tab, 1 TAB PO DAILY 12/24/23 Atorvastatin Calcium (ATORVASTATIN CALCIUM) 40 Mg Tab, 1 TAB PO HS 12/24/23 Furosemide (Furosemide) 40 Mg Tab, 1 TAB PO BID 12/27/21 Lisinopril (Lisinopril) 5 Mg Tab, 1 TAB PO DAILY 12/27/21 Potassium Chloride (K-Tab) 20 Meq Tab, 1 TAB PO DAILY 12/27/21 Pantoprazole Sodium Sesquihydr (Pantoprazole Sodium) 40 Mg Tab, 1 TAB PO DAILY 12/27/21 Meloxicam (Meloxicam) 15 Mg Tab, 7.5 MG PO DAILY, #30 TAB 07/01/16 Aspirin (ASPIRIN 81) 81 Mg Tab, 81 MG PO DAILY, TAB 11/10/14 Information Source: Patient, Emergency Med Personnel Mode of Arrival: EMS Severity: Moderate Timing: Hours Duration: Since onset Past Medical History PAST MEDICAL HISTORY: Anxiety, Arthritis, Depression, DM, High Lipids, TIA Surgical History: Cholecystectomy, 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 ATTENDANT History: No Pertinent BISTRO ATTENDANT History Family History Family History: Unknown Social History Smoker: Non-Smoker Alcohol: Occasionally Drugs: Denies Drug Use Lives In: Home Constitutional: denies: chills, diaphoresis, fatigue, fever, malaise, sweats, weakness, others EENTM: denies: blurred vision, double vision, ear bleeding, ear discharge, ear drainage, ear pain, ear ringing, eye pain, eye redness, hearing loss, mouth pain, mouth swelling, nasal discharge, nose bleeding, nose congestion, nose pain, photophobia, tearing, throat pain, throat swelling, voice changes, others Respiratory: denies: cough, hemoptysis, orthopnea, SOB at rest, shortness of breath, SOB with excertion, stridor, wheezing, others Cardiovascular: reports: chest pain; denies: dizzy spells, diaphoresis, Dyspnea on exertion, edema, irregular heart beat, left arm pain, lightheadedness, palpitations, PND, syncope, others Gastrointestinal: denies: abdomen distended, abdominal pain, blood streaked bowels, constipated, diarrhea, dysphagia, difficulty swallowing, hematemesis, melena, nausea, poor appetite, poor fluid intake, rectal bleeding, rectal pain, vomiting, others Genitourinary: denies: abnormal vagina bleeding, burning, dyspareunia, dysuria, flank pain, frequency, hematuria, incontinence, pain, , vagina discharge, urgency, others Neurological: denies: dizziness, fainting, headache, left sided numbness, left sided weakness, numbness, paresthesia, pre-existing deficit, right sided nu mbness, right sided weakness, seizure, speech problems, tingling, tremors, weakness, others Musculoskeletal: denies: back pain, gout, joint pain, joint swelling, muscle pain, muscle stiffness, neck pain, others Integumetry: denies: bruises, change in color, change in hair/nails, dryness, laceration, lesions, lumps, rash, wounds, others Allergic/Immunocompromised: denies: Difficulty Healing, Frequent Infections, Hives, Itching, others Hematologic/Lymphatic: denies: anemia, blood clots, easy bleeding, easy bruising, swollen glands, others Endocrine: denies: excessive hunger, excessive sweating, excessive thirst, excessive urination, flushing, intolerance to cold, intolerance to heat, unexplained weight gain, unexplained weight loss, others Psychiatric: denies: anxiety, bipolar disorder, depression, hopeless, panic disorder, schizophrenia, sleepless, suicidal, others Physical Exam General Appearance: Moderate Distress HEENT: Normal ENT Inspection, Pharynx Normal, TMs Normal Neck: Full Range of Motion, Non-Tender, Normal, Normal Inspection Respiratory: Chest Non-Tender, Lungs Clear, No Accessory Muscle Use, No Respiratory Distress, Normal Breath Sounds Cardiovascular: No Edema, No JVD, No Murmur, No Gallop, Normal Peripheral Pulses, Regular Rate/Rhythm Breast Exam: Deferred Gastrointestinal: No Organomegaly, Non Tender, No Pulsatile Mass, Normal Bowel Sounds, Soft Genitalia: Deferred Pelvic: Deferred Rectal: Deferred Extremities: No calf tenderness, Normal capillary refill, Normal inspection, Normal range of motion, Non-tender, No pedal edema Musculoskeletal : Apperance: Normal Neurologic: Alert, athletic agent II-XII nml as Tested, No Motor Deficits, Normal Affect, Normal Mood, No Sensory Deficits Cerebellar Function: NOT DONE Reflexes: NOT DONE Skin: Dry, Normal Color, Warm Peripheral Pulses: 3+ Radial (R), 3+ Radial (L) Lymphatic: No Adenopathy Was a procedure done? Was a procedure done?: No EKG EKG : Pulse Rate (adult): 79 Cardiac Rhythm: NSR Differential Dx Considerations may include: Chest pain Electrolyte imbalance X-Ray, Labs, Meds, VS Vital Signs Date Time Temp Pulse Resp B/P (MAP) Pulse Ox O2 Delivery O2 Flow Rate FiO2 07/25/24 11:11 77 07/25/24 10:53 78 19 135/77 (96) 98 07/25/24 10:53 78 19 98 Nasal Cannula* 3 32 07/25/24 10:03 79 07/25/24 09:59 98.1 83 16 123/81 (95) 97 98.1 07/25/24 09:52 79 Lab Test 07/25/24 10:13 Range/Units White Blood Count 3.7 L 4.4-10.8 10^3/uL Red Blood Count 4.04 4.0-5.20 10^6/uL Hemoglobin 13.3 12.2-16.2 g/dL Hematocrit 39.1 36.0-46.0 % Mean Corpuscular Volume 96.8 80.0-100.0 fL Mean Corpuscular Hemoglobin 33.0 H 28.0-32.0 pg Mean Corpuscular Hemoglobin Concent 34.0 32.0-36.0 g/dL Red Cell Distribution Width 15.0 H 11.8-14.3 % Platelet Count 247 140-450 10^3/uL Mean Platelet Volume 8.2 6.9-10.8 fL Neutrophils (%) (Auto) 48.6 37.0-80.0 % Lymphocytes (%) (Auto) 39.9 10.0-50.0 % Monocytes (%) (Auto) 9.7 0.0-12.0 % Eosinophils (%) (Auto) 1.4 0.0-7.0 % Basophils (%) (Auto) 0.4 0.0-2.0 % Neutrophils # (Auto) 1.8 1.6-8.6 10 ^3/uL Lymphocytes # (Auto) 1.5 0.4-5.4 10 ^3/uL Monocytes # (Auto) 0.4 0-1.3 10 ^3/uL Eosinophils # (Auto) 0.1 0-0.8 10 ^3/uL Basophils # (Auto) 0 0-0.2 10 ^3/uL Nucleated Red Blood Cells 0.2 % D-Dimer, Quantitative 0.30 0.0-0.49 mg/L FEU Sodium Level 140 136-145 mmol/L Potassium Level 4.1 3.5-5.1 mmol/L Chloride Level 103 98-107 mmol/L Carbon Dioxide Level 26 20-31 mmol/L Anion Gap 11 5-15 Blood Urea Nitrogen 13 9-23 mg/dL Creatinine 0.87 0.550-1.02 mg/dL Glomerular Filtration Rate Calc 80 >90 mL/min BUN/Creatinine Ratio 14.9 10.0-20.0 Serum Glucose 146 H 74-106 mg/dL Calcium Level 9.3 8.7-10.4 mg/dL Troponin I High Sensitivity < 3 L </=34 ng/L Current Medications Medications (Trade) Dose Ordered Sig/Kevin Route Start Time Stop Time Status Last Admin Belladonna Alkaloids/ Phenobarbital ( Elixir) 10 ml ONCE ONCE PO 07/25/24 10:15 07/25/24 10:16 DC 07/25/24 10:17 Al Hydrox/Mg Hydrox/Simethicone (Maalox Plus) 30 ml ONCE ONCE PO 07/25/24 10:15 07/25/24 10:16 DC 07/25/24 10:17 Lidocaine HCl (Xylocaine 2% Viscous) 15 ml ONCE ONCE PO 07/25/24 10:15 07/25/24 10:16 DC 07/25/24 10:17 Acetaminophen/ Hydrocodone Bitart ([place] 10/325MG Tab) 1 tab ONCE ONCE PO 07/25/24 11:15 07/25/24 11:16 DC 07/25/24 11:23 Patient alert. Came in for chest pain. Vitals stable. Answering questions pain Was given GI cocktail. Reviewed her previous visit. EKG reviewed does not show any acute changes left bundle branch block. Chest pain with left bundle we will plan she will need cardiology consultation. Was given aspirin. Continue cardiac monitoring. Time of 1ST Reevaluation: 10:01 Reevaluation 1ST: Unchanged Patient Education/Counseling: Diagnosis, Treatment, Prognosis Family Education/Counseling: No Family Present Departure 1 Departure Time of Disposition: 10:02 Impression: Primary Impression: Chest pain of unknown etiology Disposition: ADMITTED INPATIENT Admit to: Med Surg Condition: Guarded Critical Care Note Critical Care Time?: Yes (90 min-critical care time only) Critical care comment: Continue cardiac monitoring Stability Stability form required: No Heart Score Heart Score: Heart Score Response (Comments) Value History Slightly Suspicious 0 EKG Normal 0 Age 45-64 1 Risk Factors >3 or Hx ASHD 2 Troponin Normal limit 0 Total 3 ANGELO HEARN MD July 25, 2024 10:03
[2024-07-25] MEDS: MAALOX PLUS or MAALOX 30 ML PO ONE (10:17)
[2024-07-25] MEDS: LIDOCAINE VISCOUS 2% 15ML UD PO ONE (10:17)
[2024-07-25] MEDS: DONNATAL 5ml ORAL Elix (BELLADONNA ALK-PHENOBARB) PO ONE (10:17)
[2024-07-25 10:47] LABS: Chloride 103 mmol/L (98-107); Potassium 4.1 mmol/L (3.5-5.1); Sodium 140 mmol/L (136-145)
[2024-07-25 10:48] LABS: Anion Gap 11 (5-15); Calcium 9.3 mg/dL (8.7-10.4); Carbon Dioxide 26 mmol/L (20-31)
[2024-07-25 10:53] VITALS: PULSE 78; RESP 19; O2SAT 98
[2024-07-25 10:53] LABS: BUN/Creatinine Ratio 14.9 (10.0-20.0); Blood Urea Nitrogen 13 mg/dL (9-23)
[2024-07-25 11:04] LABS: Glucose 146 mg/dL (74-106)
[2024-07-25 11:06] LABS: Basophils # (auto) 0 10 ^3/uL (0-0.2); Basophils % (auto) 0.4 % (0.0-2.0); Eosinophils # (auto) 0.1 10 ^3/uL (0-0.8); Eosinophils % (auto) 1.4 % (0.0-7.0); Hematocrit 39.1 % (36.0-46.0); Hemoglobin 13.3 g/dL (12.2-16.2); Lymphocytes # (auto) 1.5 10 ^3/uL (0.4-5.4); Lymphocytes % (auto) 39.9 % (10.0-50.0); Mean Corpuscular Volume 96.8 fL (80.0-100.0); Monocytes # (auto) 0.4 10 ^3/uL (0-1.3); Monocytes % (auto) 9.7 % (0.0-12.0); Neutrophils # (auto) 1.8 10 ^3/uL (1.6-8.6); Neutrophils % (auto) 48.6 % (37.0-80.0); Nucleated Red Blood Cells % 0.2 %; Platelet Count (auto) 247 10^3/uL (140-450); Red Blood Cells 4.04 10^6/uL (4.0-5.20); White Blood Cell 3.7 10^3/uL (4.4-10.8)
[2024-07-25] MEDS: HYDROcodone-ACET 10/325MG TAB PO ONE (11:23)
[2024-07-25] MEDS ORDERED: MORPHINE SULFATE INJ 2 MG/ml SYRG IV PRN (14:45)
[2024-07-25] MEDS ORDERED: DOCUSATE SOD 100 MG CAP PO PRN (14:45)
[2024-07-25] MEDS ORDERED: HYDROcodone-ACET 5/325MG TAB PO PRN (14:45)
[2024-07-25] MEDS ORDERED: ACETAMINOPHEN 325 MG TAB PO PRN (14:45)
[2024-07-25] MEDS ORDERED: NITROGLYCERIN 0.4 MG SL TAB SL PRN (14:45)
[2024-07-25] MEDS ORDERED: FAMOTIDINE 20 MG TAB PO PRN (14:45)
[2024-07-25] MEDS ORDERED: ONDANSETRON HCL 4 MG/2 ML VIAL IV PRN (14:45)
--- NOTE | 2024-07-25 14:58 | DVHHP2 ---
Admitting Diagnosis: Chest pain History of Present Illness 53-year-old female brought by paramedics because of chest pain which started at 7:30 a.m. this morning. Patient has a history of esophageal disorder for which she has not been unable to tolerate liquid or solid food for the past several months. 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 She does have a history of diabetes neuropathy CVA. She is able to move all extremities. States that chest pain she is experiencing his 10/10 with radiation to the left arm. Denies any other symptoms. PAST MEDICAL HISTORY: Anxiety, Arthritis, Depression, DM, High Lipids, TIA Surgical History: Cholecystectomy, TURF KEEPER History: No Pertinent TURF KEEPER History Family History Family History: Unknown Social History Smoker: Non-Smoker Alcohol: Occasionally Drugs: Denies Drug Use Lives In: Home Patient Family History: FHx: chronic obstructive pulmonary disease G8 MOTHER Family history: Diabetes mellitus G8 MOTHER Family history: Glaucoma G8 FATHER Family history: Hypertension G8 MOTHER Heart murmur grandma No Family History of: Family history: Congenital anomaly Allergies: Coded Allergies: NO KNOWN ALLERGIES (Unverified , 03/24/11) Home Meds Active Scripts Famotidine (PEPCID TABLET) 20 Mg Tb, 1 TAB PO BID PRN for 30 Days, #60 TAB 3 Refills Prov:HILARIO REAL MD 12/29/23 Ibuprofen Micronized (MOTRIN TABLET) 600 Mg Tb, 600 MG PO TID PRN for 7 Days, #21 TAB *Black box warning-NSAIDS can increase risk of IA & hypertension, GI irritation, ulceration, bleed, perferation. Do not use post cardiac surgery. Use short duration/lowest effective dose. Prov:HILARIO REAL MD 12/29/23 Clindamycin HCl (Clindamycin Hydrochloride) 300 Mg Cap, 300 MG PO QID for 7 Days, #28 CAP Prov:HILARIO REAL MD 12/29/23 Reported Medications Hydroxyzine Hcl (Hydroxyzine Hcl) 50 Mg Tab, 50 MG PO HS, TAB 12/25/23 Umeclidinium [place] (Incruse Ellipta) 62.5 Mcg/Inh Inh, 1 PUFF IN PRN for SHORTNESS OF BREATH, INHALER 12/25/23 Albuterol Sulfate (VENTOLIN MDI) 90 Mcg Ih, 2 PUFF IN PRN for SHORTNESS OF BREATH, INH 10/23/24 Artificial Tear Solution (ARTIFICIAL TEARS) Tears Blaire, 1 DROP EACHEYE QID for DRY EYES, ML 12/25/23 Latanoprost (LATANOPROST) 0.005 % Blaire, 0.005 % OP HS, ML 12/25/23 Tramadol Hcl (Tramadol Hcl) 50 Mg Tab, 1 TAB PO TID 12/25/23 Semaglutide (Ozempic) 4 Mg/3 Ml Inj, 0.1 UNIT SC QWEEKLY 12/25/23 Insulin Glargine (Insulin Glargine Solostar) 300 Unit/Ml Inj, 40 UNIT SC QAM 12/25/23 Insulin Lispro (Humalog Kwikpen) 100 Unit/Ml Inj, 8-12 UNITS SC TIDBM 12/25/23 Trazodone HCl (Trazodone Hydrochloride) 50 Mg Tab, 50 MG PO HS, TAB 12/24/23 Gabapentin (Gabapentin) 800 Mg Tab, 1 TAB PO QID 12/24/23 Empagliflozin (Jardiance) 25 Mg Tab, 1 TAB PO DAILY 12/24/23 Clopidogrel Bisulfate (CLOPIDOGREL) 75 Mg Tab, 1 TAB PO DAILY 12/24/23 Atorvastatin Calcium (ATORVASTATIN CALCIUM) 40 Mg Tab, 1 TAB PO HS 12/24/23 Furosemide (Furosemide) 40 Mg Tab, 1 TAB PO BID 12/27/21 Lisinopril (Lisinopril) 5 Mg Tab, 1 TAB PO DAILY 12/27/21 Potassium Chloride (K-Tab) 20 Meq Tab, 1 TAB PO DAILY 12/27/21 Pantoprazole Sodium Sesquihydr (Pantoprazole Sodium) 40 Mg Tab, 1 TAB PO DAILY 12/27/21 Meloxicam (Meloxicam) 15 Mg Tab, 7.5 MG PO DAILY, #30 TAB 07/01/16 Aspirin (ASPIRIN 81) 81 Mg Tab, 81 MG PO DAILY, TAB 11/10/14 Current Medications Current Medications Medications (Trade) Dose Ordered Sig/Kevin Route PRN Reason Start Time Stop Time Status Last Admin Sodium Chloride (Saline Lock Ns) 10 ml Q8HR IV 07/25/24 22:00 UNV Docusate Sodium (Colace Capsule) 100 mg BIDPRN PRN PO FOR CONSTIPATION 07/25/24 14:45 UNV Acetaminophen (Tylenol Tablet) 650 mg Q6HP PRN PO PAIN SCALE 1-3 OR TEMP>100.4 07/25/24 14:45 UNV Acetaminophen/ Hydrocodone Bitart ([place] 5/325MG Tab) 1 tab Q4HP PRN PO MODERATE PAIN (4-6 PAIN SCALE) 07/25/24 14:45 UNV Ondansetron HCl (Zofran) 4 mg Q4HP PRN IV NAUSEA / VOMITING 07/25/24 14:45 UNV Enoxaparin Sodium (Lovenox) 40 mg DAILY SC 07/26/24 10:00 UNV Nitroglycerin (Ntrostat Sublingual) 0.4 mg Q5MINP PRN SL FOR CHEST PAIN 07/25/24 14:45 UNV Morphine Sulfate 2 mg Q30M PRN IV FOR CHEST PAIN 07/25/24 14:45 UNV Aspirin (Ecotrin Enteric Coated Tablet) 81 mg DAILY PO 07/26/24 10:00 UNV Clopidogrel Bisulfate (Plavix) 75 mg DAILY PO 07/26/24 10:00 UNV Famotidine (Pepcid Tablet) 20 mg BID PRN PO gerd 07/25/24 14:45 UNV Furosemide (Lasix Tablet) 40 mg BID PO 07/25/24 22:00 UNV Lisinopril (Zestril Tablet) 5 mg DAILY PO 07/26/24 10:00 UNV Pantoprazole Sodium (Protonix Tablet) 40 mg DAILY PO 07/26/24 10:00 UNV Trazodone HCl (Desyrel) 50 mg HS PO 07/25/24 22:00 UNV Patient Own Medication 1 drop QID EACHEYE 07/25/24 18:00 UNV Patient Own Medication 1 tab HS PO 07/25/24 22:00 UNV Patient Own Medication 1 tab DAILY PO 07/26/24 10:00 UNV Patient Own Medication 1 tab QID PO 07/25/24 18:00 UNV Vital Signs Vital Signs Date Time Temp Pulse Resp B/P (MAP) Pulse Ox O2 Delivery O2 Flow Rate FiO2 07/25/24 12:30 98.3 91 18 145/78 (100) 98 98.3 07/25/24 10:53 Nasal Cannula* 3 32 Physical Exam Generally-54 years old woman, well nourished well developed. Moderate distress HEENT-atraumatic, normocephalic Heart-regular rate and rhythm Lungs clear to auscultate Abdomen soft nontender nondistended Musculoskeletal-no edema cyanosis Neuro-AO x3, no focal deficits Results Labs Test 07/25/24 10:13 Range/Units White Blood Count 3.7 L 4.4-10.8 10^3/uL Red Blood Count 4.04 4.0-5.20 10^6/uL Hemoglobin 13.3 12.2-16.2 g/dL Hematocrit 39.1 36.0-46.0 % Mean Corpuscular Volume 96.8 80.0-100.0 fL Mean Corpuscular Hemoglobin 33.0 H 28.0-32.0 pg Mean Corpuscular Hemoglobin Concent 34.0 32.0-36.0 g/dL Red Cell Distribution Width 15.0 H 11.8-14.3 % Platelet Count 247 140-450 10^3/uL Mean Platelet Volume 8.2 6.9-10.8 fL Neutrophils (%) (Auto) 48.6 37.0-80.0 % Lymphocytes (%) (Auto) 39.9 10.0-50.0 % Monocytes (%) (Auto) 9.7 0.0-12.0 % Eosinophils (%) (Auto) 1.4 0.0-7.0 % Basophils (%) (Auto) 0.4 0.0-2.0 % Neutrophils # (Auto) 1.8 1.6-8.6 10 ^3/uL Lymphocytes # (Auto) 1.5 0.4-5.4 10 ^3/uL Monocytes # (Auto) 0.4 0-1.3 10 ^3/uL Eosinophils # (Auto) 0.1 0-0.8 10 ^3/uL Basophils # (Auto) 0 0-0.2 10 ^3/uL Nucleated Red Blood Cells 0.2 % D-Dimer, Quantitative 0.30 0.0-0.49 mg/L FEU Sodium Level 140 136-145 mmol/L Potassium Level 4.1 3.5-5.1 mmol/L Chloride Level 103 98-107 mmol/L Carbon Dioxide Level 26 20-31 mmol/L Anion Gap 11 5-15 Blood Urea Nitrogen 13 9-23 mg/dL Creatinine 0.87 0.550-1.02 mg/dL Glomerular Filtration Rate Calc 80 >90 mL/min BUN/Creatinine Ratio 14.9 10.0-20.0 Serum Glucose 146 H 74-106 mg/dL Calcium Level 9.3 8.7-10.4 mg/dL Troponin I High Sensitivity < 3 L </=34 ng/L Primary Diagnosis Chest pain rule out ACS Plan EKG shows cyanosis with a left bundle-branch block Troponin negative Check echo of the heart rule out ACS Cardiac diet NPO after midnight Nuclear stress test to assess for ischemic cardiomyopathy Pain control Full code Lovenox for DVT prophylaxis PPI for GI prophylaxis Plan discussed with: Patient Date of Service: July 25, 2024 Billing Provider: NEERAJ TOBIAS MD Common Visit Codes: [id number] INP/OBS CARE (HIGH) NEERAJ TOBIAS MD July 25, 2024 14:58
[2024-07-25] MEDS: ARTIFICIAL TEARS 15ml EACHEYE SCH (18:00)
[2024-07-25] MEDS: GABAPENTIN 400 MG CAP PO SCH (18:16)
[2024-07-25] MEDS ORDERED: DEXTROSE (50%) 50ML SYRG IV PRN (20:15)
[2024-07-25 20:42] VITALS: BP 133/69; PULSE 80; RESP 18; TEMP 98.1; O2SAT 95
[2024-07-25] MEDS: ATORVASTATIN 20 MG TAB PO SCH (21:16)
[2024-07-25] MEDS: SODIUM CHLOR 0.9% PF (SALINE LOCK) 10ML VIAL/SYR IV SCH (21:17)
[2024-07-25] MEDS: FUROSEMIDE 40 MG TAB PO SCH (21:17)
[2024-07-25] MEDS: traZODone HCL 50 MG TAB PO SCH (21:18)
[2024-07-25] MEDS: ACCU-CHEK COMFORT CURVE STRIP VI SCH (23:15)
[2024-07-25] MEDS: InsuLIN REG 1unit/0.01ml Soln (100units/ml) SC SCH (23:16)
[2024-07-25 23:18] VITALS: BP 131/66; PULSE 85; RESP 18; TEMP 98.1; O2SAT 95
[2024-07-26 05:00] VITALS: BP 126/71; PULSE 72; RESP 18; TEMP 97.8; O2SAT 96
[2024-07-26 06:25] LABS: Basophils # (auto) 0 10 ^3/uL (0-0.2); Basophils % (auto) 0.6 % (0.0-2.0); Eosinophils # (auto) 0.1 10 ^3/uL (0-0.8); Eosinophils % (auto) 3.8 % (0.0-7.0); Hematocrit 39.5 % (36.0-46.0); Lymphocytes # (auto) 1.7 10 ^3/uL (0.4-5.4); Mean Corpuscular Hemoglobin 32.9 pg (28.0-32.0); Mean Corpuscular Hgb Conc. 33.1 g/dL (32.0-36.0); Mean Corpuscular Volume 99.5 fL (80.0-100.0); Monocytes # (auto) 0.3 10 ^3/uL (0-1.3); Monocytes % (auto) 9.8 % (0.0-12.0); Neutrophils # (auto) 0.8 10 ^3/uL (1.6-8.6); Neutrophils % (auto) 27.4 % (37.0-80.0); Nucleated Red Blood Cells % 0.3 %; Platelet Count (auto) 213 10^3/uL (140-450); Red Blood Cells 3.97 10^6/uL (4.0-5.20); Red Cell Distribution Width 15.1 % (11.8-14.3)
[2024-07-26 06:27] LABS: Lymphocytes % (auto) 58.4 % (10.0-50.0)
[2024-07-26 06:55] LABS: Albumin 3.5 g/dL (3.2-4.8); Alkaline Phosphatase 64 U/L (46-116); Anion Gap 9 (5-15); Aspartate Aminotransferase 37 U/L (13-40); BUN/Creatinine Ratio 11.6 (10.0-20.0); Bilirubin, Total 0.8 mg/dL (0.2-1.0); Calcium 9.2 mg/dL (8.7-10.4); Carbon Dioxide 25 mmol/L (20-31); Chloride 107 mmol/L (98-107); Potassium 4.1 mmol/L (3.5-5.1); Sodium 141 mmol/L (136-145)
[2024-07-26 07:11] LABS: Alanine Aminotransferase 42 U/L (7-40); Blood Urea Nitrogen 8 mg/dL (9-23); Glucose 175 mg/dL (74-106)
[2024-07-26 08:31] VITALS: BP 110/68; PULSE 73; TEMP 98.3; O2SAT 96
[2024-07-26] MEDS ORDERED: ASPirin-EC 81 mg tab PO SCH (10:00)
[2024-07-26] MEDS ORDERED: EMPAGLIFLOZIN 10 MG TAB PO SCH (10:00)
[2024-07-26] MEDS ORDERED: LISINOPRIL 5 MG TAB PO SCH (10:00)
[2024-07-26] MEDS ORDERED: CLOPIDOGREL BISULFATE 75 MG TAB PO SCH (10:00)
[2024-07-26] MEDS ORDERED: ENOXAPARIN SOD 40 MG/0.4 ML SYRINGE SC SCH (10:00)
[2024-07-26] MEDS ORDERED: PANTOPRAZOLE 40 MG TAB PO SCH (10:00)
--- NOTE | 2024-07-26 17:27 | DVHDS2 ---
Discharge Summary Date of Admission July 25, 2024 at 14:33 Date of Discharge: July 26, 2024 Labs/Diagnostic Data: Laboratory Results Test 07/26/24 08:21 07/26/24 06:12 07/25/24 10:13 POC Glucose 127 mg/dl (70-106) White Blood Count 3.0 10^3/uL (4.4-10.8) Red Blood Count 3.97 10^6/uL (4.0-5.20) Hemoglobin 13.0 g/dL (12.2-16.2) Hematocrit 39.5 % (36.0-46.0) Mean Corpuscular Volume 99.5 fL (80.0-100.0) Mean Corpuscular Hemoglobin 32.9 pg (28.0-32.0) Mean Corpuscular Hemoglobin Concent 33.1 g/dL (32.0-36.0) Red Cell Distribution Width 15.1 % (11.8-14.3) Platelet Count 213 10^3/uL (140-450) Mean Platelet Volume 7.9 fL (6.9-10.8) Neutrophils (%) (Auto) 27.4 % (37.0-80.0) Lymphocytes (%) (Auto) 58.4 % (10.0-50.0) Monocytes (%) (Auto) 9.8 % (0.0-12.0) Eosinophils (%) (Auto) 3.8 % (0.0-7.0) Basophils (%) (Auto) 0.6 % (0.0-2.0) Neutrophils # (Auto) 0.8 10 ^3/uL (1.6-8.6) Lymphocytes # (Auto) 1.7 10 ^3/uL (0.4-5.4) Monocytes # (Auto) 0.3 10 ^3/uL (0-1.3) Eosinophils # (Auto) 0.1 10 ^3/uL (0-0.8) Basophils # (Auto) 0 10 ^3/uL (0-0.2) Nucleated Red Blood Cells 0.3 % Sodium Level 141 mmol/L (136-145) Potassium Level 4.1 mmol/L (3.5-5.1) Chloride Level 107 mmol/L (98-107) Carbon Dioxide Level 25 mmol/L (20-31) Anion Gap 9 (5-15) Blood Urea Nitrogen 8 mg/dL (9-23) Creatinine 0.69 mg/dL (0.550-1.02) Glomerular Filtration Rate Calc 104 mL/min (>90) BUN/Creatinine Ratio 11.6 (10.0-20.0) Serum Glucose 175 mg/dL (74-106) Calcium Level 9.2 mg/dL (8.7-10.4) Total Bilirubin 0.8 mg/dL (0.2-1.0) Aspartate Amino Transferase (AST) 37 U/L (13-40) Alanine Aminotransferase (ALT) 42 U/L (7-40) Alkaline Phosphatase 64 U/L (46-116) Total Protein 6.0 g/dL (5.7-8.2) Albumin 3.5 g/dL (3.2-4.8) D-Dimer, Quantitative 0.30 mg/L FEU (0.0-0.49) Troponin I High Sensitivity < 3 ng/L (</=34) Other Laboratory Tests 07/26/24 06:12 Brief Hx & Hospital Course: 53-year-old female with a known history of esophageal disorder, diabetes mellitus type 2, peripheral neuropathy initially was in the hospital with chest pain eventually patient was monitored on telemetry. Troponins were negative. Patient left against medical advice before completion of workup and treatment. Condition at Discharge: Undetermined Final Diagnosis/Problems List 1. Chest pain rule out MS 2. Esophageal disorder with a difficulty in swallowing food 3. Diabetes mellitus type 2 4. Peripheral neuropathy Patient left against medical advice Discharge Disposition: AMA SNF Discharge Will this Physician continue t: No Discharge Statement: "Patient was advised to return to the ER or call 911 if any headaches, dizziness, shortness of breath, chest pain, abdominal pain, bleeding, fevers, or worsening of medical condition. Patient was counseled about treatment plan, medications, possible side effects, patientverbalized understanding. All questions were answered to the best of my ability. This discharge took greater then 30 minutes in planning, reviewing documentation, counseling the patient, and discussing with other team members." ASSESSMENT ASSESSMENT Assessment Date of Service: July 26, 2024 Billing Provider: CLIFF SCHREIBER MD Common Visit Codes: [id number] DISCH DAY <30MIN CLIFF SCHREIBER MD July 26, 2024 17:26
== END 2024-07-26 09:20 | disposition left against medical advice (07) | DRG 243 ==
LOC: ER 09:46 → EDBD 09:46 → OVERFLOW 14:33
PROVIDERS: ADMIT Internal Medicine; ATTEND Internal Medicine
DX: K21.9 Gastro-esophageal reflux disease without esophagitis (principal); E11.42 Type 2 diabetes mellitus with diabetic polyneuropathy; I44.7 Left bundle-branch block, unspecified; Z53.29 Procedure and treatment not carried out because of patient's decision for other reasons; K22.9 Disease of esophagus, unspecified; R13.10 Dysphagia, unspecified; F41.9 Anxiety disorder, unspecified; Z86.73 Personal history of transient ischemic attack (TIA), and cerebral infarction without residual deficits; Z79.1 Long term (current) use of non-steroidal anti-inflammatories (NSAID); Z79.4 Long term (current) use of insulin; Z79.899 Other long term (current) drug therapy; Z90.49 Acquired absence of other specified parts of digestive tract; Z98.891 History of uterine scar from previous surgery; Z83.3 Family history of diabetes mellitus; Z82.49 Family history of ischemic heart disease and other diseases of the circulatory system
CPT/HCPCS: 36415; 80048; 80053; 82962; 84484; 85025; 85379; 99291; 99292; G0378; J1815

== ENCOUNTER 2025-01-10 15:20 | Inpatient (IN) | payer MEDICAID ==
[~2025-01-10] VITALS: Ht 152.4 cm; Wt 57.0 kg
--- NOTE | 2025-01-10 15:46 | ECG ---
[facility] Test Date: 2025-01-10 Test Time: 15:32:10 Pat Name: TYESHA MUELLER Department: [facility] ED Room: [address] [place] [address] Gender: F Education Rep: josé miguel : 1970 Requested By: EDMOND GONZALEZ Order Number: [id number] Reading MD: Hao Mohan Measurements Intervals [place] Rate: 93 P: 19 NV: 181 QRS: 7 QRSD: 139 T: 119 QT: 324 QTc: 403 Interpretive Statements Sinus rhythm Atrial premature complexes in couplets Left bundle branch block Electronically Signed On 01-11-2025 11:00:30 PST by Hao Mohan Please click the below link to view image of tracing.
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
[2025-01-10] MEDS: SODIUM CHLORIDE 0.9% 1,000 ML IV ONE ×2 (16:01→23:20)
[2025-01-10 16:09] LABS: Base Excess -10.5 mmol/L (-2.0-3.0)
[2025-01-10] MEDS: NOREPINEPHRINE 8 MG/250ML KIT 250 ML IV SCH (16:25)
[2025-01-10 16:28] LABS: Urine Protein, UAD Negative (Negative)
[2025-01-10 16:40] LABS: Hematocrit 35.4 % (36.0-46.0); Hemoglobin 11.5 g/dL (12.2-16.2); Mean Corpuscular Hemoglobin 32.6 pg (28.0-32.0); Mean Corpuscular Volume 100.3 fL (80.0-100.0); Nucleated Red Blood Cells % 0.1 %
[2025-01-10 16:41] LABS: Amphetamine Screen, Urine Neg (NEGATIVE); Barbiturate Scree,Urine Neg (NEGATIVE); Benzodiazephine Screen, Urine Neg (NEGATIVE); Cannabinoid Screen, Urine Neg (NEGATIVE); Cocaine Screen, Urine Pos (NEGATIVE); Opiate Scree,Urine Neg (NEGATIVE); Phencyclidine Screen, Urine Neg (NEGATIVE)
[2025-01-10 16:56] LABS: Alanine Aminotransferase 12 U/L (7-40); Albumin 3.4 g/dL (3.2-4.8); Alkaline Phosphatase 105 U/L (46-116); Anion Gap 6 (5-15); BUN/Creatinine Ratio 11.7 (10.0-20.0); Blood Urea Nitrogen 14 mg/dL (9-23); Magnesium 1.9 mg/dL (1.6-2.6); Sodium 141 mmol/L (136-145)
[2025-01-10 16:57] LABS: Carbon Dioxide 18 mmol/L (20-31); Chloride 117 mmol/L (98-107); Potassium 3.4 mmol/L (3.5-5.1)
[2025-01-10 16:58] LABS: Bilirubin, Total 0.3 mg/dL (0.2-1.0); Calcium 8.1 mg/dL (8.7-10.4); Total Protein 5.7 g/dL (5.7-8.2)
[2025-01-10 17:04] LABS: Glucose 474 mg/dL (74-106)
[2025-01-10 17:15] LABS: INR 1.03 (0.9-1.15); Partial Thromboplastin Time 22.3 SEC (24.5-34.5); Prothrombin Time 10.9 sec (9.3-11.8)
[2025-01-10 17:20] LABS: Acetaminophen < 2.0 UG/ML (10.0-20.0); Salicylate < 3.0 mg/dL (-30)
[2025-01-10] MEDS: ONDANSETRON HCL 4 MG/2 ML VIAL IV ONE (17:56)
[2025-01-10] MEDS: ONDANSETRON HCL 4 MG/2 ML VIAL ONE (17:56)
[2025-01-10] MEDS: IOHEXOL 300 MG/ML 100ML BOTTLE IJ ONE (19:05)
--- NOTE | 2025-01-10 19:30 | DVH ---
EXAM: CT HEAD WITHOUT CONTRAST INDICATION: aloc TECHNIQUE: CT images of the head were obtained without administration of IV contrast. CT scans at this facility use dose modulation, iterative reconstruction, and/or weight based dosing when appropriate to reduce radiation dose to as low as reasonably achievable. COMPARISON: None FINDINGS: PARENCHYMA: No acute hemorrhage. There is no mass effect, midline shift, or herniation. There is preservation of the ferrell white differentiation. Mild scattered hypoattenuation along the periventricular, centrum semiovale, and deep white matter tracts, which are nonspecific however statistically most likely represent chronic microvascular ischemic change. VENTRICLES: No hydrocephalus. EXTRA-AXIAL SPACES: No extra-axial fluid collections. OTHER: The bony structures are intact. Visualized portions of the paranasal sinuses and mastoid air cells are clear. Evidence of prior bilateral cataract surgery. IMPRESSION: 1. No CT evidence of an acute intracranial abnormality.
--- NOTE | 2025-01-10 19:34 | DVH ---
EXAM: CT CT AB PEL WO CON-NO ORAL OR IV INDICATION: AMS/ VOMITING TECHNIQUE: Volumetric multidetector CT images of the abdomen and pelvis were obtained without contrast. All CT scans at this facility use dose modulation, iterative reconstruction, and/or weight based dosing when appropriate to reduce radiation dose to as low as reasonably achievable. COMPARISON: CT CT AB PEL WITH IV CON ONLY on DOS: 12/24/23 FINDINGS: [LOWER CHEST]: The partially visualized lung bases are clear without a pleural effusion. The cardiac size is normal without pericardial effusion. [LIVER]: Hepatomegaly. [GALLBLADDER AND BILIARY TREE]: Gallbladder is poorly visualized with trace density in the gallbladder fossa. Correlate with surgical history. [SPLEEN]: Unremarkable. [PANCREAS]: Unremarkable. [ADRENAL GLANDS]: Unremarkable [KIDNEYS]: No hydronephrosis. No nephroureterolithiasis. [BLADDER]: Robertson catheter decompression [REPRODUCTIVE ORGANS]: IUD in place. Right lateral displacement of the uterus. [BOWEL/MESENTERY]: Postsurgical changes of the stomach with distal circumferential esophageal wall thickening and possible sliding hiatal hernia. Correlate for esophagitis/reflux. No CT evidence of bowel obstruction.at least moderate stool burden. Slight air-fluid level in the transverse colon with n ormal caliber. Correlate for colitis. Right colonic diverticula. The appendix is poorly visualized. [ASCITES]: Absent [LYMPHADENOPATHY]: No pathologically enlarged lymph nodes by CT size criteria [VASCULATURE]: No aneurysmal dilatation. [ABDOMINAL WALL]: Unremarkable. [MUSCULOSKELETAL]: No acute fracture or aggressive focal osseous lesion. Multifocal degenerative change of the visualized spine. IMPRESSION: 1. At least moderate stool burden.Correlate for constipation. 2. Slight air-fluid level in the transverse colon with normal caliber. Correlate for colitis. 3. Postsurgical changes of the stomach with distal circumferential esophageal wall thickening and possible sliding hiatal hernia. Correlate for esophagitis/reflux.
[2025-01-10] MEDS ORDERED: ONDANSETRON HCL 4 MG/2 ML VIAL IV PRN (20:45)
[2025-01-10] MEDS ORDERED: DEXTROSE (50%) 50ML SYRG IV PRN (20:45)
[2025-01-10 20:54] VITALS: RESP 21; O2SAT 96
[2025-01-10] MEDS: SODIUM CHLORIDE 0.9% 500 ML IV ONE (21:32)
[2025-01-10] MEDS: THIAMINE 100mg/ml INJ (200mg/2ml VIAL) IV ONE (21:35)
[2025-01-10] MEDS: POTASSIUM CHL 20MEQ/100ML 100 ML IV ONE (21:48)
[2025-01-10] MEDS: PANTOPRAZOLE 40 MG/10 ML VIAL INJ IV ONE (21:51)
[2025-01-10] MEDS: FOLIC ACID 1 MG in D5W 5% 50 ML INJ ONE (22:02)
[2025-01-10 23:23] LABS: Hematocrit 35.9 % (36.0-46.0); Hemoglobin 12.0 g/dL (12.2-16.2)
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
[2025-01-11] MEDS: ACCU-CHEK COMFORT CURVE STRIP VI SCH (00:34)
[2025-01-11] MEDS: InsuLIN REG 1unit/0.01ml Soln (100units/ml) SC SCH (00:36)
[2025-01-11] MEDS: MAGNESIUM SULFATE 1GM/100ML 100 ML IV ONE (01:05)
--- NOTE | 2025-01-11 03:00 | DVH ---
CHEST RADIOGRAPH Indication: sob Technique: Single frontal view of the chest was obtained COMPARISON: XR CHEST 1 VIEW on DOS: 10/06/24, XR CHEST 1 VIEW on DOS: 09/01/24, XY CHEST XRAY 1 VIEW on DOS: 05/04/24, EKG on DOS: 12/27/21, CHEST PORTABLE on DOS: 12/27/21 FINDINGS: Lines and Tubes: None Lungs: Mild diffuse increased prominence of the pulmonary vasculature. No evidence of focal consolidation. Pleura: No effusion. No pneumothorax. Cardiomediastinal contours: Unremarkable Bones: Unremarkable IMPRESSION: 1. Mild diffuse increased prominence of the pulmonary vasculature.
[2025-01-11 07:29] LABS: Hematocrit 33.7 % (36.0-46.0); Hemoglobin 11.3 g/dL (12.2-16.2); Mean Corpuscular Hemoglobin 32.5 pg (28.0-32.0); Mean Corpuscular Volume 97.0 fL (80.0-100.0); Nucleated Red Blood Cells % 0.0 %
[2025-01-11 07:52] LABS: Alanine Aminotransferase 14 U/L (7-40); Alkaline Phosphatase 93 U/L (46-116); BUN/Creatinine Ratio 9.2 (10.0-20.0); Bilirubin, Total 0.5 mg/dL (0.2-1.0); Carbon Dioxide 26 mmol/L (20-31); Magnesium 2.1 mg/dL (1.6-2.6); Potassium 3.9 mmol/L (3.5-5.1)
[2025-01-11 07:53] LABS: Albumin 3.1 g/dL (3.2-4.8); Blood Urea Nitrogen 7 mg/dL (9-23); Calcium 8.0 mg/dL (8.7-10.4); Glucose 125 mg/dL (74-106); Sodium 147 mmol/L (136-145); Total Protein 5.4 g/dL (5.7-8.2)
[2025-01-11 08:43] LABS: Anion Gap 8 (5-15)
[2025-01-11] MEDS: THIAMINE 100mg/ml INJ (200mg/2ml VIAL) IV SCH (10:19)
[2025-01-11] MEDS: PANTOPRAZOLE 40 MG/10 ML VIAL INJ IV SCH (10:19)
--- NOTE | 2025-01-11 15:43 | DVHPN2 ---
Subjective Patient encephalopathic Reviewed: Care Plan, H&P, Labs, Medications, Previous Orders Changes from previous H/P or p: No Changes General: Per HPI Eyes: No Pain, No Vision change, No Conjunctivae inflammation, No Eyelid inflammation, No Other, No Redness ENT: No Ear pain, No Ear discharge, No Nose pain, No Nose discharge, No Nose congestion, No Mouth pain, No Mouth swelling, No Throat pain, No Throat swelling, No Other Cardiovascular: No Chest Pain, No Palpitations, No Orthopnea, No Paroxysmal Noc. Dyspnea, No Edema, No Lt Headedness, No Other Respiratory: No Cough, No Dry, No Shortness of breath, No SOB with excertion, No Wheezing, No Hemoptysis, No Pleuritic Pain, No Sputum, No Other Gastrointestinal: Nausea, Vomiting, Abdominal Pain; No Diarrhea, No Constipation, No Melena, No Hematochezia, No Other Genitourinary: No Dysuria, No Frequency, No Incontinence, No Hematuria, No Retention, No Other Musculoskeletal: No other, No neck pain, No shoulder pain, No arm pain, No back pain, No hand pain, No leg pain, No foot pain Skin: No Rash, No Lesions, No Jaundice, No Bruising, No Other Objective Vitals Vital Signs Date Time Temp Pulse Resp B/P (MAP) Pulse Ox O2 Delivery O2 Flow Rate FiO2 01/11/25 14:00 79 15 109/60 (76) 95 01/11/25 08:00 Nasal Cannula* 2 28 01/11/25 08:00 100.0 100.0 Intake/Output Intake and Output 01/11/25 07:00 Intake Total 2175 ml Output Total 950 ml Balance 1225 ml Intake IV Total 2175 ml Output Urine Total 950 ml # Bowel Movements 2 General Appearance: Alert, Oriented X3, Cooperative, No acute distress, mild distress HEENT: Atraumatic, PERRLA, EOMI Cardiovascular: Normal S1, Normal S2 Abdomen: Normal bowel sounds, Soft, No tenderness, No hepatospenomegaly, No masses Genitourinary: No Apparent Abnormalities Musculoskeletal: Normal sensory function, Normal motor function Psych/Mental Status: Other (Withdrawn) Medications Current Medications Medications Dose Ordered Sig/Kevin Route Start Time Stop Time Status Last Admin Dose Admin Norepinephrine Bitartrate 250 ml @ 3.75 mls/hr Q24H IV 01/10/25 16:15 11/9/25 16:25 3.75 MLS/HR Ondansetron HCl 4 mg Q4HP PRN IV 01/10/25 20:45 Diagnostic Test (Pha) 1 strip IQ4HR 01/11/25 00:00 01/11/25 12:09 1 STRIP Insulin Human Regular IQ4HR SC 01/11/25 00:00 01/11/25 12:15 2 UNITS Dextrose 50 ml UD PRN IV 01/10/25 20:45 Thiamine HCl 100 mg DAILY IV 01/11/25 10:00 01/11/25 10:19 100 MG Pantoprazole Sodium 40 mg BID IV 01/11/25 10:00 01/11/25 10:19 40 MG Laboratory Results Laboratory Tests 01/11/25 07:00 Chemistry Test 01/10/25 16:04 01/11/25 07:00 Albumin 3.4 g/dL (3.2-4.8) 3.1 g/dL (3.2-4.8) L Calcium Level 8.1 mg/dL (8.7-10.4) L 8.0 mg/dL (8.7-10.4) L Magnesium Level 1.9 mg/dL (1.6-2.6) 2.1 mg/dL (1.6-2.6) Total Protein 5.7 g/dL (5.7-8.2) 5.4 g/dL (5.7-8.2) L Coagulation Test 01/10/25 16:04 Prothrombin Time 10.9 sec (9.3-11.8) Prothrombin Time INR 1.03 (0.9-1.15) Activated Partial Thromboplast Time 22.3 SEC (24.5-34.5) L Cardiac Markers Test 01/10/25 22:49 B-Type Natriuretic Peptide 83.23 pg/mL (0-100) LFT Test 01/10/25 16:04 01/11/25 07:00 Alanine Aminotransferase (ALT) 12 U/L (7-40) 14 U/L (7-40) Alkaline Phosphatase 105 U/L (46-116) 93 U/L (46-116) Aspartate Amino Transferase (AST) 21 U/L (13-40) 18 U/L (13-40) Total Bilirubin 0.3 mg/dL (0.2-1.0) 0.5 mg/dL (0.2-1.0) Urinalysis Test 01/10/25 16:04 Urine Color Light-yellow (Yellow) Urine Clarity Clear (Clear) Urine pH 5.5 (5.0-9.0) Urine Specific [place] 1.038 (1.001-1.035) Urine Protein Negative (Negative) Urine Ketones Negative (Negative) Urine Blood Negative /uL (Negative) Urine Nitrite Negative (Negative) Urine Bilirubin Negative (Negative) Urine Urobilinogen Normal mg/dL (Negative) Urine Leukocyte Esterase Negative /uL (Negative) Urine RBC 1 /hpf (0 - 4) Urine Microscopic WBC 6 /HPF (0-5) H Urine Squamous Epithelial Cells Few /hpf (<5) Urine Bacteria None seen /hpf (None Seen) Urine Mucus Few (None Seen) Urine Glucose 4+ mg/dL (Normal) H Blood Gas Results Test 01/10/25 16:05 Arterial Blood pH 7.330 (7.350-7.450) FiO2 % 32.0 Labs and/or images reviewed: Labs reviewed by me, Image(s) reviewed by me Assessment/Plan Assessment/Plan Impression: -toxic metabolic encephalopathy -polysubstance abuse with cocaine, alcohol, trazodone -moderate protein malnutrition -diabetes mellitus -shock, high secondary to polysubstance abuse Plan: -IV hydration -regular insulin sliding scale -PPI -aspiration precaution -repeat labs in a.m. -continue thiamine Total time spent with patient discussing and formulating plan of care: 35 minutes. This medical document was created using an electronic medical record system with [employer] dictation system. Although this document has been carefully reviewed, there may still be some phonetic and typographical errors. These areas are purely typographical due to imperfections of the software programs, and do not reflect any compromise in the patient's medical care. Plan discussed with: Patient, Other (RN) My Orders Orders - CHRISTY ALVARENGA PLUG OVERWRAP MACHINE TENDER Procedure Category Date Status Time Clear Liq Diet DIET 01/11/25 Transmitted Dinner Complete Blood Count LAB 01/12/25 Verified 04:00 Comprehensive LAB 01/12/25 Verified Metabolic Panel 04:00 Pantoprazole PHA 01/12/25 Transmitted (Protonix) 10:00 NS PHA 01/11/25 Transmitted 15:45 Date of Service: Jan 11, 2025 Billing Provider: CHRISTY ALVARENGA NP Common Visit Codes: [id number]/[id number] DISCH DAY >30min CHRISTY ALVARENGA NP Jan 11, 2025 15:43
[2025-01-11] MEDS: SODIUM CHLORIDE 0.9% 1,000 ML IV SCH (16:00)
[2025-01-11 20:39] VITALS: PULSE 75; RESP 15; O2SAT 96
[2025-01-11 21:33] VITALS: BP 139/81; PULSE 75; RESP 17; TEMP 98.8; O2SAT 95
[2025-01-12] VITALS (7 sets, daily range): BP systolic 125–138; BP diastolic 70–79; PULSE 67–91; RESP 14–18; TEMP 97.6–98.4; O2SAT 94–98
[2025-01-12 08:49] LABS: Hematocrit 37.6 % (36.0-46.0); Hemoglobin 12.5 g/dL (12.2-16.2); Mean Corpuscular Hemoglobin 32.3 pg (28.0-32.0); Mean Corpuscular Volume 96.9 fL (80.0-100.0); Nucleated Red Blood Cells % 0.1 %
[2025-01-12 09:05] LABS: Alanine Aminotransferase 14 U/L (7-40); Albumin 3.3 g/dL (3.2-4.8); Alkaline Phosphatase 92 U/L (46-116); Anion Gap 12 (5-15); BUN/Creatinine Ratio 10.7 (10.0-20.0); Bilirubin, Total 0.7 mg/dL (0.2-1.0); Blood Urea Nitrogen 8 mg/dL (9-23); Calcium 8.5 mg/dL (8.7-10.4); Carbon Dioxide 27 mmol/L (20-31); Chloride 106 mmol/L (98-107); Glucose 105 mg/dL (74-106); Potassium 4.0 mmol/L (3.5-5.1); Sodium 145 mmol/L (136-145); Total Protein 5.7 g/dL (5.7-8.2)
[2025-01-12] MEDS: PANTOPRAZOLE 40 MG/10 ML VIAL INJ IV SCH (09:48)
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
== END 2025-01-12 17:02 | disposition home or self-care (01) | DRG 812 ==
LOC: EDBD 15:20 → EDUNIT# 15:20 → ER 15:20 → OVERFLOW 20:40 → TELE-WESTW 01-11 21:33
PROVIDERS: ADMIT Nurse Practitioner Acute Care; ATTEND Nurse Practitioner Acute Care
DX: T43.211A Poisoning by selective serotonin and norepinephrine reuptake inhibitors, accidental (unintentional), initial encounter (principal); R57.9 Shock, unspecified; G92.8 Other toxic encephalopathy; E44.0 Moderate protein-calorie malnutrition; E87.20 Acidosis, unspecified; E87.3 Alkalosis; E11.00 Type 2 diabetes mellitus with hyperosmolarity without nonketotic hyperglycemic-hyperosmolar coma (NKHHC); D53.9 Nutritional anemia, unspecified; I50.9 Heart failure, unspecified; F10.129 Alcohol abuse with intoxication, unspecified; F14.10 Cocaine abuse, uncomplicated; F32.A Depression, unspecified; T51.91XA Toxic effect of unspecified alcohol, accidental (unintentional), initial encounter; T40.5X1A Poisoning by cocaine, accidental (unintentional), initial encounter; Z68.24 Body mass index [BMI] 24.0-24.9, adult; E87.6 Hypokalemia; E83.42 Hypomagnesemia; E78.5 Hyperlipidemia, unspecified; F41.9 Anxiety disorder, unspecified; L91.0 Hypertrophic scar; K59.01 Slow transit constipation; Z90.49 Acquired absence of other specified parts of digestive tract; Z86.73 Personal history of transient ischemic attack (TIA), and cerebral infarction without residual deficits; Y92.89 Other specified places as the place of occurrence of the external cause
CPT/HCPCS: 36415; 36600; 70450; 71045; 74176; 80053; 80307; 80320; 80329; 81001; 82805; 82962; 83735; 83880; 85014; 85018; 85025; 85610; 85730; 93005; 96365; 96375; 99291; G0378; J1815; J2405; J2470; J3480; J7060

== ENCOUNTER 2025-02-22 08:41 | Inpatient (IN) | payer MEDICAID ==
[~2025-02-22] VITALS: Ht 149.9 cm; Wt 59.8 kg
--- NOTE | 2025-02-22 09:56 | ED.PDOC ---
History of Present Illness HPI Comments 54 year old female with PMHx of DM presents to the emergency department for chief complaint of infected abdomen wound onset 3 months ago. Pt states that they received I&D during their last visit at [facility] several months ago and states that the wound appears infected with pus leaking out and excessive fluid bobby putnam. Pt's wound is localized to lower middle region of the abdomen. Pt rates current discomfort level 10/10. Pt vitals are otherwise stable. Chief Complaint: Wound Check Time Seen by MD: 09:52 Primary Care Provider: DASHAWN Reviewed Notes: Nurses Notes, Medications, Allergies Allergies: Coded Allergies: NO KNOWN ALLERGIES (Unverified , 03/24/11) Home Meds Active Scripts Famotidine (PEPCID TABLET) 20 Mg Tb, 1 TAB PO BID PRN for 30 Days, #60 TAB 3 Refills Prov:HILARIO REAL MD 12/29/23 Ibuprofen Micronized (MOTRIN TABLET) 600 Mg Tb, 600 MG PO TID PRN for 7 Days, #21 TAB *Black box warning-NSAIDS can increase risk of MS & hypertension, GI irritation, ulceration, bleed, perferation. Do not use post cardiac surgery. Use short duration/lowest effective dose. Prov:HILARIO REAL MD 12/29/23 Clindamycin HCl (Clindamycin Hydrochloride) 300 Mg Cap, 300 MG PO QID for 7 Days, #28 CAP Prov:HILARIO REAL MD 12/29/23 Reported Medications Hydroxyzine Hcl (Hydroxyzine Hcl) 50 Mg Tab, 50 MG PO HS, TAB 12/25/23 Umeclidinium [place] (Incruse Ellipta) 62.5 Mcg/Inh Inh, 1 PUFF IN PRN for SHORTNESS OF BREATH, INHALER 12/25/23 Albuterol Sulfate (VENTOLIN MDI) 90 Mcg Ih, 2 PUFF IN PRN for SHORTNESS OF BREATH, INH 12/25/23 Artificial Tear Solution (ARTIFICIAL TEARS) Tears [place], 1 DROP EACHEYE QID for DRY EYES, ML 12/25/23 Latanoprost (LATANOPROST) 0.005 % [place], 0.005 % OP HS, ML 12/25/23 Tramadol Hcl (Tramadol Hcl) 50 Mg Tab, 1 TAB PO TID 12/25/23 Semaglutide (Ozempic) 4 Mg/3 Ml Inj, 0.1 UNIT SC QWEEKLY 12/25/23 Insulin Glargine (Insulin Glargine Solostar) 300 Unit/Ml Inj, 40 UNIT SC QAM 12/25/23 Insulin Lispro (Humalog Kwikpen) 100 Unit/Ml Inj, 8-12 UNITS SC TIDBM 12/25/23 Trazodone HCl (Trazodone Hydrochloride) 50 Mg Tab, 50 MG PO HS, TAB 12/24/23 Gabapentin (Gabapentin) 800 Mg Tab, 1 TAB PO QID 12/24/23 Empagliflozin (Jardiance) 25 Mg Tab, 1 TAB PO DAILY 12/24/23 Clopidogrel Bisulfate (CLOPIDOGREL) 75 Mg Tab, 1 TAB PO DAILY 12/24/23 Atorvastatin Calcium (ATORVASTATIN CALCIUM) 40 Mg Tab, 1 TAB PO HS 12/24/23 Furosemide (Furosemide) 40 Mg Tab, 1 TAB PO BID 12/27/21 Lisinopril (Lisinopril) 5 Mg Tab, 1 TAB PO DAILY 12/27/21 Potassium Chloride (K-Tab) 20 Meq Tab, 1 TAB PO DAILY 12/27/21 Pantoprazole Sodium Sesquihydr (Pantoprazole Sodium) 40 Mg Tab, 1 TAB PO DAILY 12/27/21 Meloxicam (Meloxicam) 15 Mg Tab, 7.5 MG PO DAILY, #30 TAB 07/01/16 Aspirin (ASPIRIN 81) 81 Mg Tab, 81 MG PO DAILY, TAB 11/10/14 Information Source: Patient Mode of Arrival: Ambulatory Severity: Moderate Timing: Months Duration: Since onset Prehospital treatment: None Past Medical History PAST MEDICAL HISTORY: Anxiety, Arthritis, CHF, Depression, DM, High Lipids, TIA Surgical History: Cholecystectomy, 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 History Family History Family History: Unknown Social History Smoker: Non-Smoker Alcohol: Occasionally Drugs: Denies Drug Use Lives In: Home Constitutional: denies: chills, diaphoresis, fatigue, fever, malaise, sweats, weakness, others EENTM: denies: blurred vision, double vision, ear bleeding, ear discharge, ear drainage, ear pain, ear ringing, eye pain, eye redness, hearing loss, mouth pain, mouth swelling, nasal discharge, nose bleeding, nose congestion, nose pain, photophobia, tearing, throat pain, throat swelling, voice changes, others Respiratory: denies: cough, hemoptysis, orthopnea, SOB at rest, shortness of breath, SOB with excertion, stridor, wheezing, others Cardiovascular: denies: chest pain, dizzy spells, diaphoresis, Dyspnea on exertion, edema, irregular heart beat, left arm pain, lightheadedness, palpitations, PND, syncope, others Gastrointestinal: reports: abdominal pain; denies: abdomen distended, blood streaked bowels, constipated, diarrhea, dysphagia, difficulty swallowing, hematemesis, melena, nausea, poor appetite, poor fluid intake, rectal bleeding, rectal pain, vomiting, others Genitourinary: denies: abnormal vagina bleeding, burning, dyspareunia, dysuria, flank pain, frequency, hematuria, incontinence, pain, , vagina discharge, urgency, others Neurological: denies: dizziness, fainting, headache, left sided numbness, left sided weakness, numbness, paresthesia, pre-existing deficit, right sided numbness, right sided weakness, seizure, speech problems, tingling, tremors, weakness, others Musculoskeletal: denies: back pain, gout, joint pain, joint swelling, muscle pain, muscle stiffness, neck pain, others Integumetry: reports: wounds, others (fluid drainage, pus); denies: bruises, change in color, change in hair/nails, dryness, laceration, lesions, lumps, rash Allergic/Immunocompromised: denies: Difficulty Healing, Frequent Infections, H clint, Itching, others Hematologic/Lymphatic: denies: anemia, blood clots, easy bleeding, easy bruising, swollen glands, others Endocrine: denies: excessive hunger, excessive sweating, excessive thirst, excessive urination, flushing, intolerance to cold, intolerance to heat, unexplained weight gain, unexplained weight loss, others Physical Exam General Appearance: Moderate Distress HEENT: Normal ENT Inspection, Pharynx Normal, TMs Normal Neck: Full Range of Motion, Non-Tender, Normal, Normal Inspection Respiratory: Chest Non-Tender, Lungs Clear, No Accessory Muscle Use, No Respiratory Distress, Normal Breath Sounds Cardiovascular: No Edema, No JVD, No Murmur, No Gallop, Normal Peripheral Pulses, Regular Rate/Rhythm Breast Exam: Deferred Gastrointestinal: No Organomegaly, Non Tender, No Pulsatile Mass, Normal Bowel Sounds, Soft Genitalia: Deferred Pelvic: Deferred Rectal: Deferred Extremities: No calf tenderness, Normal capillary refill, Normal inspection, Normal range of motion, Non-tender, No pedal edema Musculoskeletal : Apperance: Normal Neurologic: Alert, data analyst II-XII nml as Tested, No Motor Deficits, Normal Affect, Normal Mood, No Sensory Deficits Cerebellar Function: NOT DONE Reflexes: NOT DONE Skin: Wounds (Redness drainage of has a plan I and D umbilical region) Peripheral Pulses: 3+ Radial (R), 3+ Radial (L) Lymphatic: No Adenopathy Was a procedure done? Was a procedure done?: No Differential Dx Considerations may include: Cellulitis X-Ray, Labs, Meds, VS Vital Signs Date Time Temp Pulse Resp B/P (MAP) Pulse Ox O2 Delivery O2 Flow Rate FiO2 02/22/25 14:28 97.3 78 16 134/66 (88) 97 97.3 02/22/25 13:31 78 12 124/71 02/22/25 13:01 83 18 115/64 02/22/25 12:25 97.0 88 16 136/59 (84) 97 97.0 02/22/25 10:19 98.6 84 16 126/63 (84) 98 98.6 02/22/25 10:19 85 99 Room Air* 0 21 02/22/25 08:50 98.6 77 18 131/80 98 98.6 Lab Test 02/22/25 13:22 02/22/25 10:50 Range/Units Lactic Acid Level 1.9 0.4-2.0 mmol/L White Blood Count 3.7 L 4.4-10.8 10^3/uL Red Blood Count 4.53 4.0-5.20 10^6/uL Hemoglobin 15.0 12.2-16.2 g/dL Hematocrit 44.1 36.0-46.0 % Mean Corpuscular Volume 97.4 80.0-100.0 fL Mean Corpuscular Hemoglobin 33.0 H 28.0-32.0 pg Mean Corpuscular Hemoglobin Concent 33.9 32.0-36.0 g/dL Red Cell Distribution Width 13.7 11.8-14.3 % Platelet Count 267 140-450 10^3/uL Mean Platelet Volume 9.2 6.9-10.8 fL Neutrophils (%) (Auto) 58.2 37.0-80.0 % Lymphocytes (%) (Auto) 31.9 10.0-50.0 % Monocytes (%) (Auto) 7.9 0.0-12.0 % Eosinophils (%) (Auto) 1.6 0.0-7.0 % Basophils (%) (Auto) 0.4 0.0-2.0 % Neutrophils # (Auto) 2.2 1.6-8.6 10 ^3/uL Lymphocytes # (Auto) 1.2 0.4-5.4 10 ^3/uL Monocytes # (Auto) 0.3 0-1.3 10 ^3/uL Eosinophils # (Auto) 0.1 0-0.8 10 ^3/uL Basophils # (Auto) 0 0-0.2 10 ^3/uL Nucleated Red Blood Cells 0.1 % Sodium Level 140 136-145 mmol/L Potassium Level 4.1 3.5-5.1 mmol/L Chloride Level 106 98-107 mmol/L Carbon Dioxide Level 28 20-31 mmol/L Anion Gap 6 5-15 Blood Urea Nitrogen 11 9-23 mg/dL Creatinine 0.82 0.550-1.02 mg/dL Glomerular Filtration Rate Calc 85 >90 mL/min BUN/Creatinine Ratio 13.4 10.0-20.0 Serum Glucose 282 H 74-106 mg/dL Hemoglobin A1c 13.5 H <5.7 % A1C Calcium Level 9.3 8.7-10.4 mg/dL Total Bilirubin 0.3 0.2-1.0 mg/dL Aspartate Amino Transferase (AST) 19 13-40 U/L Alanine Aminotransferase (ALT) 20 7-40 U/L Alkaline Phosphatase 140 H 46-116 U/L C-Reactive Protein High Sensitivity 0.22 <1.0 mg/dL B-Type Natriuretic Peptide 116.43 0-100 pg/mL Total Protein 7.6 5.7-8.2 g/dL Albumin 4.6 3.2-4.8 g/dL Current Medications Medications (Trade) Dose Ordered Sig/Kevin Route Start Time Stop Time Status Last Admin Piperacillin Sod/ Tazobactam Sod 100 ml @ 100 mls/hr ONCE ONCE IV 02/22/25 09:45 02/22/25 10:44 DC 02/22/25 11:27 Sodium Chloride 1,000 ml @ 1,000 mls/hr Q1H ONCE IV 02/22/25 09:45 02/22/25 10:44 DC 02/22/25 10:19 Ondansetron HCl (Zofran) 4 mg ONCE ONCE IV 02/22/25 12:45 02/22/25 12:46 DC 02/22/25 13:02 Morphine Sulfate 4 mg ONCE ONCE IV 02/22/25 12:45 02/22/25 12:46 DC 02/22/25 13:01 Patient alert. Came in because of wound in the abdominal area. Vitals stable. Answering questions. Blood sugar elevated. On examination she does have drainage of the I and D. Possibly diabetes causing delayed healing. Establish intravenous access. Was given fluids. Was given Zosyn. Was given morphine for the pain. Continue monitoring. Time of 1ST Reevaluation: : Reevaluation 1ST: Unchanged Patient Education/Counseling: Diagnosis, Treatment, Need For Follow Up Family Education/Counseling: Diagnosis, Treatment, Need For Follow Up, No Family Present SEPSIS Sepsis Screen Date sepsis recognized/suspect: Feb 22, 2025 Time Sepsis recognized/suspect: 849 Recent Procedure: No On Antibiotic Therapy: No Respiratory Rate >20: No Heart Rate >90: No Temp<36 C (96.8 F) or >38.3 C: No SBP <90 or MAP <65 mmHG: No New Acute Mental Status Change: No Is the patient on CPAP, BIPAP,: No Physician Orders Blood Culture (02/22/25 10:26) Urinalysis (02/22/25 10:30) Admit (02/22/25 14:56) Allergies (02/22/25 14:56) Code Status (02/22/25 14:56) Sodium Chloride Lock (Saline Lock Ns) (02/22/25 22:00) Sodium Chloride 0.9% (02/22/25 15:00) Hydrocodone-Acet 5/325mg Tab ([place] 5/32 (02/22/25 15:00) Ondansetron Hcl (Zofran) (02/22/25 15:00) Enoxaparin Sodium (Lovenox) (02/23/25 10:00) Complete Blood Count (02/23/25 04:00) Comprehensive Metabolic Panel (02/23/25 04:00) Condition: Fair (02/22/25 14:56) Acetaminophen Tablet (Tylenol Tablet) (02/22/25 15:00) Glucose Blood (Accu-Chek Comfort Curve T (02/22/25 18:00) Insulin R (Human) (Insulin R) (02/22/25 18:00) Dextrose 50% Syringe (02/22/25 15:00) * Wound Consult (02/22/25 ) Wound Culture W/ Gs (02/22/25 14:56) * Surgical Consult (02/22/25 ) Ct Ab Pel Wo Con-No Oral Or Iv (02/22/25 14:56) Vital Signs Date Time Temp Pulse Resp B/P (MAP) Pulse Ox O2 Delivery O2 Flow Rate FiO2 02/22/25 14:28 97.3 78 16 134/66 (88) 97 97.3 02/22/25 13:31 78 12 124/71 02/22/25 13:01 83 18 115/64 02/22/25 12: 97.0 88 16 136/59 (84) 97 97.0 02/22/25 10:19 98.6 84 16 126/63 (84) 98 98.6 02/22/25 10:19 85 99 Room Air* 0 21 02/22/25 08:50 98.6 77 18 131/80 98 98.6 Laboratory Tests Test 02/22/25 10:50 02/22/25 13:22 White Blood Count 3.7 10^3/uL (4.4-10.8) L Lactic Acid Level 1.9 mmol/L (0.4-2.0) Medications Medications Dose Ordered Sig/Kevin Route Start Time Stop Time Status Last Admin Dose Admin Morphine Sulfate 4 mg ONCE ONCE IV 02/22/25 12:45 02/22/25 12:46 DC 02/22/25 13:01 Ondansetron HCl 4 mg ONCE ONCE IV 02/22/25 12:45 02/22/25 12:46 DC 02/22/25 13:02 Piperacillin Sod/ Tazobactam Sod 100 ml @ 100 mls/hr ONCE ONCE IV 02/22/25 09:45 02/22/25 10:44 DC 02/22/25 11:27 Sodium Chloride 1,000 ml @ 1,000 mls/hr Q1H ONCE IV 02/22/25 09:45 02/22/25 10:44 DC 02/22/25 10:19 Departure 1 Departure Time of Disposition: 13:08 Impression: Primary Impression: Cellulitis Qualified Codes: L03.90 - Cellulitis, unspecified Disposition: ADMITTED INPATIENT Admit to: Med Surg Condition: Guarded Critical Care Note Critical Care Time?: No Stability Stability form required: No Heart Score Heart Score: Heart Score Response (Comments) Value History N/A 0 EKG N/A 0 Age N/A 0 Risk Factors N/A 0 Troponin N/A 0 Total 0 I personally scribed for ANGELO HEARN MD ([email or web address]) on 02/22/25 at 09:56. Electronically submitted by Judith Mcconnell ([email or web address]). ANGELO HEARN MD Feb 22, 2025 09:56
[2025-02-22 10:19] VITALS: PULSE 85; O2SAT 99
[2025-02-22] MEDS: SODIUM CHLORIDE 0.9% 1,000 ML IV ONE (10:19)
[2025-02-22] MEDS: PIPERACILLIN-TAZOB 3.375GM 100 ML IV ONE (11:27)
[2025-02-22 11:45] LABS: Hematocrit 44.1 % (36.0-46.0); Hemoglobin 15.0 g/dL (12.2-16.2); Mean Corpuscular Hemoglobin 33.0 pg (28.0-32.0); Mean Corpuscular Volume 97.4 fL (80.0-100.0); Nucleated Red Blood Cells % 0.1 %
[2025-02-22 11:58] LABS: Alanine Aminotransferase 20 U/L (7-40); Albumin 4.6 g/dL (3.2-4.8); Anion Gap 6 (5-15); BUN/Creatinine Ratio 13.4 (10.0-20.0); Bilirubin, Total 0.3 mg/dL (0.2-1.0); Blood Urea Nitrogen 11 mg/dL (9-23); Calcium 9.3 mg/dL (8.7-10.4); Carbon Dioxide 28 mmol/L (20-31); Chloride 106 mmol/L (98-107); Potassium 4.1 mmol/L (3.5-5.1); Sodium 140 mmol/L (136-145); Total Protein 7.6 g/dL (5.7-8.2)
[2025-02-22 12:11] LABS: Alkaline Phosphatase 140 U/L (46-116); Glucose 282 mg/dL (74-106)
[2025-02-22] MEDS: MORPHINE SULFATE 4 MG/ML SYR/VIAL IV ONE (13:01)
[2025-02-22] MEDS: ONDANSETRON HCL 4 MG/2 ML VIAL IV ONE (13:02)
[2025-02-22] MEDS ORDERED: ACETAMINOPHEN 325 MG TAB PO PRN (15:00)
[2025-02-22] MEDS ORDERED: DEXTROSE (50%) 50ML SYRG IV PRN (15:00)
--- NOTE | 2025-02-22 15:52 | DVHHPRES ---
History of Present Illness Resident Creating Document: NEMESIO GARCÍA RESIDENT History of Present Illness Ms Kapadia is a 54 y o F patient with a history of depression, anxiety, DM type 2, HLD and CHF presenting with an abdominal wound infection that has been present for approximately 2 weeks. The patient reports significant purulent drainage from the wound along with abdominal pain and weakness. She denies fever or diarrhea. The wound itself has been present since summertime and originated from a previous hospitalization where she underwent drainage of abdominal fluid. The patient describes having a large knot in her abdomen that required drainage by a physician. Initially, the wound appeared to be healing with scab formation. However, the patient reports that while showering, she noticed scabs falling off, and subsequently purulent drainage began. The patient has a surgical history significant for gastric surgery, sections, and gallbladder removal. She reports poor medication adherence, specifically noting that she has not been taking her gabapentin or insulin regularly. She acknowledges that her blood sugar may be elevated due to inconsistent insulin use. Medical History - T2 DM - Neuropathy - Asthma - Anxiety - ? CHF - Previous hospitalization for abdominal fluid collection requiring drainage Surgical History - Gallbladder removal (cholecystectomy) - C-sections - Abdominal fluid drainage procedure performed during previous hospital admission Social History - Substance Use: Drinks wine occasionally but has decreased consumption recently, uses cocaine 2-3 times per week, denies tobacco use - Living Situation: Lives with and son, has children at home - Medication Compliance: Reports not taking prescribed medications regularly, including insulin Review of Systems General: Positive for weakness, negative for fever. Gastrointestinal: Negative for diarrhea. Review of Systems Allergies: Coded Allergies: NO KNOWN ALLERGIES (Unverified , 03/24/11) Medications Current Medications Medications Dose Ordered Sig/Kevin Route Start Time Stop Time Status Last Admin Dose Admin Sodium Chloride 10 ml Q8HR IV 02/22/25 22:00 Sodium Chloride 1,000 ml @ 60 mls/hr [id number] IV 02/22/25 15:00 Acetaminophen/ Hydrocodone Bitart 1 tab Q4HP PRN PO 02/22/25 15:00 Ondansetron HCl 4 mg Q4HP PRN IV 02/22/25 15:00 Enoxaparin Sodium 40 mg DAILY SC 02/23/25 10:00 Acetaminophen 650 mg Q6HP PRN PO 02/22/25 15:00 Diagnostic Test (Pha) 1 strip Q6HR 02/22/25 18:00 Insulin Human Regular Q6HR SC 02/22/25 18:00 Dextrose 50 ml UD PRN IV 02/22/25 15:00 Exam Vital Signs Vital Signs Date Time Temp Pulse Resp B/P (MAP) Pulse Ox O2 Delivery O2 Flow Rate FiO2 02/22/25 14:28 97.3 78 16 134/66 (88) 97 97.3 02/22/25 10:19 Room Air* 0 21 Exam Pt is lying on bed General Appearance: Alert, Oriented X3, Cooperative, Not in acute distress HEENT: Atraumatic, Mucous membranes moist/pink Respiratory: Clear to auscultation, Normal air movement, No added sounds Cardiovascular: Regular rate, Normal S1, Normal S2, No murmurs Abdomen: Wound present on abdomen with purulent drainage noted and tenderness Extremities: No edema, Normal pulses, No tenderness/swelling Skin: as described in abdomen Neuro: Normal speech, sensorimotor deficits none Psych/Mental Status: Mental status NL, Mood NL Nurse was there as senior officer during examination Labs/Xrays Labs Test 02/22/25 13:22 02/22/25 10:50 Range/Units Lactic Acid Level 1.9 0.4-2.0 mmol/L White Blood Count 3.7 L 4.4-10.8 10^3/uL Red Blood Count 4.53 4.0-5.20 10^6/uL Hemoglobin 15.0 12.2-16.2 g/dL Hematocrit 44.1 36.0-46.0 % Mean Corpuscular Volume 97.4 80.0-100.0 fL Mean Corpuscular Hemoglobin 33.0 H 28.0-32.0 pg Mean Corpuscular Hemoglobin Concent 33.9 32.0-36.0 g/dL Red Cell Distribution Width 13.7 11.8-14.3 % Platelet Count 267 140-450 10^3/uL Mean Platelet Volume 9.2 6.9-10.8 fL Neutrophils (%) (Auto) 58.2 37.0-80.0 % Lymphocytes (%) (Auto) 31.9 10.0-50.0 % Monocytes (%) (Auto) 7.9 0.0-12.0 % Eosinophils (%) (Auto) 1.6 0.0-7.0 % Basophils (%) (Auto) 0.4 0.0-2.0 % Neutrophils # (Auto) 2.2 1.6-8.6 10 ^3/uL Lymphocytes # (Auto) 1.2 0.4-5.4 10 ^3/uL Monocytes # (Auto) 0.3 0-1.3 10 ^3/uL Eosinophils # (Auto) 0.1 0-0.8 10 ^3/uL Basophils # (Auto) 0 0-0.2 10 ^3/uL Nucleated Red Blood Cells 0.1 % Sodium Level 140 136-145 mmol/L Potassium Level 4.1 3.5-5.1 mmol/L Chloride Level 106 98-107 mmol/L Carbon Dioxide Level 28 20-31 mmol/L Anion Gap 6 5-15 Blood Urea Nitrogen 11 9-23 mg/dL Creatinine 0.82 0.550-1.02 mg/dL Glomerular Filtration Rate Calc 85 >90 mL/min BUN/Creatinine Ratio 13.4 10.0-20.0 Serum Glucose 282 H 74-106 mg/dL Calcium Level 9.3 8.7-10.4 mg/dL Total Bilirubin 0.3 0.2-1.0 mg/dL Aspartate Amino Transferase (AST) 19 13-40 U/L Alanine Aminotransferase (ALT) 20 7-40 U/L Alkaline Phosphatase 140 H 46-116 U/L Total Protein 7.6 5.7-8.2 g/dL Albumin 4.6 3.2-4.8 g/dL SEPSIS Sepsis Screen Date sepsis recognized/suspect: Feb 22, 2025 Time Sepsis recognized/suspect: 1024 Recent Procedure: No On Antibiotic Therapy: No Respiratory Rate >20: No Heart Rate >90: No Temp<36 C (96.8 F) or >38.3 C: No SBP <90 or MAP <65 mmHG: No New Acute Mental Status Change: No Is the patient on CPAP, BIPAP,: No Physician Orders Blood Culture (02/22/25 10:26) Urinalysis (02/22/25 10:30) Admit (02/22/25 14:56) Allergies (02/22/25 14:56) Code Status (02/22/25 14:56) Sodium Chloride Lock (Saline Lock Ns) (02/22/25 22:00) Sodium Chloride 0.9% (02/22/25 15:00) Hydrocodone-Acet 5/325mg Tab ([place] 5/32 (02/22/25 15:00) Ondansetron Hcl (Zofran) (02/22/25 15:00) Enoxaparin Sodium (Lovenox) (02/23/25 10:00) Complete Blood Count (02/23/25 04:00) Comprehensive Metabolic Panel (02/23/25 04:00) Condition: Fair (02/22/25 14:56) Acetaminophen Tablet (Tylenol Tablet) (02/22/25 15:00) Glucose Blood (Accu-Chek Comfort Curve T (02/22/25 18:00) Insulin R (Human) (Insulin R) (02/22/25 18:00) Dextrose 50% Syringe (02/22/25 15:00) * Wound Consult (02/22/25 ) Wound Culture W/ Gs (02/22/25 14:56) * Surgical Consult (02/22/25 ) Ct Ab Pel Wo Con-No Oral Or Iv (02/22/25 14:56) Hemoglobin A1c (02/22/25 15:40) B-Type Natriuretic Peptide (02/22/25 15:40) Drug Screen (02/22/25 15:40) PTPTT (02/22/25 15:40) C-Reactive Protein (02/22/25 15:40) Chest Xray 1 View (02/22/25 15:40) Clear Liq Diet (02/22/25 Dinner) Zosyn Extended Infusion (02/22/25 22:00) Vancomycin (02/22/25 16:00) Vital Signs Date Time Temp Pulse Resp B/P (MAP) Pulse Ox O2 Delivery O2 Flow Rate FiO2 02/22/25 14:28 97.3 78 16 134/66 (88) 97 97.3 02/22/25 13:31 78 12 124/71 02/22/25 13:01 83 18 115/64 02/22/25 12:25 97.0 88 16 136/59 (84) 97 97.0 02/22/25 10:19 98.6 84 16 126/63 (84) 98 98.6 02/22/25 10:19 85 99 Room Air* 0 21 02/22/25 08:50 98.6 77 18 131/80 98 98.6 Laboratory Tests Test 02/22/25 10:50 02/22/25 13:22 White Blood Count 3.7 10^3/uL (4.4-10.8) L Lactic Acid Level 1.9 mmol/L (0.4-2.0) Medications Medications Dose Ordered Sig/Kevin Route Start Time Stop Time Status Last Admin Dose Admin Morphine Sulfate 4 mg ONCE ONCE IV 02/22/25 12:45 02/22/25 12:46 DC 02/22/25 13:01 4 MG Ondansetron HCl 4 mg ONCE ONCE IV 02/22/25 12:45 02/22/25 12:46 DC 02/22/25 13:02 4 MG Piperacillin Sod/ Tazobactam Sod 100 ml @ 100 mls/hr ONCE ONCE IV 02/22/25 09:45 02/22/25 10:44 DC 02/22/25 11:27 100 MLS/HR Sodium Chloride 1,000 ml @ 1,000 mls/hr Q1H ONCE IV 02/22/25 09:45 02/22/25 10:44 DC 02/22/25 10:19 1,000 MLS/HR Assessment/Plan Assessment/Plan Steffi presents with a 2-week history of abdominal wound infection with purulent drainage and pain, along with medication non-compliance affecting diabetes management. Abdominal wall cellulitis, rule out abscess Abdominal wound infection Plan: - Hospital admission for management of abdominal wound infection - IV antibiotics of Zosyn and vancomycin for now - obtain wound cultures and wound consult - surgical consult for possible debridement - ordered CT abdomen pelvis Uncontrolled type 2 DM Medication non-compliance Assessment: Patient is on insulin therapy but reports poor compliance with treatment. Concerned about elevated blood glucose levels due to medication non- adherence, which could impact wound healing and overall health status. Plan: - Blood glucose monitoring - Medication reconciliation and adherence counseling for 17 mins Cocaine use disorder /dependence - counseled regarding cessation for more than 17 minutes GI PPX: Protonix VTE ppx: Lovenox Diet: NPO/ clear liquids if tolerates Goals of care addressed with the patient for more than 27 minutes: Full code status Case discussed with Dr. Mir ,patient and nurse Plan discussed with: Patient My Orders Orders - NEMESIO GARCÍA RESIDENT Procedure Category Date Status Time Admit ADMIT 02/22/25 Transmitted 14:56 Allergies ESTRELLA 02/22/25 In Process 14:56 Code Status CODE 02/22/25 Transmitted 14:56 Sodium Chloride Lock PHA 02/22/25 In Process (Saline Lock Ns) 22:00 Sodium Chloride 0.9% PHA 02/22/25 In Process 15:00 Hydrocodone-Acet PHA 02/22/25 In Process 5/325mg Tab ([place] 15:00 Ondansetron Hcl PHA 02/22/25 In Process (Zofran) 15:00 Enoxaparin Sodium PHA 02/23/25 In Process (Lovenox) 10:00 Complete Blood Count LAB 02/23/25 Verified 04:00 Comprehensive LAB 02/23/25 Verified Metabolic Panel 04:00 Condition: Fair ESTRELLA 02/22/25 In Process 14:56 Acetaminophen Tablet PHA 02/22/25 In Process (Tylenol Tablet) 15:00 Glucose Blood PHA 02/22/25 In Process (Accu-Chek Comfort 18:00 Insulin R (Human) PHA 02/22/25 In Process (Insulin R) 18:00 Dextrose 50% Syringe PHA 02/22/25 In Process 15:00 * Wound Consult CONS 02/22/25 Transmitted Wound Culture W/ Gs CHRISTI 02/22/25 Logged 14:56 * Surgical Consult CONS 02/22/[address] Ab Pel Wo Con-No CT 02/22/25 Taken Oral Or Iv 14:56 Hemoglobin A1c LAB 02/22/25 In Process 15:40 B-Type Natriuretic LAB 02/22/25 In Process Peptide 15:40 Drug Screen LAB 02/22/25 Logged 15:40 PTPTT LAB 02/22/25 Logged 15:40 C-Reactive Protein LAB 02/22/25 In Process 15:40 Chest Xray 1 View XY 02/22/25 Logged 15:40 Clear Liq Diet DIET 02/22/25 Transmitted Dinner Zosyn Extended PHA 02/22/25 Verified Infusion 22:00 Vancomycin PHA 02/22/25 Verified 16:00 Visit Coding STANDARD RES Billing Provider: KIARA MIR MD Date of Service if different f: Feb 22, 2025 Common Visit Codes: 86262-QPHPGDS INP/OBS CARE (HIGH) Secondary Visit Codes: [id number] CARE PLAN 30 MINUTES NEMESIO GARCÍA Feb 22, 2025 15:52 KIARA MIR MD Feb 23, 2025 22:00
[2025-02-22] MEDS ORDERED: VANCOMYCIN PER PHARMACY 0 MG IV SCH (16:00)
--- NOTE | 2025-02-22 16:17 | DVH ---
CHEST RADIOGRAPH INDICATION: sob TECHNIQUE: Single frontal view of the chest was obtained COMPARISON: XY CHEST XRAY 1 VIEW on DOS: 01/10/25, XR CHEST 1 VIEW on DOS: 10/06/24, XR CHEST 1 VIEW on DOS: 09/01/24 FINDINGS: Lines and Tubes: None Lungs: No focal consolidation. Pleura: No effusion. No pneumothorax. Cardiomediastinal contours: Unremarkable Bones: No acute osseous abnormality. IMPRESSION: 1. No acute cardiopulmonary disease. 2. Resolved pulmonary vascular congestion.
--- NOTE | 2025-02-22 16:27 | DVH ---
INDICATION: Abdominal wall wound, cellulitis TECHNIQUE: CT axial images of the abdomen and pelvis are obtained without contrast. Coronal and sagittal reformats were obtained. COMPARISON: CT CT AB PEL WO CON-NO ORAL OR IV on DOS: 01/10/25 FINDINGS: There is limited interpretation of the abdomen and pelvis without administration of intravenous contrast. The right hepatic dome is not completely characterized. Lung bases demonstrate no pleural effusion. Adrenal glands, spleen, pancreas and liver unremarkable in shape. Gallbladder contracted/removed. The kidneys demonstrate no hydronephrosis / nephrolithiasis. Small hiatal hernia. Postsurgical changes stomach. Marked gastric distention. Small bowel loops are moderately distended. Large volume stool in the colon. No secondary signs for appendicitis. Abdominal aortic atherosclerotic disease. Bladder distended. Uterus lateralized towards the right aspect of the pelvis. There is an intrauterine device. Extensive atherosclerotic calcification disease in the pelvis. Soft tissue edema / anasarca. Moderate bilateral sacroiliac degenerative joint disease. [id number] lumbar degenerative disc disease. 6 mm anterolisthesis of L4 upon L5. Moderate lumbar facet hypertrophic changes. Soft tissue edema/ anasarca. Right rectus abdominis/ right ventral wall heterogeneous/complex lesion / collection measuring 3.0 x 2.1 x 7.3 cm IMPRESSION: Limited evaluation without contrast. Right rectus abdominus/ right ventral wall heterogeneous/complex lesion/ collection measuring 3 x 2.1 x 7.3 cm. Differential considerations include infectious/inflammatory processes/collections, less likely but not included would include neoplastic/ other aggressive processes. Correlate clinically. Soft tissue edema /anasarca. Small hiatal hernia. Marked gastric distention. Large volume stool in the colon. Extensive atherosclerotic disease. Intrauterine device. Other findings as described.
[2025-02-22] MEDS: VANCOMYCIN 1GM/250ML IV ONE (16:44)
[2025-02-22] MEDS: ACCU-CHEK COMFORT CURVE STRIP VI SCH (18:00)
[2025-02-22 18:31] LABS: INR 0.92 (0.9-1.15); Partial Thromboplastin Time 24.2 SEC (24.5-34.5); Prothrombin Time 9.8 sec (9.3-11.8)
[2025-02-22] MEDS: HYDROcodone-ACET 5/325MG TAB PO PRN (18:44)
[2025-02-22] MEDS: InsuLIN REG 1unit/0.01ml Soln (100units/ml) SC SCH (18:44)
[2025-02-22 21:00] VITALS: BP 118/55; PULSE 74; RESP 20; TEMP 98.3; O2SAT 97
[2025-02-22 21:04] LABS: Urine Protein, UAD Negative (Negative)
[2025-02-22 21:08] LABS: Opiate Scree,Urine Neg (NEGATIVE)
[2025-02-22 21:09] LABS: Amphetamine Screen, Urine Neg (NEGATIVE); Barbiturate Scree,Urine Neg (NEGATIVE); Benzodiazephine Screen, Urine Neg (NEGATIVE); Cannabinoid Screen, Urine Neg (NEGATIVE); Cocaine Screen, Urine Pos (NEGATIVE); Phencyclidine Screen, Urine Neg (NEGATIVE)
[2025-02-22] MEDS: SODIUM CHLOR 0.9% PF (SALINE LOCK) 10ML VIAL/SYR IV SCH (22:21)
[2025-02-22] MEDS: SODIUM CHLORIDE 0.9% 1,000 ML IV SCH (22:21)
[2025-02-22] MEDS: PIPERACILLIN-TAZOB 3.375GM 100 ML IV SCH (22:21)
[2025-02-22 22:45] VITALS: PULSE 74; RESP 20; O2SAT 97
[2025-02-23] VITALS (10 sets, daily range): BP systolic 96–143; BP diastolic 51–81; PULSE 67–81; RESP 16–18; TEMP 97.7–98.5; O2SAT 97–100
[2025-02-23 05:48] LABS: Hematocrit 35.8 % (36.0-46.0); Hemoglobin 11.8 g/dL (12.2-16.2); Mean Corpuscular Hemoglobin 32.2 pg (28.0-32.0); Mean Corpuscular Volume 97.6 fL (80.0-100.0); Nucleated Red Blood Cells % 0.1 %
[2025-02-23 06:11] LABS: Alanine Aminotransferase 13 U/L (7-40); Albumin 3.2 g/dL (3.2-4.8); Alkaline Phosphatase 83 U/L (46-116); Anion Gap 7 (5-15); BUN/Creatinine Ratio 13.8 (10.0-20.0); Blood Urea Nitrogen 9 mg/dL (9-23); Calcium 8.1 mg/dL (8.7-10.4); Carbon Dioxide 27 mmol/L (20-31); Chloride 110 mmol/L (98-107); Glucose 152 mg/dL (74-106); Potassium 4.0 mmol/L (3.5-5.1); Sodium 144 mmol/L (136-145); Total Protein 5.4 g/dL (5.7-8.2)
[2025-02-23 06:12] LABS: Bilirubin, Total 0.5 mg/dL (0.2-1.0)
[2025-02-23] MEDS: VANCOMYCIN 750MG KIT 100 ML IV SCH (11:30)
[2025-02-23] MEDS: ENOXAPARIN SOD 40 MG/0.4 ML SYRINGE SC SCH (11:31)
[2025-02-23] MEDS: ONDANSETRON HCL 4 MG/2 ML VIAL IV PRN (13:37)
[2025-02-23] MEDS ORDERED: ALBUTEROL SULF 2.5 MG/0.5ML(0.5%) NEB SOLN NEB PRN (17:15)
--- NOTE | 2025-02-23 17:27 | DVHPNRES ---
Progress Note Date Seen: Feb 23, 2025 Resident Creating Document: GARRET PRINCE RESIDENT Medical Necessity Reason Pt with a Central, PICC or Fol: No Subjective Review of Systems This is a 54-year-old male with multiple medical history present to ER with a complaint of abdominal wall pain and brownish foul-smelling discharge approximately 2 weeks. Patient reported significant purulent discharge from the wound alone with generalized weakness. She denies any fever, constipation, vomiting, diarrhea, cough, chest pain or any other acute distress. As per patient, patient previous hospitalization need drainage of abdominal fluid. Initially patient noticed a scrape on abdominal wall and it fall off and become infected and drainage began. Patient had significant history of gastric wrist surgery somewhat 2024. Patient noncompliance with her medication. Medical History: T2 DM,Neuropathy,Asthma, Anxiety,CHF Surgical History: Gallbladder removal (cholecystectomy), C-sections Social History: Substance Use: Drinks wine occasionally but has decreased consumption recently, uses cocaine 2-3 times per week, denies tobacco use Living Situation: Lives with and son, has children at home Allergy no known allergy PCP: Ino Seen and evaluated in bedside today. Wound culture sent and brownish foul- smelling whitish discharge on abdominal wall noted. Patient currently denies any fever or any acute distress. Surgery consulted recommended to consult IR. Awaiting for IR recommendation. Objective vital signs Vital Sign Date Time Temp Pulse Resp B/P (MAP) Pulse Ox O2 Delivery O2 Flow Rate FiO2 02/23/25 13:00 98.5 81 18 143/81 (101) 99 98.5 02/23/25 08:00 Room Air* 0 21 Total Intake and Output 02/22/25 02/22/25 02/23/25 15:00 23:00 07:00 Intake Total 300 ml 700 ml Balance 300 ml 700 ml medications Current Medications Medications Dose Ordered Sig/Kevin Route Start Time Stop Time Status Last Admin Dose Admin Sodium Chloride 10 ml Q8HR IV 02/22/25 22:00 02/23/25 14:19 10 ML Acetaminophen/ Hydrocodone Bitart 1 tab Q4HP PRN PO 02/22/25 15:00 02/23/25 11:31 1 TAB Ondansetron HCl 4 mg Q4HP PRN IV 02/22/25 15:00 Enoxaparin Sodium 40 mg DAILY SC 02/23/25 10:00 02/23/25 11:31 40 MG Acetaminophen 650 mg Q6HP PRN PO 02/22/25 15:00 Diagnostic Test (Pha) 1 strip Q6HR 02/22/25 18:00 02/23/25 12:00 1 STRIP Insulin Human Regular Q6HR SC 02/22/25 18:00 02/23/25 12:28 4 UNITS Dextrose 50 ml UD PRN IV 02/22/25 15:00 Piperacillin Sod/ Tazobactam Sod 100 ml @ 25 mls/hr Q8HR IV 02/22/25 22:00 02/23/25 05:40 25 MLS/HR Vancomycin HCl 0 ml @ 0 mls/hr PER PHARMACY IV 02/22/25 16:00 Vancomycin HCl 100 ml @ 100 mls/hr Q12HR IV 02/23/25 10:00 02/23/25 11:30 100 MLS/HR Insulin Glargine 15 units HS SC 02/23/25 22:00 Examination General Appearance: Alert, Oriented X3, Cooperative, Not in acute distress HEENT: Atraumatic, Mucous membranes moist/pink Respiratory: Clear to auscultation, Normal air movement, No added sounds Cardiovascular: Regular rate, Normal S1, Normal S2, No murmurs Abdomen: Wound present on abdomen with purulent drainage noted and tenderness Extremities: No edema, Normal pulses, No tenderness/swelling Skin: as described in abdomen Neuro: Normal speech, sensorimotor deficits none Psych/Mental Status: Mental status NL, Mood NL Nurse was there as wire tinner during examination laboratory and microbiology Laboratory Tests 02/23/25 05:16 Test 02/23/25 05:16 Range/Units Serum Glucose 152 H 74-106 mg/dL Microbiology Date/Time Source Procedure Growth Status 02/22/25 11:06 Blood Blood Culture - Preliminary NO GROWTH AFTER 24 HOURS OF INCUBATION. Resulted Problem List/Assessment/Plan Problem List/Assessment/Plan Abdominal wall cellulitis Questionable abdominal wall abscess Abdominal wound infection CT abdomen showed right rectus abdominis/right ventral wall complex or heterogenous collection measuring 3x2.1x 7.3 cm. - Hospital admission for management of abdominal wound infection - IV antibiotics of Zosyn and vancomycin for now - obtain wound cultures and wound consult - surgery consulted and recommended IR consult -aortic for recommendation -pain management -monitor labs and vitals Leukopenia WBC 3.7 and repeat 3.5 CBC Uncontrolled type 2 DM with hyperglycemia Medication non-compliance Glargine 15 units Insulin sliding dose - Blood glucose monitoring - Medication reconciliation and adherence counseling done Cocaine use disorder polysubstance abuse - counseled regarding cessation for more than 11 minutes UDS pending Asthma, not on exacerbation Albuterol nebulization q.8h Hyperlipidemia Hypertensive heart disease likely systolic/diastolic heart failure Aspirin Atorvastatin Lisinopril Furosemide-home medication Polysubstance abuse UDS positive for cocaine More than 11 minute spent for counseling Hypocalcemia Monitor labs Small hiatal hernia Pantoprazole GI PPX: Protonix VTE ppx: Lovenox Goals of care addressed with the patient for more than 21 minutes: Full code status Case discussed with Dr. Real. Plan discussed with: Patient, Other (Nurse) My Orders My Orders Orders - GARRET PRINCE Procedure Category Date Status Time * Radiologist Consult CONS 02/23/25 Transmitted 15:01 * Wound Consult CONS 02/23/25 Transmitted Visit Coding STANDARD RES Billing Provider: HILARIO REAL MD Date of Service if different f: Feb 23, 2025 GARRET PRINCE Feb 23, 2025 17:27
--- NOTE | 2025-02-23 18:20 | DVHINCON2 ---
Consultation - Surgical Date Seen: Feb 23, 2025 Referring Physician Reason for Consultation Abdominal wall abscess History of Present Illness History of Present Illness Mrs. Moon is a 54-year-old female who presented due to abdominal pain and drainage coming from the epigastric skin area. States that during the summer she had an abscess in the abdominal wall that was taken care of with a drain and antibiotics. States that she was doing well until several days ago were a scab in the area of the drain fell off and pus started emanating from the wound. Patient denies any trauma to the area or insect bites. Denies fevers, chills, nausea, vomiting, changes in urinary or stooling habits. Patient also denies any recent surgeries. Past Medical/Surgical History Past Medical/Surgical History PMH diabetes, asthma, neuropathy, CHF, left bundle branch block PSH x4, lap choly, panniculectomy, gastric sleeve Family and Social History Family and Social History Family history noncontributory ETOH occasional T Ob denies Drugs cocaine last yesterday in the morning Allergies and medications Allergies: Coded Allergies: NO KNOWN ALLERGIES (Unverified , 03/24/11) Home Meds Active Scripts Famotidine (PEPCID TABLET) 20 Mg Tb, 1 TAB PO BID PRN for 30 Days, #60 TAB 3 Refills Prov:HILARIO REAL MD 12/29/23 Ibuprofen Micronized (MOTRIN TABLET) 600 Mg Tb, 600 MG PO TID PRN for 7 Days, #21 TAB *Black box warning-NSAIDS can increase risk of MO & hypertension, GI irritation, ulceration, bleed, perferation. Do not use post cardiac surgery. Use short duration/lowest effective dose. Prov:HILARIO REAL MD 12/29/23 Clindamycin HCl (Clindamycin Hydrochloride) 300 Mg Cap, 300 MG PO QID for 7 Days, #28 CAP Prov:HILARIO REAL MD 12/29/23 Reported Medications Hydroxyzine Hcl (Hydroxyzine Hcl) 50 Mg Tab, 50 MG PO HS, TAB 12/25/23 Umeclidinium [place] (Incruse Ellipta) 62.5 Mcg/Inh Inh, 1 PUFF IN PRN for SHORTNESS OF BREATH, INHALER 12/25/23 Albuterol Sulfate (VENTOLIN MDI) 90 Mcg Ih, 2 PUFF IN PRN for SHORTNESS OF BREATH, INH 12/25/23 Artificial Tear Solution (ARTIFICIAL TEARS) Tears [place], 1 DROP EACHEYE QID for DRY EYES, ML 12/25/23 Latanoprost (LATANOPROST) 0.005 % [place], 0.005 % OP HS, ML 12/25/23 Tramadol Hcl (Tramadol Hcl) 50 Mg Tab, 1 TAB PO TID 12/25/23 Semaglutide (Ozempic) 4 Mg/3 Ml Inj, 0.1 UNIT SC QWEEKLY 12/25/23 Insulin Glargine (Insulin Glargine Solostar) 300 Unit/Ml Inj, 40 UNIT SC QAM 12/25/23 Insulin Lispro (Humalog Kwikpen) 100 Unit/Ml Inj, 8-12 UNITS SC TIDBM 12/25/23 Trazodone HCl (Trazodone Hydrochloride) 50 Mg Tab, 50 MG PO HS, TAB 12/24/23 Gabapentin (Gabapentin) 800 Mg Tab, 1 TAB PO QID 12/24/23 Empagliflozin (Jardiance) 25 Mg Tab, 1 TAB PO DAILY 12/24/23 Clopidogrel Bisulfate (CLOPIDOGREL) 75 Mg Tab, 1 TAB PO DAILY 12/24/23 Atorvastatin Calcium (ATORVASTATIN CALCIUM) 40 Mg Tab, 1 TAB PO HS 12/24/23 Furosemide (Furosemide) 40 Mg Tab, 1 TAB PO BID 12/27/21 Lisinopril (Lisinopril) 5 Mg Tab, 1 TAB PO DAILY 12/27/21 Potassium Chloride (K-Tab) 20 Meq Tab, 1 TAB PO DAILY 12/27/21 Pantoprazole Sodium Sesquihydr (Pantoprazole Sodium) 40 Mg Tab, 1 TAB PO DAILY 12/27/21 Meloxicam (Meloxicam) 15 Mg Tab, 7.5 MG PO DAILY, #30 TAB 07/01/16 Aspirin (ASPIRIN 81) 81 Mg Tab, 81 MG PO DAILY, TAB 11/10/14 Review of systems Review of Systems: Deferred Examination Vital signs Vital Signs Date Time Temp Pulse Resp B/P (MAP) Pulse Ox O2 Delivery O2 Flow Rate FiO2 02/23/25 17:00 98.4 67 16 138/75 (96) 97 98.4 02/23/25 08:00 Room Air* 0 21 Medications Current Medications Medications (Trade) Dose Ordered Sig/Kevin Route PRN Reason Start Time Stop Time Status Last Admin Sodium Chloride (Saline Lock Ns) 10 ml Q8HR IV 02/22/25 22:00 02/23/25 14:19 Enoxaparin Sodium (Lovenox) 40 mg DAILY SC 02/23/25 10:00 02/23/25 11:31 Piperacillin Sod/ Tazobactam Sod 100 ml @ 25 mls/hr Q8HR IV 02/22/25 22:00 02/23/25 05:40 Vancomycin HCl 100 ml @ 100 mls/hr Q12HR IV 02/23/25 10:00 02/23/25 11:30 Insulin Glargine (Lantus) 15 units HS SC 02/23/25 22:00 Albuterol (Ventolin Medneb) 2.5 mg Q8HPRN PRN NEB SHORTNESS OF BREATH 02/23/25 17:15 Aspirin (Ecotrin Enteric Coated Tablet) 81 mg DAILY PO 02/24/25 10:00 UNV Lisinopril (Zestril Tablet) 5 mg DAILY PO 02/24/25 10:00 UNV Pantoprazole Sodium (Protonix Tablet) 40 mg DAILY PO 02/24/25 10:00 UNV Trazodone HCl (Desyrel) 50 mg HS PO 02/23/25 22:00 UNV Atorvastatin Calcium (Lipitor) 40 mg HS PO 02/23/25 22:00 Laboratory Labs Test 02/23/25 17:24 02/23/25 05:16 02/22/25 20:30 02/22/25 17:48 Range/Units POC Glucose 192 H 70-106 mg/dl White Blood Count 3.5 L 4.4-10.8 10^3/uL Red Blood Count 3.66 L 4.0-5.20 10^6/uL Hemoglobin 11.8 #L 12.2-16.2 g/dL Hematocrit 35.8 #L 36.0-46.0 % Mean Corpuscular Volume 97.6 80.0-100.0 fL Mean Corpuscular Hemoglobin 32.2 H 28.0-32.0 pg Mean Corpuscular Hemoglobin Concent 33.0 32.0-36.0 g/dL Red Cell Distribution Width 13.9 11.8-14.3 % Platelet Count 213 140-450 10^3/uL Mean Platelet Volume 8.5 6.9-10.8 fL Neutrophils (%) (Auto) 47.0 37.0-80.0 % Lymphocytes (%) (Auto) 38.9 10.0-50.0 % Monocytes (%) (Auto) 11.2 0.0-12.0 % Eosinophils (%) (Auto) 2.1 0.0-7.0 % Basophils (%) (Auto) 0.8 0.0-2.0 % Neutrophils # (Auto) 1.7 1.6-8.6 10 ^3/uL Lymphocytes # (Auto) 1.4 0.4-5.4 10 ^3/uL Monocytes # (Auto) 0.4 0-1.3 10 ^3/uL Eosinophils # (Auto) 0.1 0-0.8 10 ^3/uL Basophils # (Auto) 0 0-0.2 10 ^3/uL Nucleated Red Blood Cells 0.1 % Sodium Level 144 136-145 mmol/L Potassium Level 4.0 3.5-5.1 mmol/L Chloride Level 110 H 98-107 mmol/L Carbon Dioxide Level 27 20-31 mmol/L Anion Gap 7 5-15 Blood Urea Nitrogen 9 9-23 mg/dL Creatinine 0.65 0.550-1.02 mg/dL Glomerular Filtration Rate Calc 105 >90 mL/min BUN/Creatinine Ratio 13.8 10.0-20.0 Serum Glucose 152 H 74-106 mg/dL Calcium Level 8.1 L 8.7-10.4 mg/dL Total Bilirubin 0.5 0.2-1.0 mg/dL Aspartate Amino Transferase (AST) 15 13-40 U/L Alanine Aminotransferase (ALT) 13 7-40 U/L Alkaline Phosphatase 83 46-116 U/L Total Protein 5.4 L 5.7-8.2 g/dL Albumin 3.2 3.2-4.8 g/dL Random Vancomycin Level 6.6 5-10 ug/mL Urine Color Light-yellow Yellow Urine Clarity Clear Clear Urine pH 5.0 5.0-9.0 Urine Specific [place] 1.034 1.001-1.035 Urine Protein Negative Negative Urine Ketones Negative Negative Urine Blood Negative Negative /uL Urine Nitrite Negative Negative Urine Bilirubin Negative Negative Urine Urobilinogen Normal Negative mg/dL Urine Leukocyte Esterase Negative Negative /uL Urine RBC 1 0 - 4 /hpf Urine Microscopic WBC < 1 0-5 /HPF Urine Squamous Epithelial Cells Few <5 /hpf Urine Bacteria None seen None Seen /hpf Urine Mucus Few None Seen Urine Glucose 4+ H Normal mg/dL Urine Opiates Screen Neg NEGATIVE Urine Fentanyl Screen Neg NEGATIVE Urine Barbiturates Screen Neg NEGATIVE Urine Phencyclidine Screen Neg NEGATIVE Urine Amphetamines Screen Neg NEGATIVE Urine Benzodiazepines Screen Neg NEGATIVE Urine Cocaine Screen Pos NEGATIVE Urine Cannabinoids Screen Neg NEGATIVE Prothrombin Time 9.8 9.3-11.8 sec Prothrombin Time INR 0.92 0.9-1.15 Activated Partial Thromboplast Time 24.2 L 24.5-34.5 SEC Test 02/22/25 13:22 02/22/25 10:50 Range/Units Lactic Acid Level 1.9 0.4-2.0 mmol/L Hemoglobin A1c 13.5 H <5.7 % A1C C-Reactive Protein High Sensitivity 0.22 <1.0 mg/dL B-Type Natriuretic Peptide 116.43 0-100 pg/mL Microbiology Date/Time Source Procedure Growth Status 02/22/25 11:06 Blood Blood Culture - Preliminary NO GROWTH AFTER 24 HOURS OF INCUBATION. Resulted Examination: GENERAL:Normal (AAO x3), LUNGS:Normal (Nonlabored breathing with symmetric expansion), ABDOMEN:Abnormal (Nondistended, soft, depressible, epigastric pinpoint wound with purulent drainage, tender surrounding the draining area in the right hemiabdomen no rebound, no guarding) Problem List/Assessment/Plan Problems: (1) Abdominal wall abscess Assessment and Plan Mrs. Moon is a 54-year-old female who presented to the hospital due to drainage from previous drain site in the abdominal wall. CT shows a 3 x 2.1 x 7.3 cm right hemiabdomen abscess. Patient states that she had this abscess in the summer which was drained but it came back recently. Denies any trauma to the area. 1. IR consult for drain placement 2. Continue with IV antibiotics Plan discussed with Plan discussed with: Patient Visit Coding Surgery Date of Service if different f: Feb 23, 2025 Billing Provider: NAKIA LADD MD Surgery Visit Codes: 95123 - INP CONSULT <110 MIN NAKIA LADD MD Feb 23, 2025 18:20
[2025-02-23] MEDS: ATORVASTATIN 20 MG TAB PO SCH (21:08)
[2025-02-23] MEDS: INSULIN LANTUS (GLARGINE) 1 /0.01ml (100units/ml) SC SCH (23:27)
[2025-02-24 05:00] VITALS: BP 102/56; PULSE 68; RESP 19; TEMP 98; O2SAT 99
[2025-02-24] MEDS: PANTOPRAZOLE 40 MG TAB PO SCH (06:00)
[2025-02-24 06:52] LABS: Hematocrit 37.4 % (36.0-46.0); Hemoglobin 12.4 g/dL (12.2-16.2); Mean Corpuscular Hemoglobin 31.8 pg (28.0-32.0); Mean Corpuscular Volume 95.5 fL (80.0-100.0); Nucleated Red Blood Cells % 0.0 %
[2025-02-24 07:16] LABS: Anion Gap 10 (5-15); Carbon Dioxide 28 mmol/L (20-31); Potassium 3.9 mmol/L (3.5-5.1)
[2025-02-24 07:18] LABS: Calcium 8.6 mg/dL (8.7-10.4); Chloride 108 mmol/L (98-107); Sodium 146 mmol/L (136-145)
[2025-02-24 07:22] LABS: BUN/Creatinine Ratio 9.0 (10.0-20.0)
[2025-02-24 07:25] LABS: Blood Urea Nitrogen 6 mg/dL (9-23); Glucose 108 mg/dL (74-106)
[2025-02-24 08:30] VITALS: BP 111/86; PULSE 80; RESP 14; TEMP 97.6; O2SAT 97; O2SAT 98
[2025-02-24] MEDS: LISINOPRIL 5 MG TAB PO SCH (09:23)
[2025-02-24] MEDS: ASPirin-EC 81 mg tab PO SCH (09:23)
[2025-02-24 10:00] VITALS: O2SAT 97
[2025-02-24] MEDS ORDERED: GABAPENTIN 300 MG CAP PO ONE (11:45)
[2025-02-24] MEDS ORDERED: AUG875T PO (12:36)
[2025-02-24] MEDS ORDERED: CEPH250C PO (12:45)
--- NOTE | 2025-02-24 16:21 | DVHDSRES ---
Discharge Summary Date of Admission Resident Creating Document: GARRET PRINCE RESIDENT Feb 22, 2025 at 15:01 Date of Discharge: Feb 24, 2025 Labs/Diagnostic Data: Laboratory Results Test 02/24/25 11:42 02/24/25 06:02 02/23/25 05:16 02/22/25 20:30 POC Glucose 353 mg/dl (70-106) White Blood Count 3.0 10^3/uL (4.4-10.8) Red Blood Count 3.91 10^6/uL (4.0-5.20) Hemoglobin 12.4 g/dL (12.2-16.2) Hematocrit 37.4 % (36.0-46.0) Mean Corpuscular Volume 95.5 fL (80.0-100.0) Mean Corpuscular Hemoglobin 31.8 pg (28.0-32.0) Mean Corpuscular Hemoglobin Concent 33.3 g/dL (32.0-36.0) Red Cell Distribution Width 13.5 % (11.8-14.3) Platelet Count 238 10^3/uL (140-450) Mean Platelet Volume 8.6 fL (6.9-10.8) Neutrophils (%) (Auto) 37.0 % (37.0-80.0) Lymphocytes (%) (Auto) 49.2 % (10.0-50.0) Monocytes (%) (Auto) 11.0 % (0.0-12.0) Eosinophils (%) (Auto) 2.4 % (0.0-7.0) Basophils (%) (Auto) 0.4 % (0.0-2.0) Neutrophils # (Auto) 1.1 10 ^3/uL (1.6-8.6) Lymphocytes # (Auto) 1.5 10 ^3/uL (0.4-5.4) Monocytes # (Auto) 0.3 10 ^3/uL (0-1.3) Eosinophils # (Auto) 0.1 10 ^3/uL (0-0.8) Basophils # (Auto) 0 10 ^3/uL (0-0.2) Nucleated Red Blood Cells 0.0 % Sodium Level 146 mmol/L (136-145) Potassium Level 3.9 mmol/L (3.5-5.1) Chloride Level 108 mmol/L (98-107) Carbon Dioxide Level 28 mmol/L (20-31) Anion Gap 10 (5-15) Blood Urea Nitrogen 6 mg/dL (9-23) Creatinine 0.67 mg/dL (0.550-1.02) Glomerular Filtration Rate Calc 104 mL/min (>90) BUN/Creatinine Ratio 9.0 (10.0-20.0) Serum Glucose 108 mg/dL (74-106) Calcium Level 8.6 mg/dL (8.7-10.4) Total Bilirubin 0.5 mg/dL (0.2-1.0) Aspartate Amino Transferase (AST) 15 U/L (13-40) Alanine Aminotransferase (ALT) 13 U/L (7-40) Alkaline Phosphatase 83 U/L (46-116) Total Protein 5.4 g/dL (5.7-8.2) Albumin 3.2 g/dL (3.2-4.8) Random Vancomycin Level 6.6 ug/mL (5-10) Urine Color Light-yellow (Yellow) Urine Clarity Clear (Clear) Urine pH 5.0 (5.0-9.0) Urine Specific [place] 1.034 (1.001-1.035) Urine Protein Negative (Negative) Urine Ketones Negative (Negative) Urine Blood Negative /uL (Negative) Urine Nitrite Negative (Negative) Urine Bilirubin Negative (Negative) Urine Urobilinogen Normal mg/dL (Negative) Urine Leukocyte Esterase Negative /uL (Negative) Urine RBC 1 /hpf (0 - 4) Urine Microscopic WBC < 1 /HPF (0-5) Urine Squamous Epithelial Cells Few /hpf (<5) Urine Bacteria None seen /hpf (None Seen) Urine Mucus Few (None Seen) Urine Glucose 4+ mg/dL (Normal) Urine Opiates Screen Neg (NEGATIVE) Urine Fentanyl Screen Neg (NEGATIVE) Urine Barbiturates Screen Neg (NEGATIVE) Urine Phencyclidine Screen Neg (NEGATIVE) Urine Amphetamines Screen Neg (NEGATIVE) Urine Benzodiazepines Screen Neg (NEGATIVE) Urine Cocaine Screen Pos (NEGATIVE) Urine Cannabinoids Screen Neg (NEGATIVE) Test 02/22/25 17:48 02/22/25 13:22 02/22/25 10:50 Prothrombin Time 9.8 sec (9.3-11.8) Prothrombin Time INR 0.92 (0.9-1.15) Activated Partial Thromboplast Time 24.2 SEC (24.5-34.5) Lactic Acid Level 1.9 mmol/L (0.4-2.0) Hemoglobin A1c 13.5 % A1C (<5.7) C-Reactive Protein High Sensitivity 0.22 mg/dL (<1.0) B-Type Natriuretic Peptide 116.43 pg/mL (0-100) Other Laboratory Tests 02/24/25 06:02 Brief Hx & Hospital Course: This is a 54-year-old male with multiple medical history present to ER with a complaint of abdominal wall pain and brownish foul-smelling discharge approximately 2 weeks. Patient reported significant purulent discharge from the wound alone with generalized weakness. She denies any fever, constipation, vomiting, diarrhea, cough, chest pain or any other acute distress. As per patient, patient previous hospitalization need drainage of abdominal fluid. Initially patient noticed a scrape on abdominal wall and it fall off and become infected and drainage began. Patient had significant history of gastric wrist surgery somewhat 2024. Patient noncompliance with her medication. Medical History: T2 DM,Neuropathy,Asthma, Anxiety,CHF Surgical History: Gallbladder removal (cholecystectomy), C-sections Social History: Substance Use: Drinks wine occasionally but has decreased consumption recently, uses cocaine 2-3 times per week, denies tobacco use Living Situation: Lives with and son, has children at home Allergy no known allergy Hospital course: Patient admitted due to anterior abdominal wall cellulitis associated with questionable abscess. CT abdomen showed right rectus abdominis/right ventral wall complex or heterogenous collection measuring 3x2.1x 7.3 cm. Patient treated conservatively with IV antibiotic and patient's symptoms significantly improved. Surgery consulted recommended IR consult possible drainage. IR verbally recommended continue IV antibiotic and at this point patient no need any drainage. On examination on 02/24/2025, patient denies any active discharge or bleeding. Blood culture x2 became negative. Lab showed mild leukopenia. Patient noncompliance with his medication, discussed adverse effects of noncompliance, patient verbalized understanding what ever discussed. During admission patient blood glucose was high and hemoglobin A1c 13.5. Patient blood sugar well controlled during hospitalization with insulin. Recommended to continue home medication when discharged from hospital. Patient advised to continue Keflex 14 days oral antibiotic and medications sent to pharmacy. On examination 02/05/2006/21/2024, patient denies any fever, SOB, chest pain, abdominal pain, constipation, nausea, vomiting, dysuria or any focal weakness, vision any abdominal wall pain. Patient got maximum benefit during inpatient stay, treated both acute and chronic medical conditions. Patient is hemodynamically stable for discharge. Patient has received maximum benefit from inpatient treatment. Time was given to answer patient's questions and concerns in layman terms and explained by RN. Patient verbalized understanding and agreed with treatment and follow-up. Patient was recommended to return to ER if he experiences any worsening symptoms not limited to current symptoms. Follow-up with PCP and outpatient continuity clinic within week after discharge. Medications sent to the pharmacy. Physical examination Constitutional: No: Fever, Chills, Sweats, Weakness, Malaise, Other Eyes: No: Pain, Vision change, Conjunctivae inflammation, Eyelid inflammation, Other, Redness ENT: No: Ear pain, Ear discharge, Nose pain, Nose discharge, Nose congestion, Mouth pain, Mouth swelling, Throat pain, Throat swelling, Other Respiratory: Shortness of breath; No: Cough, Dry, SOB with excertion, Wheezing, Hemoptysis, Pleuritic Pain, Sputum, Wheezing, Other Cardiovascular: No: Chest Pain, Palpitations, Orthopnea, Paroxysmal Noc. Dyspnea, Edema, Lt Headedness, Other Gastrointestinal: No: Nausea, Vomiting, Abdominal Pain, Diarrhea, Constipation, Melena, Hematochezia, Other Genitourinary: No Dysuria, No Frequency, No Incontinence, No Hematuria, No Retention, No Other Musculoskeletal: No: other, neck pain, shoulder pain, arm pain, back pain, hand pain, leg pain, foot pain Skin: No: Rash, Lesions, Jaundice, Bruising, Other Neurological: No: Weakness, Numbness, Incoordination, Change in speech, Confusion, Seizures, Other More than 23 minute spent with patient. Case discussed with patient, nurse, Dr. Real. Condition at Discharge: Stable Final Diagnosis/Problems List Anterior abdominal wall cellulitis/abscess. Abdominal wound infection Leukopenia Uncontrolled type 2 DM with hyperglycemia Medication non-compliance Asthma, not on exacerbation Hyperlipidemia Hypertensive heart disease likely systolic/diastolic heart failure Hypocalcemia Small hiatal hernia Polysubstance abuse Discharge Disposition: Home Discharge Instruct/Medications Diet: Consistent carbohydrate Activity: No Restrictions, As Tolerated Follow Up/Referral: PCP within week after discharge Outpatient continuity clinic within week after discharge Outpatient endocrinology 4-6 weeks after discharge Scheduled Artificial Tear Solution (Artificial Tears), 1 DROP EACHEYE QID, (Reported) Aspirin (Aspirin 81), 81 MG PO DAILY, (Reported) Atorvastatin Calcium (Atorvastatin Calcium), 1 TAB PO HS, (Reported) Cephalexin (Keflex Capsule), 250 MG PO Q6HR Clopidogrel Bisulfate (Clopidogrel), 1 TAB PO DAILY, (Reported) Empagliflozin (Jardiance), 1 TAB PO DAILY, (Reported) Furosemide (Furosemide), 1 TAB PO BID, (Reported) Gabapentin (Gabapentin), 1 TAB PO QID, (Reported) Hydroxyzine Hcl (Hydroxyzine Hcl), 50 MG PO HS, (Reported) Insulin Glargine (Insulin Glargine Solostar), 40 UNIT SC QAM, (Reported) Insulin Lispro (Humalog Kwikpen), 8-12 UNITS SC TIDBM, (Reported) Latanoprost (Latanoprost), 0.005 % OP HS, (Reported) Lisinopril (Lisinopril), 1 TAB PO DAILY, (Reported) Pantoprazole Sodium Sesquihydr (Pantoprazole Sodium), 1 TAB PO DAILY, (Reported) Potassium Chloride (K-Tab), 1 TAB PO DAILY, (Reported) Trazodone HCl (Trazodone Hydrochloride), 50 MG PO HS, (Reported) Scheduled PRN Albuterol Sulfate (Ventolin Mdi), 2 PUFF IN for SHORTNESS OF BREATH, (Reported) Discontinued Medications Clindamycin HCl (Clindamycin Hydrochloride), 300 MG PO QID Famotidine (Pepcid Tablet), 1 TAB PO BID PRN Ibuprofen Micronized (Motrin Tablet), 600 MG PO TID PRN Meloxicam (Meloxicam), 7.5 MG PO DAILY, (Reported) Semaglutide (Ozempic), 0.1 UNIT SC QWEEKLY, (Reported) Tramadol Hcl (Tramadol Hcl), 1 TAB PO TID, (Reported) Umeclidinium [place] (Incruse Ellipta), 1 PUFF IN for SHORTNESS OF BREATH, (Reported) Discharge Statement: "Patient was advised to return to the ER or call 911 if any headaches, dizziness, shortness of breath, chest pain, abdominal pain, bleeding, fevers, or worsening of medical condition. Patient was counseled about treatment plan, medications, possible side effects, patientverbalized understanding. All questions were answered to the best of my ability. This discharge took greater then 30 minutes in planning, reviewing documentation, counseling the patient, and discussing with other team members." ASSESSMENT ASSESSMENT Assessment Anterior abdominal wall cellulitis/abscess. Visit Coding STANDARD RES Billing Provider: HILARIO REAL MD Date of Service if different f: Feb 24, 2025 Common Visit Codes: 82172-OQQ/OBS DISCH DAY >30min GARRET PRINCE RESIDENT Feb 24, 2025 16:21 HILARIO REAL MD Feb 26, 2025 23:56
== END 2025-02-24 13:39 | disposition home or self-care (01) | DRG 383 ==
LOC: ER 08:41 → OVERFLOW 15:01 → WEST WING 02-23 09:22
PROVIDERS: ADMIT Student in an Organized Health Care Education/Training Program; ATTEND Student in an Organized Health Care Education/Training Program
DX: L02.211 Cutaneous abscess of abdominal wall (principal); I50.40 Unspecified combined systolic (congestive) and diastolic (congestive) heart failure; E83.51 Hypocalcemia; E11.65 Type 2 diabetes mellitus with hyperglycemia; D72.819 Decreased white blood cell count, unspecified; E11.40 Type 2 diabetes mellitus with diabetic neuropathy, unspecified; E78.5 Hyperlipidemia, unspecified; L03.311 Cellulitis of abdominal wall; F32.A Depression, unspecified; J45.909 Unspecified asthma, uncomplicated; F19.10 Other psychoactive substance abuse, uncomplicated; F41.9 Anxiety disorder, unspecified; K44.9 Diaphragmatic hernia without obstruction or gangrene; Z91.148 Patient's other noncompliance with medication regimen for other reason; Z86.73 Personal history of transient ischemic attack (TIA), and cerebral infarction without residual deficits; Z90.49 Acquired absence of other specified parts of digestive tract; Z79.899 Other long term (current) drug therapy; Z79.4 Long term (current) use of insulin; Z79.82 Long term (current) use of aspirin
CPT/HCPCS: 36415; 71045; 74176; 80048; 80053; 80202; 80307; 81001; 82962; 83036; 83605; 83880; 85025; 85610; 85730; 86141; 87040; 87077; 87081; 87186; 87205; 96365; G0378; J1815; J2405; J2543